=== PATIENT | female | born 1990 | race Caucasian/White ===

== ENCOUNTER 2022-06-11 20:04 | Emergency (ER) | payer MEDICAID, SELFPAY ==
[2022-06-11] VITALS (7 sets, daily range): BP systolic 118–147; BP diastolic 67–95; PULSE 72–86; RESP 12–25; TEMP 36.4; O2SAT 97–99; BMI 51.5
--- NOTE | 2022-06-11 20:08 | ECG_ITS ---
[facility] Test Date: 2022-06-11 Pat Name: Afshan Ratliff Department: Room: Gender: Female Aerial Installer: : 1990 Requested By: Alexandrea Moreno Order Number: [id number] Chavo MD: Yanira Patel M.D. Measurements Intervals [place] Rate: 84 P: 47 VA: 197 QRS: 22 QRSD: 114 T: 24 QT: 367 QTc: 434 Interpretive Statements SINUS RHYTHM WITH SINUS ARRHYTHMIA INCOMPLETE RIGHT BUNDLE BRANCH BLOCK [90+ ms QRS DURATION, TERMINAL R IN V1/V2, 40+ ms S IN I/aVL/V4/V5/V6] NONSPECIFIC ST ELEVATION [0.05+ mV ST ELEVATION] No previous ECG available for comparison Electronically Signed On 06-12-2022 19:03:43 DIDACTIC PROGRAM IN DIETETICS DIRECTOR by Yanira Patel M.D. [id number]
[2022-06-11 21:03] LABS: Basophils # 0.1 10^3/uL (0.0-0.1); Basophils % 0.5 %; Eosinophils # 0.2 10^3/uL (0.0-0.8); Hematocrit 32.9 % (37.0-47.0); Hemoglobin 10.4 g/dL (11.5-15.3); Lymphocytes # 2.8 10^3/uL (0.8-4.8); Lymphocytes % 25.6 %; Mean Corpuscular HGB Conc 31.6 g/dL (30.0-36.0); Mean Corpuscular Hemoglobin 25.1 pg (28.0-34.0); Mean Corpuscular Volume 79.5 fl (81-99); Mean Platelet Volume 9.5 fL (7.4-10.4); Monocytes # 0.6 10^3/uL (0.2-0.9); Neutrophils # 7.31 10^3/uL (1.8-7.7); Neutrophils % 66.5 %; Nucleated Red Blood Cells % 0 %; Platelet Count 341 10^3/cmm (130-400); Red Blood Count 4.14 10^6/uL (4.1-5.3); Red Cell Distribution Width 15.3 % (12.1-15.1)
[2022-06-11 21:16] LABS: HCG, Serum Qual Negative (Negative)
--- NOTE | 2022-06-11 21:48 | W.ED.SYNCOPE ---
HPI - Syncope General: Chief Complaint: Syncope Stated Complaint: DIZZY Time Seen by Provider: 06/11/22 21:42 Source: patient Mode of arrival: ambulatory Limitations: no limitations History of Present Illness: 31-year-old female who states she had went to the bathroom states started feeling lightheaded dizzy and nauseous states that she got on her knees and vomited and then had a syncopal event. States that since then she is just felt generally weak she denies any chest pain denies any headache denies any shortness of breath denies any worsening proving factors. Associated symptoms: Deny fever(s) or headache(s) Review of Systems Const: Denies: fever(s), chills, body aches or change in appetite Eyes: Denies: blurry vision or eye discomfort ENMT: Denies: throat pain or dental pain Card: Reports: syncope Resp: Denies: dyspnea GI: Reports: vomiting : Denies: dysuria Musc: Denies: neck pain or back pain Skin/Breast: Denies: rash Neuro: Denies: headache(s) Psych: Denies: depression Theo/Lymph: Denies: easy bruising All/Imm: Denies: urticaria PFSH ED PFSH: Medical History (Updated 06/11/22 @ 22:37 by Alexandrea Moreno MD) Psychiatric care Social History Smoking and tobacco status: never smoked Second hand smoke exposure: No Smoking risk assessment/counseling performed?: No Alcohol intake: current Alcohol intake frequency: holidays/special occasions only Alcohol type: beer, wine and hard liquor Desire information about alcohol rehabilitation?: No Counseling given: Yes (Alcohol & meds don't mix.) Desire information about substance/drug rehabilitation?: No Counseling given: No Female Reproductive History: Date of last menstrual period: 06/04/22 Physical Exam Const: COMMON NORMALS: no acute distress, patient oriented x3 and healthy appearing HENMT: COMMON NORMALS: normocephalic and atraumatic HEAD & SCALP: normocephalic and atraumatic Eye: COMMON NORMALS: Equal, round and reactive pupils present and EOMs intact bilaterally PUPIL: Yes Equal, round and reactive pupils present Neck/C-Spine: COMMON NORMALS: full ROM and supple Chest: COMMONS NORMALS: normal inspection of the chest and normal palpation of entire chest wall Resp: COMMON NORMALS: normal respiratory effort, No retractions, No use of accessory muscles and clear to auscultation bilaterally AUSCULTATION: clear to auscultation bilaterally Cardio: COMMON NORMALS: regular rate, regular rhythm and No murmurs present (Cardio) RATE: regular rate RHYTHM: regular rhythm GI: COMMON NORMALS: Normal to inspection, nondistended, normoactive bowel sounds present, Soft to palpation, non-tender and no masses PALPATION: Yes Soft to palpation Extremity: COMMON NORMALS: normal to inspection and full ROM Neuro: COMMON NORMALS: patient oriented x3, moves all extremities and no focal motor deficits Psych: COMMON NORMALS: mental status grossly normal, Normal thought process present and cooperative THOUGHT PROCESS: Normal thought process present Skin: COMMON NORMALS: no rashes or lesions noted and no wounds GENERAL SKIN EXAM: no rashes or lesions noted Course Vital Signs: Vital signs: Vital Signs Temperature 97.6 F 06/11/22 20:33 Pulse Rate 84 06/11/22 21:46 Respiratory Rate 25 H 06/11/22 21:46 Blood Pressure 125/79 06/11/22 21:46 Pulse Oximetry 98 06/11/22 21:46 Oxygen Delivery Me thod 06/11/22 21:46 MDM - Syncope Medical Decision Making Patient presents here with syncopal event is likely a vagal event. Patient is stable for discharge blood work here is negative her vitals here been normal she is stable and return if worsening. Lab Data 06/11/22 20:58 Laboratory Results WBC 11.0 10^3/uL (4.0-10.0) H 06/11/22 20:58 RBC 4.14 10^6/uL (4.1-5.3) 06/11/22 20:58 Hgb 10.4 g/dL (11.5-15.3) L 06/11/22 20:58 Hct 32.9 % (37.0-47.0) L 06/11/22 20:58 MCV 79.5 fl (81-99) L 06/11/22 20:58 MCH 25.1 pg (28.0-34.0) L 06/11/22 20:58 MCHC 31.6 g/dL (30.0-36.0) 06/11/22 20:58 RDW 15.3 % (12.1-15.1) H 06/11/22 20:58 Plt Count 341 10^3/cmm (130-400) 06/11/22 20:58 MPV 9.5 fL (7.4-10.4) 06/11/22 20:58 Neut % (Auto) 66.5 % 06/11/22 20:58 Lymph % (Auto) 25.6 % 06/11/22 20:58 [place] % (Auto) 5.0 % 06/11/22 20:58 Eos % (Auto) 2.0 % 06/11/22 20:58 Baso % (Auto) 0.5 % 06/11/22 20:58 Neut # (Auto) 7.31 10^3/uL (1.8-7.7) 06/11/22 20:58 Lymph # (Auto) 2.8 10^3/uL (0.8-4.8) 06/11/22 20:58 [place] # (Auto) 0.6 10^3/uL (0.2-0.9) 06/11/22 20:58 Eos # (Auto) 0.2 10^3/uL (0.0-0.8) 06/11/22 20:58 Baso # (Auto) 0.1 10^3/uL (0.0-0.1) 06/11/22 20:58 Nucleated RBC % (auto) 0 % 06/11/22 20:58 Nucleated RBCs # 0.0 /100WBC 06/11/22 20:58 Sodium 139 mmol/L (136-145) 06/11/22 20:58 Potassium 3.7 mmol/L (3.5-5.1) 06/11/22 20:58 Chloride 102 mmol/L (98-107) 06/11/22 20:58 Carbon Dioxide 26 mmol/L (22-29) 06/11/22 20:58 Anion Gap 14.7 (5-19) 06/11/22 20:58 BUN 15 mg/dL (6-20) 06/11/22 20:58 Creatinine 0.8 mg/dL (0.5-0.9) 06/11/22 20:58 GFR Calculation 83.1 mL/min (90-130) L 06/11/22 20:58 Glucose 112 mg/dL (65-115) 06/11/22 20:58 Calculated Osmolality 290 mOsm/kg (285-295) 06/11/22 20:58 Calcium 9.3 mg/dL (8.5-10.5) 06/11/22 20:58 HCG, Qual Negative (Negative) 06/11/22 20:58 Discharge Plan Discharge Patient Disposition: Home Clinical Impression: Syncope Condition: Stable Prescriptions: No Action fluticasone propionate [Flonase Allergy Relief] 50 mcg/actuation spray,suspension 1 spray intranasal DAILY Rx Instructions: administer into each nostril trazodone 50 mg tablet 100 mg PO .HS PRN (Reason: insomnia) Qty: 60 2RF fluoxetine [Prozac] 20 mg capsule 20 mg PO DAILY Qty: 30 2RF Discharge Orders: Discharge ED (Routine); Ordered 06/11/22 Ordered By: Alexandrea Moreno Referrals: Binu Villeda MD [Primary Care Provider] - 1-3 days Discharge Diet: Advance as tolerated Discharge Activity: Resume usual activity Patient Instructions: Syncope (ED) Coding Level of Care Code ED Poolroom Table Attendant for Chg Fwd Exam Comprehensive
[2022-06-11] MEDS: ondansetron 2 mg/ML SDV 2 mL 4 MG IVP (22:14)
[2022-06-11] MEDS: sodium chloride 0.9% 1,000 ML 999 ML IV (22:14)
[2022-06-11 22:35] LABS: Anion Gap 14.7 (5-19); Blood Urea Nitrogen 15 mg/dL (6-20); Calcium 9.3 mg/dL (8.5-10.5); Carbon Dioxide 26 mmol/L (22-29); Chloride 102 mmol/L (98-107); Creatinine Clr Calc Pharmacy 139.0566; Glomerular Filtration Rate 83.1 mL/min (90-130); Glucose 112 mg/dL (65-115); Osmolality Calculated 290 mOsm/kg (285-295); Potassium 3.7 mmol/L (3.5-5.1); Sodium 139 mmol/L (136-145)
== END 2022-06-11 23:30 | disposition home or self-care (01) ==
PROVIDERS: Emergency Provider Emergency Medicine; PCP Family Medicine
DX: R55 Syncope and collapse (principal)
CPT/HCPCS: 36415; 80048; 84703; 85025; 93005; 96361; 96374; 99284; J2405; J7030

== ENCOUNTER 2022-07-06 17:48 | Emergency (ER) | payer MEDICAID, SELFPAY ==
[2022-07-06 18:00] VITALS: BP 128/84; PULSE 80; RESP 14; TEMP 36.6; O2SAT 98
[2022-07-06] MEDS: amoxicillin-clav 875-125 mg Tablet 1 TAB PO (20:44)
[2022-07-06] MEDS: predniSONE 20 mg Tablet 60 MG PO (20:45)
[2022-07-06] MEDS: albuterol 2.5 mg/3 mL Neb INHALATION (20:54)
[2022-07-06 20:55] VITALS: PULSE 56; RESP 18; O2SAT 99
[2022-07-06 21:01] VITALS: PULSE 58; RESP 18; O2SAT 99
[2022-07-06] MEDS: ketorolac 30 mg/mL INJ IM (21:33)
--- NOTE | 2022-07-06 21:43 | ED_ITS ---
HPI - URI/Sore Throat General: Chief Complaint: Upper Respiratory Infection Stated Complaint: FLU LIKE SYMPTOMS Time Seen by Provider: 07/06/22 20:11 Source: patient Mode of arrival: wheelchair Limitations: no limitations History of Present Illness: Patient presents to emergency department today accompanied by her younger son for evaluation treatment of various upper respiratory symptoms now for approximately 1 week. Patient states she is having cough and rhinorrhea for 1 week but seem to be worse today. She reports an intense fatigue and bilateral ear pressure with right ear pain. Patient states she feels tight in her lower chest when she coughs and feels like she may be wheezing. Patient reports of posttussive emesis episode today. She denies any history of asthma. No recorded fevers. Associated symptoms: Reports ear or mastoid pain and nasal congestion Review of Systems General: Reports: 10 or more systems reviewed and unremarkable except in HPI and below ENMT: Reports: throat pain, ear or mastoid pain, change in hearing ( echo ) and nasal congestion; Denies: ear discharge Resp: Reports: non-productive cough, wheezing and pain on inspiration PFSH ED PFSH: Medical History Psychiatric care Social History Smoking and tobacco status: never smoked Second hand smoke exposure: No Smoking risk assessment/counseling performed?: No Alcohol intake: current Alcohol intake frequency: holidays/special occasions only Alcohol type: beer, wine and hard liquor Desire information about alcohol rehabilitation?: No Counseling given: Yes (Alcohol & meds don't mix.) Desire information about substance/drug rehabilitation?: No Counseling given: No Female Reproductive History: Date of last menstrual period: 06/04/22 Physical Exam Const: COMMON NORMALS: patient oriented x3 and alert; apparent distress (Anxious) HENMT: OTHER: Patient has erythema to the right TM with purulent accumulation approximately half the eardrum. EACs clear. Left TM is erythematous and bulging with fluid but no signs of purulent accumulation. Pharynx is nonerythematous. Nasal passages are erythematous and boggy without significant accumulation present. Eye: COMMON NORMALS: Equal, round and reactive pupils present, EOMs intact bilaterally and conjunctivae normal CONJUNCTIVA: Yes conjunctivae normal PUPIL: Yes Equal, round and reactive pupils present Neck/C-Spine: COMMON NORMALS: no JVD Lymph: LYMPHATIC: no lymphadenopathy noted Resp: COMMON NORMALS: normal respiratory effort, No retractions and No use of accessory muscles; negative for clear to auscultation bilaterally (Generally coarse lung sounds, diminished at bilateral bases) AUSCULTATION: not clear to auscultation bilaterally (Generally coarse lung sounds, diminished at bilateral bases) Cardio: COMMON NORMALS: no JVD and regular rate RATE: regular rate : COMMON NORMALS: Yes no CVA tenderness BLADDER/KIDNEY EXAM: Yes no CVA tenderness Back/Pelvis: COMMON NORMALS: no CVA tenderness, thoracic and lumbar spine normal to inspection and thoraco-lumbar ROM normal Extremity: COMMON NORMALS: normal to inspection, full ROM and no pedal edema Neuro: COMMON NORMALS: patient oriented x3 SENSORIUM/ORIENTATION: Yes alert Psych: MOOD & AFFECT: Yes anxious Skin: COMMON NORMALS: no rashes or lesions noted and turgor normal GENERAL SKIN EXAM: no rashes or lesions noted and turgor normal Course Vital Signs: Vital signs: Vital Signs Temperature 97.9 F 07/06/22 18:00 Pulse Rate 58 L 07/06/22 21:01 Respiratory Rate 18 07/06/22 21:01 Blood Pressure 128/84 07/06/22 18:00 Pulse Oximetry 99 07/06/22 21:01 Oxygen Delivery Me thod 07/06/22 21:01 MDM - URI/Sore Throat Medical Decision Making Patient presents to the ER today for various upper respiratory symptoms for approximately 1 week. Patient vitals are stable on arrival however, patient is extremely anxious regarding her symptoms. Patient feels like she lost 4 hours during the day but does not indicate any type of syncopal episode. Patient has some generalized congestion and lung noise bilaterally with some diminished lung sounds at the bases and received a breathing treatment here. She did get jittery but, did open up her airways for better auscultation. Patient has some generalized coarse lung noises throughout still but no signs of consolidation. Patient has findings of a right-sided ear infection. Patient asked if we are going to have to keep her and I explained her that vital signs are stable and she does not appear toxic and shows no signs of respiratory distress. She will be treated here in the ER and sent home for further treatment. Patient states she is concerned that she will not have all of her issues addressed and treated today. Went over treatment for her cough and congestion as well as her ear infection. Patient was given first set of treatment here in the ER given the time of night and the holiday. However, the rest were sent to the pharmacy on her behalf except she did request an albuterol inhaler be sent with her as well. Also at discharge, patient then began complaining of pain wanting something for her ear pain. Toradol provided. Patient was instructed to continue [id number] treatments and can follow-up with her primary care at the end of the week. Differential Diagnosis Likely upper respiratory infection, otitis media, sinusitis, viral infection, bronchitis and influenza Discharge Plan Discharge Patient Disposition: Home Clinical Impression: Acute right otitis media, Acute lower respiratory infection Condition: Stable Prescriptions: New amoxicillin-pot clavulanate 875-125 mg tablet 1 tab PO BID Qty: 20 0RF prednisone 20 mg tablet 20 mg PO BID 5 Days Qty: 10 0RF albuterol sulfate 90 mcg/actuation HFA aerosol inhaler 2 inh inhalation Q4H PRN (Reason: shortness of breath or wheezing) Qty: 8.5 0RF benzonatate 100 mg capsule 100 mg PO TID Qty: 30 0RF No Action fluticasone propionate [Flonase Allergy Relief] 50 mcg/actuation spray,suspension 1 spray intranasal DAILY Rx Instructions: administer into each nostril trazodone 50 mg tablet 100 mg PO .HS PRN (Reason: insomnia) Qty: 60 2RF fluoxetine [Prozac] 20 mg capsule 20 mg PO DAILY Qty: 30 2RF Discharge Orders: Discharge ED (Routine); Ordered 07/06/22 Ordered By: Clementina Bowen Referrals: Binu Villeda MD [Primary Care Provider] - Discharge Diet: Usual diet Discharge Activity: Increase activity as tolerated Patient Instructions: Ear Infection (ED), Acute Cough (ED) Activity Restrictions/Additional Instructions: Based on your examination, symptoms, and length of time you have been having them, we will treat for lower respiratory infection as well as the finding of the right ear infection. The antibiotic provided to you will give us coverage for both. Be sure you are eating a meal or a snack while taking this medicine as it can cause upset stomach. We will treat your cough and airway tightness with a couple different medications. For acute coughing and airway tightness we have given you a rescue inhaler. In an effort to prevent airway tightness we are treating you with prednisone. To treat your cough in general we are providing you with Tessalon Perles. You can still use [id number] medications as needed. I recommend a follow-up appointment if possible for recheck of any symptoms in 1 week. Please be aware that upper respiratory illnesses can often be accompanied by cough lasting a couple of weeks. Thank you! Coding Level of Care Code ED Supervisor Filling And Packing for Amy Mitchell
== END 2022-07-06 22:21 | disposition home or self-care (01) ==
PROVIDERS: Emergency Provider Physician Assistant; PCP Family Medicine
DX: H66.91 Otitis media, unspecified, right ear (principal); J22 Unspecified acute lower respiratory infection
CPT/HCPCS: 94640; 96372; 99284; J1885; J3535; J7512; J7613

== ENCOUNTER → 2023-03-17 14:06 | Outpatient (BNVA) | payer OTHER, SELFPAY | PROVIDERS: PCP Family Medicine; Visit Provider Dermatology | DX: F43.12 Post-traumatic stress disorder, chronic (principal) | CPT/HCPCS: 80061; 83036 ==

== ENCOUNTER 2023-04-24 09:01 | Emergency (ER) | payer OTHER, MEDICAID, SELFPAY ==
[2023-03-26 11:39] VITALS: BP 145/98; BMI 52.1
[2023-04-24] VITALS (9 sets, daily range): BP systolic 125–178; BP diastolic 74–113; PULSE 62–90; RESP 16–18; TEMP 36.8; O2SAT 99–100
--- NOTE | 2023-04-24 09:18 | CT_ITS ---
WS: [id number] CT HEAD NONCONTRAST HISTORY: MIGRAINE /hx ICH TECHNIQUE: Contiguous axial imaging performed through the brain in 2.5 mm imaging. Bone and soft tiss ue windows. Sagittal and coronal reformats reviewed. All CT scans at [facility] use at least one of these dose optimization techniques: automated exposure control; mA and/or kV adjustment per pa tient size (includes targeted exams where dose is matched to clinical indication); or iterative recon struction. DLP: 1035.68 mGy.cm COMPARISON: None available. No acute intracranial hemorrhage, midline shift or mass effect. No atrophy or prior infarcts or herniation. Ventricles: Normal size with no hydrocephalus. Paranasal sinuses: Mucoperiosteal thickening in the paranasal ethmoid air cells. No air-fluid levels within the visualized sinuses. No destruction. Mastoid air cells: Well pneumatized. Calvarium and scalp: Skull is intact with no soft tissue edema or swelling. IMPRESSION: 1. No acute intracranial hemorrhage or edema. 2. Normal ventricles. No prior infarct.
--- NOTE | 2023-04-24 09:18 | W.ED.HA ---
HPI - Headache General: Chief Complaint: Headache Stated Complaint: Headache Time Seen by Provider: 04/24/23 09:06 Source: patient Mode of arrival: ambulatory History of Present Illness: 32-year-old female presents emergency room complaint of headache that began at 530 this morning. Patient has a history of migraines history of intracranial hypertension. She is having difficulty with speech. No recent medication changes or deletions. Blood pressure is markedly elevated. MD elicited complaint: headache Onset (ago): hour(s) (4) Onset description: suddenly Location: frontal Severity: severe Quality & Timing: throbbing Exacerbating factors: none Relieving factors: nothing Associated symptoms: Deny chest pain, confusion, cough, diaphoresis, eye pain, eye redness, fever(s), lightheadedness, loss of vision, malaise, nausea, neck stiffness, numbness, paresthesias, photophobia, pre-syncope, rash, seizures, short of breath, sound sensitivity, syncope, vomiting or weakness Review of Systems Const: Denies: fever(s), malaise or diaphoresis Card: Denies: chest pain, lightheadedness, syncope or pre-syncope Resp: Denies: dyspnea GI: Denies: nausea or vomiting : Denies: dysuria, urinary frequency or urinary urgency Musc: Denies: neck pain or back pain Skin/Breast: Denies: rash Neuro: Denies: confusion PFSH ED PFSH: Medical History (Updated 04/24/23 @ 13:36 by Hernesto Jackson DO) Psychiatric care Family History (Updated 03/17/23 @ 10:22 by Joie Olvera RN) Other Cancer Hypertension Psychiatric illness Social History (Updated 03/18/23 @ 09:26 by Joie Olvera RN) Smoking and tobacco/nicotine status: never used tobacco/nicotine Second hand smoke exposure: Yes Alcohol intake: current Alcohol intake frequency: holidays/special occasions only Alcohol type: beer, wine and hard liquor Substance/Drug Use: current Substance/Drug use frequency: Special occassions/opportunity only Adopted: No Caregiver/support person: No Lives independently: Yes Household members: children Housing: Apartment Marital status: Single Number of children: 1 Highest education level completed: High School Graduate service: No Current occupational status: disabled Pets and animals: Yes Pets & animals: cat(s) and dog(s) Leisure activites: art, music, games and reading Do you think of yourself as: Straight/Heterosexual Current gender identity: Female La/Buddhism: Buddhist Special la needs: No Agree to transfusion: Yes Financial difficulty paying for basics: Somewhat Hard Female Reproductive History: Para: 1 Spontaneous abortions: Yes (X2) Physical Exam Const: GENERAL APPEARANCE: cooperative and comfortable ORIENTATION/CONSCIOUSNESS: Yes awake, Yes oriented to person, Yes oriented to place and Yes oriented to time HENMT: COMMON NORMALS: normocephalic, atraumatic and hearing grossly normal bilaterally HEAD & SCALP: normocephalic and atraumatic Eye: DIRECT OPHTHALMOSCOPY: No photophobia Resp: COMMON NORMALS: normal respiratory effort, No retractions, No use of accessory muscles and clear to auscultation bilaterally AUSCULTATION: clear to auscultation bilaterally Cardio: COMMON NORMALS: regular rate, regular rhythm and No murmurs present (Cardio) RATE: regular rate RHYTHM: regular rhythm GI: COMMON NORMALS: Soft to palpation and No hepatosplenomegaly present AUSCULTATION: Yes normoactive bowel sounds PALPATION: Yes Soft to palpation, No Tenderness to palpation present (GI), No Guarding due to palpation present (GI) and Yes No hepatosplenomegaly present Extremity: COMMON NORMALS: normal to inspection, capillary refill normal, no clubbing, cyanosis or edema, no calf tenderness and no pedal edema Neuro: SENSORIUM/ORIENTATION: Yes oriented to person, Yes oriented to place and Yes oriented to time COORDINATION/BALANCE: [id number]-dh-[id number] test normal and crrx-eo-zuoa test normal MOTOR EXAM: 5/5 motor strength present throughout COORDINATION: yublwx-ne-ujul test normal and ahnu-wn-esdu test normal Skin: COMMON NORMALS: no rashes or lesions noted GENERAL SKIN EXAM: no rashes or lesions noted Course Vital Signs: Vital signs: Vital Signs Temperature 98.3 F 04/24/23 09:03 Pulse Rate 81 04/24/23 14:45 Respiratory Rate 16 04/24/23 14:45 Blood Pressure 127/74 04/24/23 14:45 Pulse Oximetry 100 04/24/23 14:45 Oxygen Delivery Me thod Room Air 04/24/23 09:03 MDM - Headache Medical Decision Making Symptoms resolved after treatment with Depakote. Headache resolved. Initially had improved some now completely resolved. Patient's work issues have also revolved resolved. Suspect this is a migraine equivalent. Discharge patient home and to discussed Dr. Florez she recommends scheduling for outpatient MRI with and without and will have follow-up with her next week. Return if has further problems. Medical Records I reviewed the patient's medical records. Lab Data I reviewed the patient's lab results. All radiology interpretation(s) finalized by discharge Discharge Plan Discharge Patient Disposition: Home Clinical Impression: Migraine equivalent syndrome Condition: Stable Prescriptions: No Action fluticasone propionate [Flonase Allergy Relief] 50 mcg/actuation spray,suspension 1 spray intranasal QAM Rx Instructions: administer into each nostril trazodone 50 mg tablet 100 mg PO .HS PRN (Reason: insomnia) Qty: 60 2RF albuterol sulfate 90 mcg/actuation HFA aerosol inhaler 2 inh inhalation Q4H PRN (Reason: shortness of breath or wheezing) Qty: 8.5 0RF Vitamin 27 mg iron- 800 mcg Tablet 1 tab PO QAM fluoxetine 40 mg capsule 40 mg PO QAM Discharge Orders: Discharge ED (Routine); Ordered 04/24/23 Ordered By: Hernesto Jackson Referrals: Binu Villeda MD [Primary Care Provider] - Discharge Diet: Usual diet Discharge Activity: Increase activity as tolerated Patient Instructions: Opioid Safety, Pain Management Activity Restrictions/Additional Instructions: Case management will make arrangements for you to have an MRI of the head and follow-up with neurology in. Coding Level of Care Code ED Needle Board Repairer for Amy Mitchell NIH stroke score NIHSS Level Of Consciousness - 1a: 0 Level Of Consciousness Questions - 1b: Both Correct Level Of Consciousness Commands - 1c: Both Correct Best Gaze - 2: Normal Visual Sullivan - 3: No Visual Loss Facial Palsy - 4: Normal Motor Arm Right - 5: No Drift Motor Arm Left - 5: No Drift Motor Leg Right - 6: No Drift Motor Leg Left - 6: No Drift Limb Ataxia - 7: Absent Sensory - 8: Normal Best Language - 9: Mild/Moderate Aphasia Dysarthia - 10: Mild/Moderate Dysarthia Extinction And Inattention - 11: 0 Score Total Score: 2
[2023-04-24] MEDS: sodium chloride 0.9% 1,000 ML 999 ML IV (09:38)
[2023-04-24] MEDS: ketorolac 30 mg/mL INJ IVP (09:38)
[2023-04-24] MEDS: promethazine 25 mg/mL SDV 1 mL IM (09:38)
[2023-04-24] MEDS: amlodipine 10 mg Tablet PO (09:38)
[2023-04-24] MEDS: labetalol 5 mg/mL SDV 20mL 10 MG IVP (09:38)
--- NOTE | 2023-04-24 10:07 | PC.PHAR ---
PT STATES USES RECREATIONAL CANNABIS, LAST USED 2 DAYS AGO. 04/24/23
[2023-04-24] MEDS: valproic acid inj 500 MG in sodium chloride 0.9% 50 ML 55 MG IV ×2 (10:32→13:21)
--- NOTE | 2023-04-27 11:47 | PC.SOCIAL ---
Neurology Referral Referral to clinic at this time. Clinic to contact patient with appt date/time.
--- NOTE | 2023-04-28 08:15 | DCPLANNER ---
Sent Message and task, faxed and scanned, [id number]
== END 2023-04-24 14:46 | disposition home or self-care (01) ==
PROVIDERS: Emergency Provider Family Medicine; PCP Family Medicine
DX: G43.809 Other migraine, not intractable, without status migrainosus (principal)
CPT/HCPCS: 70450; 96365; 96366; 96372; 96375; 99285; J1885; J2550; J3490; J7030

== ENCOUNTER 2023-04-27 07:13 | Outpatient (CLI) | payer MEDICAID, SELFPAY ==
[2023-03-26 11:39] VITALS: BP 145/98; BMI 52.1
--- NOTE | 2023-04-27 07:21 | MR_ITS ---
WS: [id number] MRI BRAIN WITH AND WITHOUT CONTRAST HISTORY: MIGRAINE WITH AURA COMPARISON: CT head 04/24/2023 TECHNIQUE: Multiplanar imaging performed through the brain with MultiHance 20 ml's IV. No acute infarcts are seen. Schilling-white matter differentiation is well preserved. Normal hippocampal f ormations. No atrophy. No susceptibility artifacts or prior lacunar infarcts. Ventricles and extra-axial spaces are normal. Clivus and pituitary gland are normal. Visualized posterior fossa and brainstem are also normal. Postcontrast images are negative for masses or vascular malformations. Dural venous sinuses are normal. Paranasal sinuses: Well aerated with no significant disease. Mastoid air cells: Normal. Calvarium and scalp: Normal. IMPRESSION: 1. Normal MRI brain with contrast. 2. No prior infarcts or atrophy. Normal hippocampal formations.
[2023-04-27] MEDS: gadobenate dimeglumine 20 mL vial IV (08:02)
== END 2023-04-27 07:14 | disposition home or self-care (01) ==
PROVIDERS: PCP Family Medicine; Visit Provider Family Medicine
DX: G43.109 Migraine with aura, not intractable, without status migrainosus (principal)
CPT/HCPCS: 70553; A9577

== ENCOUNTER 2023-09-04 19:32 | Emergency (ER) | payer MEDICAID, SELFPAY ==
[2023-03-26 11:39] VITALS: BP 145/98; BMI 52.1
[2023-09-04 19:53] VITALS: BP 154/92; PULSE 69; RESP 18; TEMP 36.8; O2SAT 96
[2023-09-04 20:20] LABS: Basophils # 0.1 10^3/uL (0.0-0.1); Basophils % 0.6 %; Eosinophils # 0.2 10^3/uL (0.0-0.8); Eosinophils % 2.9 %; Hematocrit 36.5 % (36-47); Lymphocytes # 2.1 10^3/uL (0.8-4.8); Lymphocytes % 27.4 %; Mean Corpuscular HGB Conc 33.7 g/dL (30-55); Mean Corpuscular Hemoglobin 28.7 pg (27-33); Mean Corpuscular Volume 85.3 fl (85-98); Mean Platelet Volume 9.5 fL (7.4-10.4); Monocytes # 0.3 10^3/uL (0.2-0.9); Monocytes % 3.2 %; Neutrophils # 5.06 10^3/uL (1.8-7.7); Neutrophils % 65.6 %; Nucleated Red Blood Cells % 0 %; Platelet Count 284 10^3/cmm (157-399); Red Blood Count 4.28 10^6/uL (3.85-5.65); Red Cell Distribution Width 14.4 % (12.1-15.1); White Blood Count 7.71 10^3/uL (3.29-11.43)
[2023-09-04 20:53] LABS: Alanine Aminotransferase 14 U/L (0-33); Albumin Level 3.9 g/dL (3.5-5.2); Alkaline Phosphatase 55 U/L (35-105); Anion Gap 11.4 (5-19); Aspartate Amino Transferase 13 U/L (0-32); Blood Urea Nitrogen 13 mg/dL (6-20); Calcium 8.9 mg/dL (8.5-10.5); Carbon Dioxide 26 mmol/L (22-29); Chloride 105 mmol/L (98-107); Globulin 3.5 g/dL (1.3-4.6); Glomerular Filtration Rate 96.4 mL/min (90-130); Glucose 106 mg/dL (65-115); Osmolality Calculated 287 mOsm/kg (285-295); Potassium 4.4 mmol/L (3.5-5.1); Sodium 138 mmol/L (136-145); Total Bilirubin 0.3 mg/dL (0.15-1.2); Total Protein 7.4 g/dL (6.6-8.7)
[2023-09-04 21:39] VITALS: BP 161/111; PULSE 79; RESP 18; O2SAT 98
--- NOTE | 2023-09-04 22:01 | ED_ITS ---
Documented by User: ADAMARIS Montiel 09/05/23 01:25 HPI - General Adult 2 General: Chief complaint: Vaginal Bleeding Stated complaint: 6 Wks Preg\Vaginal Bleeding Time Seen by Provider: 09/04/23 21:29 History of Present Illness: Patient is a 32-year-old approximately 6-week female who presents to the emergency department for evaluation of vaginal bleeding. Patient states that she noticed vaginal bleeding this morning and is concerned that she might be having a miscarriage. Patient states that she was sexually active last night and is unsure if this is related to her symptoms or not. Patient reports that she has had 2 prior spontaneous abortions. Admits to mild suprapubic cramping. Patient otherwise denies fever, chills, nausea, vomiting, lightheadedness, dizziness, chest pain, shortness of breath, palpitations, dysuria, hematuria, constipation, diarrhea, or any other associated symptoms. No other complaints at this time. Associated symptoms: Deny chest pain, dyspnea, headache(s), nausea, rash, palpitations or vomiting Review of Systems 2 General: Reports: 10 or more systems reviewed and unremarkable except in HPI and below Const: Denies: fever(s) or chills Eyes: Denies: change in vision, blurry vision, eye discharge or eye redness Card: Denies: chest pain or palpitations Resp: Denies: dyspnea, productive cough, non-productive cough, wheezing, stridor or pain on inspiration GI: Reports: abdominal pain; Denies: nausea, vomiting, diarrhea or constipation : Reports: vaginal bleeding; Denies: flank pain, difficulty voiding, dysuria or urinary frequency Musc: Denies: neck pain, back pain or extremity pain Skin/Breast: Denies: rash Neuro: Denies: headache(s) PFSH ED 2 PFSH: Medical History Psychiatric care Family History Other Cancer Hypertension Psychiatric illness Social History Smoking and tobacco/nicotine status: never used tobacco/nicotine Second hand smoke exposure: Yes Alcohol intake: current Alcohol intake frequency: holidays/special occasions only Alcohol type: beer, wine and hard liquor Substance/Drug Use: current Substance/Drug use frequency: Special occassions/opportunity only Adopted: No Caregiver/support person: No Lives independently: Yes Household members: children Housing: Apartment Marital status: Single Number of children: 1 Highest education level completed: High School Graduate service: No Current occupational status: disabled Pets and animals: Yes Pets & animals: cat(s) and dog(s) Leisure activites: art, music, games and reading Do you think of yourself as: Straight/Heterosexual Current gender identity: Female La/Jainism: Gnosticist Special la needs: No Agree to transfusion: Yes Female Reproductive History: Date of last menstrual period: 07/25/23 Para: 1 Spontaneous abortions: Yes (X2) Physical Exam 2 Const: COMMON NORMALS: no acute distress, patient oriented x3 and healthy appearing HENMT: COMMON NORMALS: normocephalic, atraumatic, moist oral mucous membranes and oropharynx normal HEAD & SCALP: normocephalic and atraumatic Eye: COMMON NORMALS: Equal, round and reactive pupils present, EOMs intact bilaterally, conjunctivae normal and no scleral icterus CONJUNCTIVA: Yes conjunctivae normal PUPIL: Yes Equal, round and reactive pupils present Neck/C-Spine: COMMON NORMALS: full ROM, no lymphadenopathy, supple and no JVD Resp: COMMON NORMALS: normal respiratory effort, No retractions, No use of accessory muscles and clear to auscultation bilaterally AUSCULTATION: clear to auscultation bilaterally Cardio: COMMON NORMALS: no JVD, regular rate, regular rhythm, S1 normal heart sound present, S2 normal heart sound present, No gallops present (Cardio), No clicks present (Cardio), No murmurs present (Cardio), No rub (Cardio) and Peripheral pulses 2+ throughout RATE: regular rate RHYTHM: regular rhythm HEART SOUNDS: S1 normal heart sound present and S2 normal heart sound present PERIPHERAL PULSES: Peripheral pulses 2+ throughout GI: COMMON NORMALS: Normal to inspection, nondistended, normoactive bowel sounds present, Soft to palpation and non-tender PALPATION: Yes Soft to palpation OTHER: No tenderness appreciated anywhere to the abdomen. : COMMON NORMALS: Yes no CVA tenderness BLADDER/KIDNEY EXAM: Yes no CVA tenderness Back/Pelvis: COMMON NORMALS: no CVA tenderness Extremity: NARRATIVE EXTREMITY EXAM: Moving bilateral upper and lower extremities without weakness or deficit. Neuro: COMMON NORMALS: patient oriented x3, CN's II-XII intact bilaterally, moves all extremities, no focal motor deficits and no sensory deficits noted Skin: COMMON NORMALS: no rashes or lesions noted GENERAL SKIN EXAM: no rashes or lesions noted Course 2 Vital Signs: Vital signs: Vital Signs Temperature 98.2 F 09/04/23 19:53 Pulse Rate 79 09/04/23 21:39 Respiratory Rate 18 09/04/23 21:39 Blood Pressure 161/111 09/04/23 21:39 Pulse Oximetry 98 09/04/23 21:39 Oxygen Delivery Me thod Room Air 09/04/23 21:39 MDM - General Adult Medical Decision Making Patient is a 32-year-old approximately 6-week female who presents to the emergency department for evaluation of vaginal bleeding. On physical examination patient is nontoxic and in no acute distress. Vital signs remained stable throughout ED course. Patient is afebrile. Patient is neurovascular intact. CBC and CMP unremarkable. Urinalysis showed 2+ leukocyte esterase, 80- 100 red blood cells, 0-4 white blood cells, 0-4 squamous cells, and trace bacteria. Urine culture currently pending. patient is Rh+. No need for RhoGAM at this time. Quantitative hCG is 214. Ultrasound was ordered to evaluate for possible ectopic . Ultrasound currently pending. At this point in time plan of care was passed over to my colleague Dr. Friedman in the emergency department. Differential diagnosis includes but is not limited to urinary tract infection, ectopic , ovarian torsion, spontaneous Lab Data 09/04/23 20:09 09/04/23 20:09 Laboratory Results WBC 7.71 10^3/uL (3.29-11.43) 09/04/23 20:09 RBC 4.28 10^6/uL (3.85-5.65) 09/04/23 20:09 Hgb 12.30 g/dL (11.27-16.99) 09/04/23 20:09 Hct 36.5 % (36-47) 09/04/23 20:09 MCV 85.3 fl (85-98) 09/04/23 20:09 MCH 28.7 pg (27-33) 09/04/23 20:09 MCHC 33.7 g/dL (30-55) 09/04/23 20:09 RDW 14.4 % (12.1-15.1) 09/04/23 20:09 Plt Count 284 10^3/cmm (157-399) 09/04/23 20:09 MPV 9.5 fL (7.4-10.4) 09/04/23 20:09 Neut % (Auto) 65.6 % 09/04/23 20:09 Lymph % (Auto) 27.4 % 09/04/23 20:09 [place] % (Auto) 3.2 % 09/04/23 20:09 Eos % (Auto) 2.9 % 09/04/23 20:09 Baso % (Auto) 0.6 % 09/04/23 20:09 Neut # (Auto) 5.06 10^3/uL (1.8-7.7) 09/04/23 20:09 Lymph # (Auto) 2.1 10^3/uL (0.8-4.8) 09/04/23 20:09 [place] # (Auto) 0.3 10^3/uL (0.2-0.9) 09/04/23 20:09 Eos # (Auto) 0.2 10^3/uL (0.0-0.8) 09/04/23 20:09 Baso # (Auto) 0.1 10^3/uL (0.0-0.1) 09/04/23 20:09 Nucleated RBC % (auto) 0 % 09/04/23 20:09 Nucleated RBCs # 0.0 /100WBC 09/04/23 20:09 Sodium 138 mmol/L (136-145) 09/04/23 20:09 Potassium 4.4 mmol/L (3.5-5.1) 09/04/23 20:09 Chloride 105 mmol/L (98-107) 09/04/23 20:09 Carbon Dioxide 26 mmol/L (22-29) 09/04/23 20:09 Anion Gap 11.4 (5-19) 09/04/23 20:09 BUN 13 mg/dL (6-20) 09/04/23 20:09 Creatinine 0.7 mg/dL (0.5-0.9) 09/04/23 20:09 GFR Calculation 96.4 mL/min (90-130) 09/04/23 20:09 Glucose 106 mg/dL (65-115) 09/04/23 20:09 Calculated Osmolality 287 mOsm/kg (285-295) 09/04/23 20:09 Calcium 8.9 mg/dL (8.5-10.5) 09/04/23 20:09 Total Bilirubin 0.3 mg/dL (0.15-1.2) 09/04/23 20:09 AST 13 U/L (0-32) 09/04/23 20:09 ALT 14 U/L (0-33) 09/04/23 20:09 Alkaline Phosphatase 55 U/L (35-105) 09/04/23 20:09 Total Protein 7.4 g/dL (6.6-8.7) 09/04/23 20:09 Albumin 3.9 g/dL (3.5-5.2) 09/04/23 20:09 Globulin 3.5 g/dL (1.3-4.6) 09/04/23 20:09 Ser , Semi-Qnt 214.90 mIU/mL 09/04/23 20:09 Urine Color Red (Yellow) A 09/04/23 21:55 Urine Appearance Bloody (CLEAR) A 09/04/23 21:55 Urine pH 5 (5-7) 09/04/23 21:55 Ur Specific [place] 1.020 (1.005-1.030) 09/04/23 21:55 Urine Protein 2+ (Negative) H 09/04/23 21:55 Urine Glucose (UA) Norm (Normal) 09/04/23 21:55 Urine Ketones 1+ (Negative) H 09/04/23 21:55 Urine Blood 3+ (Negative) H 09/04/23 21:55 Urine Nitrate Negative (Negative) 09/04/23 21:55 Urine Bilirubin Neg (Negative) 09/04/23 21:55 Urine Urobilinogen 1 mg/dL (Negative) H 09/04/23 21:55 Ur Leukocyte Esterase 2+ (Negative) H 09/04/23 21:55 Urine RBC 80-100 /hpf (0-2) H 09/04/23 21:55 Urine WBC 0-4 /hpf (0-5) H 09/04/23 21:55 Ur Squamous Epith Cells 0-4 /hpf (0-5) H 09/04/23 21:55 Amorphous Sediment Not Reportable 09/04/23 21:55 Urine Bacteria Trace /hpf (NONE) 09/04/23 21:55 Blood Type O Positive 09/04/23 20:09 Rho(D) Type Rh positive 09/04/23 20:09 Antibody Screen Negative 09/04/23 20:09 All radiology interpretation(s) finalized by discharge Discharge Plan Discharge Patient Disposition: Home Clinical Impression: , spontaneous threatened, UTI (urinary tract infection) Condition: Stable Prescriptions: New cephalexin 500 mg capsule 500 mg PO BID 7 Days Qty: 14 0RF No Action fluticasone propionate [Flonase Allergy Relief] 50 mcg/actuation spray,suspension 1 spray intranasal QAM Rx Instructions: administer into each nostril topiramate [Topamax] 100 mg tablet 100 mg PO DAILY Qty: 30 3RF Emgality Pen 120 mg/mL pen injector 240 mg SUBCUT ONCE Qty: 2 0RF Rx Instructions: loading dose Emgality Pen 120 mg/mL pen injector 120 mg SUBCUT .monthly Qty: 1 3RF Rx Instructions: start one month after loading dose bupropion HCl [Wellbutrin XL] 150 mg tablet extended release 24 hr 150 mg PO QAM Qty: 30 1RF fluoxetine 40 mg capsule 40 mg PO QAM Qty: 30 2RF albuterol sulfate 90 mcg/actuation HFA aerosol inhaler 2 inh inhalation Q4H PRN (Reason: shortness of breath or wheezing) Qty: 8.5 0RF Vitamin 27 mg iron- 800 mcg Tablet 1 tab PO QAM Discharge Orders: Discharge ED (Routine); Ordered 09/05/23 Ordered By: Wilfrido Friedman Referrals: Binu Villeda MD [Primary Care Provider] - Discharge Diet: Usual diet Patient Instructions: Opioid Safety, Pain Management Activity Restrictions/Additional Instructions: Activity Restrictions/Additional Instructions: Thank you for choosing [facility] for your healthcare needs today. Please realize that you were seen in the Emergency Department and that we are providing you with an emergency medical screening exam and this may not be a complete and all inclusive of all the testing and or medical work-up that you may need to determine your ailment or severity of your illness. No sexual activity is important to provide pelvic rest which includes no strenuous activity rest until you can contact your REHAB LIAISON on the next business day to make your immediate follow-up appointment. It is very important that you follow-up as instructed with your Primary care provider or Specialist for additional evaluation and to discuss your medical treatment plan. You may return to the Emergency Department should you have concerns or if your condition changes or worsens in any way. 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 [employer] Documented by User: Wilfrido Friedman MD 09/05/23 01:59 HPI - General Adult 2 General: Chief complaint: Vaginal Bleeding Stated complaint: 6 Wks Preg\Vaginal Bleeding Time Seen by Provider: 09/04/23 21:29 PFSH ED 2 PFSH: Medical History Psychiatric care Family History Other Cancer Hypertension Psychiatric illness Social History Smoking and tobacco/nicotine status: never used tobacco/nicotine Second hand smoke exposure: Yes Alcohol intake: current Alcohol intake frequency: holidays/special occasions only Alcohol type: beer, wine and hard liquor Substance/Drug Use: current Substance/Drug use frequency: Special occassions/opportunity only Adopted: No Caregiver/support person: No Lives independently: Yes Household members: children Housing: Apartment Marital status: Single Number of children: 1 Highest education level completed: High School Graduate service: No Current occupational status: disabled Pets and animals: Yes Pets & animals: cat(s) and dog(s) Leisure activites: art, music, games and reading Do you think of yourself as: Straight/Heterosexual Current gender identity: Female La/Jainism: Gnosticist Special la needs: No Agree to transfusion: Yes Course 2 Vital Signs: Vital signs: Vital Signs Temperature 98.2 F 09/04/23 19:53 Pulse Rate 79 09/04/23 21:39 Respiratory Rate 18 09/04/23 21:39 Blood Pressure 161/111 09/04/23 21:39 Pulse Oximetry 98 09/04/23 21:39 Oxygen Delivery Me thod Room Air 09/04/23 21:39 MDM - General Adult Medical Decision Making Patient is a 32-year-old approximately 6-week female who presents to the emergency department for evaluation of vaginal bleeding. On physical examination patient is nontoxic and in no acute distress. Vital signs remained stable throughout ED course. Patient is afebrile. Patient is neurovascular intact. CBC and CMP unremarkable. Urinalysis showed 2+ leukocyte esterase, 80- 100 red blood cells, 0-4 white blood cells, 0-4 squamous cells, and trace bacteria. Urine culture currently pending. patient is Rh+. No need for RhoGAM at this time. Quantitative hCG is 214. Ultrasound was ordered to evaluate for possible ectopic . Ultrasound currently pending. At this point in time plan of care was passed over to my colleague Dr. Friedman in the emergency department. Differential diagnosis includes but is not limited to urinary tract infection, ectopic , ovarian torsion, spontaneous I discussed the patient's history of present illness, physical exam findings, pertinent labs, pertinent radiographic exams and plan of care with the midlevel provider. I did personally have a [id number] evaluation and discussion with the patient regarding the plan of care. Differential Diagnosis UTI, ectopic , ovarian torsion, spontaneous , Medical Records I reviewed the patient's medical records. Lab Data I reviewed the patient's lab results. 09/04/23 20:09 09/04/23 20:09 Laboratory Results WBC 7.71 10^3/uL (3.29-11.43) 09/04/23 20:09 RBC 4.28 10^6/uL (3.85-5.65) 09/04/23 20:09 Hgb 12.30 g/dL (11.27-16.99) 09/04/23 20:09 Hct 36.5 % (36-47) 09/04/23 20:09 MCV 85.3 fl (85-98) 09/04/23 20:09 MCH 28.7 pg (27-33) 09/04/23 20:09 MCHC 33.7 g/dL (30-55) 09/04/23 20:09 RDW 14.4 % (12.1-15.1) 09/04/23 20:09 Plt Count 284 10^3/cmm (157-399) 09/04/23 20:09 MPV 9.5 fL (7.4-10.4) 09/04/23 20:09 Neut % (Auto) 65.6 % 09/04/23 20:09 Lymph % (Auto) 27.4 % 09/04/23 20:09 [place] % (Auto) 3.2 % 09/04/23 20:09 Eos % (Auto) 2.9 % 09/04/23 20:09 Baso % (Auto) 0.6 % 09/04/23 20:09 Neut # (Auto) 5.06 10^3/uL (1.8-7.7) 09/04/23 20:09 Lymph # (Auto) 2.1 10^3/uL (0.8-4.8) 09/04/23 20:09 [place] # (Auto) 0.3 10^3/uL (0.2-0.9) 09/04/23 20:09 Eos # (Auto) 0.2 10^3/uL (0.0-0.8) 09/04/23 20:09 Baso # (Auto) 0.1 10^3/uL (0.0-0.1) 09/04/23 20:09 Nucleated RBC % (auto) 0 % 09/04/23 20:09 Nucleated RBCs # 0.0 /100WBC 09/04/23 20:09 Sodium 138 mmol/L (136-145) 09/04/23 20:09 Potassium 4.4 mmol/L (3.5-5.1) 09/04/23 20:09 Chloride 105 mmol/L (98-107) 09/04/23 20:09 Carbon Dioxide 26 mmol/L (22-29) 09/04/23 20:09 Anion Gap 11.4 (5-19) 09/04/23 20:09 BUN 13 mg/dL (6-20) 09/04/23 20:09 Creatinine 0.7 mg/dL (0.5-0.9) 09/04/23 20:09 GFR Calculation 96.4 mL/min (90-130) 09/04/23 20:09 Glucose 106 mg/dL (65-115) 09/04/23 20:09 Calculated Osmolality 287 mOsm/kg (285-295) 09/04/23 20:09 Calcium 8.9 mg/dL (8.5-10.5) 09/04/23 20:09 Total Bilirubin 0.3 mg/dL (0.15-1.2) 09/04/23 20:09 AST 13 U/L (0-32) 09/04/23 20:09 ALT 14 U/L (0-33) 09/04/23 20:09 Alkaline Phosphatase 55 U/L (35-105) 09/04/23 20:09 Total Protein 7.4 g/dL (6.6-8.7) 09/04/23 20:09 Albumin 3.9 g/dL (3.5-5.2) 09/04/23 20:09 Globulin 3.5 g/dL (1.3-4.6) 09/04/23 20:09 Ser , Semi-Qnt 214.90 mIU/mL 09/04/23 20:09 Urine Color Red (Yellow) A 09/04/23 21:55 Urine Appearance Bloody (CLEAR) A 09/04/23 21:55 Urine pH 5 (5-7) 09/04/23 21:55 Ur Specific [place] 1.020 (1.005-1.030) 09/04/23 21:55 Urine Protein 2+ (Negative) H 09/04/23 21:55 Urine Glucose (UA) Norm (Normal) 09/04/23 21:55 Urine Ketones 1+ (Negative) H 09/04/23 21:55 Urine Blood 3+ (Negative) H 09/04/23 21:55 Urine Nitrate Negative (Negative) 09/04/23 21:55 Urine Bilirubin Neg (Negative) 09/04/23 21:55 Urine Urobilinogen 1 mg/dL (Negative) H 09/04/23 21:55 Ur Leukocyte Esterase 2+ (Negative) H 09/04/23 21:55 Urine RBC 80-100 /hpf (0-2) H 09/04/23 21:55 Urine WBC 0-4 /hpf (0-5) H 09/04/23 21:55 Ur Squamous Epith Cells 0-4 /hpf (0-5) H 09/04/23 21:55 Amorphous Sediment Not Reportable 09/04/23 21:55 Urine Bacteria Trace /hpf (NONE) 09/04/23 21:55 Blood Type O Positive 09/04/23 20:09 Rho(D) Type Rh positive 09/04/23 20:09 Antibody Screen Negative 09/04/23 20:09 Discharge Plan Discharge Patient Disposition: Home Clinical Impression: , spontaneous threatened, UTI (urinary tract infection) Condition: Stable Prescriptions: New cephalexin 500 mg capsule 500 mg PO BID 7 Days Qty: 14 0RF No Action fluticasone propionate [Flonase Allergy Relief] 50 mcg/actuation spray,suspension 1 spray intranasal QAM Rx Instructions: administer into each nostril topiramate [Topamax] 100 mg tablet 100 mg PO DAILY Qty: 30 3RF Emgality Pen 120 mg/mL pen injector 240 mg SUBCUT ONCE Qty: 2 0RF Rx Instructions: loading dose Emgality Pen 120 mg/mL pen injector 120 mg SUBCUT .monthly Qty: 1 3RF Rx Instructions: start one month after loading dose bupropion HCl [Wellbutrin XL] 150 mg tablet extended release 24 hr 150 mg PO QAM Qty: 30 1RF fluoxetine 40 mg capsule 40 mg PO QAM Qty: 30 2RF albuterol sulfate 90 mcg/actuation HFA aerosol inhaler 2 inh inhalation Q4H PRN (Reason: shortness of breath or wheezing) Qty: 8.5 0RF Vitamin 27 mg iron- 800 mcg Tablet 1 tab PO QAM Discharge Orders: Discharge ED (Routine); Ordered 09/05/23 Ordered By: Wilfrido Friedman Referrals: Binu Villeda MD [Primary Care Provider] - Discharge Diet: Usual diet Patient Instructions: Opioid Safety, Pain Management Activity Restrictions/Additional Instructions: Activity Restrictions/Additional Instructions: Thank you for choosing [facility] for your healthcare needs today. Please realize that you were seen in the Emergency Department and that we are providing you with an emergency medical screening exam and this may not be a complete and all inclusive of all the testing and or medical work-up that you may need to determine your ailment or severity of your illness. No sexual activity is important to provide pelvic rest which includes no strenuous activity rest until you can contact your REHAB LIAISON on the next business day to make your immediate follow-up appointment. It is very important that you follow-up as instructed with your Primary care provider or Specialist for additional evaluation and to discuss your medical treatment plan. You may return to the Emergency Department should you have concerns or if your condition changes or worsens in any way. 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 Amy Mitchell
[2023-09-04 22:22] LABS: Add Urine Microscopic? YES; Bilirubin Urine Neg (Negative); Blood Urine 3+ (Negative); Glucose Urine UA Norm (Normal); Ketones Urine 1+ (Negative); Leukocyte Esterase Urine 2+ (Negative); Nitrate Urine Negative (Negative); Protein Urine 2+ (Negative); Urine Appearance Bloody (CLEAR); Urine Color Red (Yellow); Urobilinogen Urine 1 mg/dL (Negative); pH Urine 5 (5-7)
[2023-09-04 22:23] LABS: Add Urine Culture? Yes; Bacteria Urine TRACE /hpf; RBC Urine 80-100 /hpf (0-2); Squamous Epithelial Cell Urine 0-4 /hpf (0-5); WBC Urine 0-4 /hpf (0-5)
--- NOTE | 2023-09-05 | USR_ITS ---
PROCEDURE INFORMATION: Exam: US , Transvaginal and US Duplex Artery and Vein, Ovaries, Complete Exam date and time: 09/05/2023 12:51 AM Age: 32 years old Clinical indication: Lmp or gestational age (in weeks): 5w0d possible gs measurement; Right ovarian cyst. Antepartum complications; Bleeding; Additional info: Vaginal bleeding TECHNIQUE: Imaging protocol: Real-time transvaginal obstetrical ultrasound of the maternal pelvis and a first trimester with image documentation. Transvaginal imaging was used for better evaluation of the fetus, adnexa, and/or cervix. Real-time duplex ultrasound scan of the arterial and venous flow of the ovaries with B-mode, color Doppler flow and spectral waveform analysis, Complete Duplex. Duplex exam was performed to evaluate for torsion and other vascular conditions. COMPARISON: No relevant prior studies available. FINDINGS: There is a very small 4 x 2 x 3 mm fluid collection within the uterus that may represent a very early gestational sac. No definite yolk sac visible to confirm that this is a true gestational sac. Size would suggest gestational age of between four and five weeks. There are multiple apparent uterine fibroids. The largest measures about 44 x 28 x 36 mm. No significant free pelvic fluid. Small cyst in the right ovary, measuring 14 x 9 x 11 mm, possibly corpus luteum. Maternal ovaries/adnexa otherwise appear essentially unremarkable. The right ovary measures 29 x 19 x 21 mm, estimated volume 5.8 cc. The left ovary measures 26 x 17 x 23 mm, estimated volume 5.2 cc. Ovarian blood flow was evaluated with color and spectral Doppler imaging. Arterial and venous blood flow detected within each ovary. Resistance index in the right ovary is 0.46. Resistance index in the left ovary is 0.60. The sonographic appearance alone is nonspecific. This may represent an early viable intrauterine , less than five weeks gestation. If there is any further question of viability, follow up will be needed. An occult ectopic with a pseudo sac in the uterus is not yet completely excluded. Appropriate clinical follow up is needed. The urinary bladder was not completely evaluated/imaged at this time. US/US OB <=14 wk fetus w transvag IMPRESSION: 1. Possible very early gestational sac within the uterus. 2. See above discussion and recommendations. 3. Multiple uterine fibroids, details above. 4. Small cyst in the right ovary, measuring 14 x 9 x 11 mm, possibly corpus luteum. 5. Blood flow detected in each ovary. 6. Other details discussed above.
[2023-09-05 02:15] VITALS: BP 161/111; PULSE 79; RESP 18; TEMP 36.8; O2SAT 98
== END 2023-09-05 02:16 | disposition home or self-care (01) ==
PROVIDERS: Emergency Medicine; Emergency Provider Internal Medicine; PCP Family Medicine
DX: O20.0 Threatened abortion (principal); O23.41 Unspecified infection of urinary tract in pregnancy, first trimester; N39.0 Urinary tract infection, site not specified; Z3A.01 Less than 8 weeks gestation of pregnancy
CPT/HCPCS: 76801; 76817; 80053; 81001; 84702; 85025; 86850; 86900; 87086; 99284

== ENCOUNTER 2023-09-24 21:33 | Emergency (ER) | payer MEDICAID, SELFPAY ==
[2023-03-26 11:39] VITALS: BP 145/98; BMI 52.1
[2023-09-24 21:35] VITALS: BP 156/101; PULSE 100; RESP 20; TEMP 36.6; O2SAT 97; BMI 49.9
--- NOTE | 2023-09-24 21:45 | ED_ITS ---
HPI - Seizure 2 General: Chief Complaint: Seizure Stated Complaint: Seizure like activity Time Seen by Provider: 09/24/23 21:41 History of Present Illness: HPI Narrative: 32-year-old female presents emerged part with complaints of a cough. She states that she was coughing so much she felt like she was going to vomit. She states that her significant other felt like her legs were shaking so much that she was having a seizure. Patient has no history of seizures she was able to talk through her entire coughing episode there is no postictal period. She does endorse recent sick contacts and increased urinary frequency. She denies fevers chills or night sweats. Review of Systems 2 General: Reports: 10 or more systems reviewed and unremarkable except in HPI and below Resp: Reports: non-productive cough : Reports: urinary frequency PFSH ED 2 PFSH: Medical History Psychiatric care Family History Other Cancer Hypertension Psychiatric illness Social History Smoking and tobacco/nicotine status: never used tobacco/nicotine Second hand smoke exposure: Yes Alcohol intake: current Alcohol intake frequency: holidays/special occasions only Alcohol type: beer, wine and hard liquor Substance/Drug Use: current Substance/Drug use frequency: Special occassions/opportunity only Adopted: No Caregiver/support person: No Lives independently: Yes Household members: children Housing: Apartment Marital status: Single Number of children: 1 Highest education level completed: High School Graduate service: No Current occupational status: disabled Pets and animals: Yes Pets & animals: cat(s) and dog(s) Leisure activites: art, music, games and reading Do you think of yourself as: Straight/Heterosexual Current gender identity: Female La/Mandaen: Buddhism Special la needs: No Agree to transfusion: Yes Female Reproductive History: Para: 1 Spontaneous abortions: Yes (X2) Physical Exam 2 Narrative: EXAM NARRATIVE: Constitutional: the patient appears well nourished and with normal development. Vital signs reviewed as documented. HENMT: Normocephalic, atraumatic. External ears normal appearance without drainage. Nose without drainage, normal appearance. Mucus membranes moist. Neck is supple, No jugular venous distension, trachea is midline, no appreciable carotid bruits. No lymphadenopathy. No meningeal signs. Flexion, extension and lateral rotation is without pain. Eyes: Pupils are equal, round, reactive to light and accommodation. No scleral icterus. Extra-ocular movement are intact. Thorax is symmetrical and with equal rise and fall with respirations. Resp: Lungs are clear to auscultation. No wheezes, rales, crackles or ronchi at present. Cardio: Regular rate and rhythm. Positive S1, S2. No appreciable murmurs, rubs or gallops. GI: Abdominal exam reveals normal bowel sounds to all quadrants. No organomegaly. No obvious palpable masses noted. No hepatomegally appreciated. Soft, non-tender to palpation. Extremity: Extremities are non-edematous and both femoral and pedal pulses are 2+ and equal bilaterally. Moves all extremities well, sensation in all extremities. Neuro: Alert and oriented x4, person, place, time and situation. Cranial nerves II through XII are grossly intact, there is no focal neurological deficits that I can appreciate at present. Sensation intact to all extremities. 2-point discrimination intact. Light touch intact to all extremities. Motor strength in the upper and lower extremities are equal and bilateral 5/5. Psych: Cooperative, calm, normal thought process, appropriate judgment. Skin: No lesions, rashes. No gross abnormalities noted. Back: Symmetrical, no obvious deformity, No CVA tenderness Course 2 Vital Signs: Vital signs: Vital Signs Temperature 98 F 09/24/23 21:35 Pulse Rate 99 09/25/23 01:09 Respiratory Rate 22 H 09/25/23 01:09 Blood Pressure 122/96 09/25/23 01:09 Pulse Oximetry 96 09/25/23 01:09 MDM - Seizure MDM Narrative Medical decision making narrative: CBC and CMP are essentially unremarkable urinalysis is positive for hematuria and leukocyte esterase consistent with urinary tract infection I will provide the patient IV antibiotics and a written prescription for antibiotics and recommend that she follow-up with her primary care provider. I will provide her written prescription for Tessalon Perles for her cough. Medical Records Attestation: I reviewed the patient's medical records. Lab Data 09/24/23 22:10 09/24/23 22:10 Labs: Laboratory Results WBC 11.25 10^3/uL (3.29-11.43) 09/24/23 22:10 RBC 4.02 10^6/uL (3.85-5.65) 09/24/23 22:10 Hgb 11.60 g/dL (11.27-16.99) 09/24/23 22:10 Hct 35.0 % (36-47) L 09/24/23 22:10 MCV 87.1 fl (85-98) 09/24/23 22:10 MCH 28.9 pg (27-33) 09/24/23 22:10 MCHC 33.1 g/dL (30-55) 09/24/23 22:10 RDW 14.3 % (12.1-15.1) 09/24/23 22:10 Plt Count 323 10^3/cmm (157-399) 09/24/23 22:10 MPV 9.7 fL (7.4-10.4) 09/24/23 22:10 Neut % (Auto) 66.9 % 09/24/23 22:10 Lymph % (Auto) 20.4 % 09/24/23 22:10 [place] % (Auto) 3.3 % 09/24/23 22:10 Eos % (Auto) 8.6 % 09/24/23 22:10 Baso % (Auto) 0.4 % 09/24/23 22:10 Neut # (Auto) 7.53 10^3/uL (1.8-7.7) 09/24/23 22:10 Lymph # (Auto) 2.3 10^3/uL (0.8-4.8) 09/24/23 22:10 [place] # (Auto) 0.4 10^3/uL (0.2-0.9) 09/24/23 22:10 Eos # (Auto) 1.0 10^3/uL (0.0-0.8) H 09/24/23 22:10 Baso # (Auto) 0.1 10^3/uL (0.0-0.1) 09/24/23 22:10 Nucleated RBC % (auto) 0 % 09/24/23 22:10 Nucleated RBCs # 0.0 /100WBC 09/24/23 22:10 Sodium 139 mmol/L (136-145) 09/24/23 22:10 Potassium 3.9 mmol/L (3.5-5.1) 09/24/23 22:10 Chloride 104 mmol/L (98-107) 09/24/23 22:10 Carbon Dioxide 22 mmol/L (22-29) 09/24/23 22:10 Anion Gap 16.9 (5-19) 09/24/23 22:10 BUN 11 mg/dL (6-20) 09/24/23 22:10 Creatinine 0.8 mg/dL (0.5-0.9) 09/24/23 22:10 GFR Calculation 82.6 mL/min (90-130) L 09/24/23 22:10 Glucose 116 mg/dL (65-115) H 09/24/23 22:10 Calculated Osmolality 288 mOsm/kg (285-295) 09/24/23 22:10 Lactic Acid 1.6 mmol/L (0.5-2.2) 09/24/23 22:10 Calcium 8.9 mg/dL (8.5-10.5) 09/24/23 22:10 Magnesium 1.9 mg/dL (1.7-2.3) 09/24/23 22:10 Total Bilirubin 0.4 mg/dL (0.15-1.2) 09/24/23 22:10 AST 11 U/L (0-32) 09/24/23 22:10 ALT 11 U/L (0-33) 09/24/23 22:10 Alkaline Phosphatase 65 U/L (35-105) 09/24/23 22:10 Total Protein 7.5 g/dL (6.6-8.7) 09/24/23 22:10 Albumin 3.8 g/dL (3.5-5.2) 09/24/23 22:10 Globulin 3.7 g/dL (1.3-4.6) 09/24/23 22:10 Prolactin 21.75 ng/mL (4.8-23.3) 09/24/23 22:10 HCG, Qual Negative (Negative) 09/24/23 23:21 Urine Color Yellow (Yellow) 09/24/23 23:21 Urine Appearance Hazy (CLEAR) A 09/24/23 23:21 Urine pH 6 (5-7) 09/24/23 23:21 Ur Specific Price 1.020 (1.005-1.030) 09/24/23 23:21 Urine Protein Neg (Negative) 09/24/23 23:21 Urine Glucose (UA) Norm (Normal) 09/24/23 23:21 Urine Ketones Negative (Negative) 09/24/23 23:21 Urine Blood 2+ (Negative) H 09/24/23 23:21 Urine Nitrate Negative (Negative) 09/24/23 23:21 Urine Bilirubin Neg (Negative) 09/24/23 23:21 Urine Urobilinogen Neg mg/dL (Negative) 09/24/23 23:21 Ur Leukocyte Esterase 2+ (Negative) H 09/24/23 23:21 Urine RBC 5-10 /hpf (0-2) H 09/24/23 23:21 Urine WBC 15-25 /hpf (0-5) H 09/24/23 23:21 Ur Squamous Epith Cells 15-25 /hpf (0-5) H 09/24/23 23:21 Amorphous Sediment Not Reportable 09/24/23 23:21 Urine Bacteria 1+ /hpf (NONE) H 09/24/23 23:21 Urine Mucus 2+ /hpf 09/24/23 23:21 Urine Trichomonas Trace /hpf H 09/24/23 23:21 Urine Opiates Screen Negative ng/mL (Negative) 09/24/23 23:21 Ur Barbiturates Screen Negative ng/mL (Negative) 09/24/23 23:21 Ur Phencyclidine Scrn Negative ng/mL (Negative) 09/24/23 23:21 Ur Amphetamines Screen Negative ng/mL (Negative) 09/24/23 23:21 U Benzodiazepines Scrn Negative ng/mL (Negative) 09/24/23 23:21 Urine Cocaine Screen Negative ng/mL (Negative) 09/24/23 23:21 U Marijuana (THC) Screen Negative ng/mL (Negative) 09/24/23 23:21 Ethyl Alcohol < 10 mg/dL (0-10) 09/24/23 22:10 No radiology studies performed this visit Discharge Plan Discharge Patient Disposition: Home Clinical Impression: Viral upper respiratory illness, Cough, UTI (urinary tract infection) Condition: Stable Prescriptions: New benzonatate 200 mg capsule 200 mg PO TID Qty: 30 0RF Macrobid 100 mg capsule 100 mg PO Q12H 7 Days Qty: 14 0RF Rx Instructions: must administer with a meal/food No Action fluticasone propionate [Flonase Allergy Relief] 50 mcg/actuation spray,suspension 1 spray intranasal QAM Rx Instructions: administer into each nostril topiramate [Topamax] 100 mg tablet 100 mg PO DAILY Qty: 30 3RF Emgality Pen 120 mg/mL pen injector 240 mg SUBCUT ONCE Qty: 2 0RF Rx Instructions: loading dose Emgality Pen 120 mg/mL pen injector 120 mg SUBCUT .monthly Qty: 1 3RF Rx Instructions: start one month after loading dose bupropion HCl [Wellbutrin XL] 150 mg tablet extended release 24 hr 150 mg PO QAM Qty: 30 2RF fluoxetine 40 mg capsule 40 mg PO QAM Qty: 30 2RF trazodone 50 mg tablet 100 mg PO .HS PRN (Reason: insomnia) Qty: 60 2RF albuterol sulfate 90 mcg/actuation HFA aerosol inhaler 2 inh inhalation Q4H PRN (Reason: shortness of breath or wheezing) Qty: 8.5 0RF Vitamin 27 mg iron- 800 mcg Tablet 1 tab PO QAM Discharge Orders: Discharge ED (Routine); Ordered 09/25/23 Ordered By: Wilfrido Friedman Referrals: Binu Villeda MD [Primary Care Provider] - Discharge Diet: Usual diet Discharge Activity: Resume usual activity Patient Instructions: Opioid Safety, Pain Management Activity Restrictions/Additional Instructions: Activity Restrictions/Additional Instructions: Thank you for choosing [facility] for your healthcare needs today. Please realize that you were seen in the Emergency Department and that we are providing you with an emergency medical screening exam and this may not be a complete and all inclusive of all the testing and or medical work-up that you may need to determine your ailment or severity of your illness. It is very important that you follow-up as instructed with your Primary care provider or Specialist for additional evaluation and to discuss your medical treatment plan. You may return to the Emergency Department should you have concerns or if your condition changes or worsens in any way. Coding Level of Care Code ED Stained Glass Glazier Helper for Amy Mitchell
[2023-09-24 22:21] LABS: Basophils # 0.1 10^3/uL (0.0-0.1); Basophils % 0.4 %; Eosinophils % 8.6 %; Lymphocytes # 2.3 10^3/uL (0.8-4.8); Lymphocytes % 20.4 %; Mean Corpuscular HGB Conc 33.1 g/dL (30-55); Mean Corpuscular Hemoglobin 28.9 pg (27-33); Mean Corpuscular Volume 87.1 fl (85-98); Mean Platelet Volume 9.7 fL (7.4-10.4); Monocytes # 0.4 10^3/uL (0.2-0.9); Monocytes % 3.3 %; Neutrophils # 7.53 10^3/uL (1.8-7.7); Neutrophils % 66.9 %; Nucleated Red Blood Cells % 0 %; Platelet Count 323 10^3/cmm (157-399); Red Blood Count 4.02 10^6/uL (3.85-5.65); Red Cell Distribution Width 14.3 % (12.1-15.1); White Blood Count 11.25 10^3/uL (3.29-11.43)
[2023-09-24 22:32] LABS: Lactic Sepsis W/Reflex 1.6 mmol/L (0.5-2.2)
[2023-09-24 22:44] LABS: Alanine Aminotransferase 11 U/L (0-33); Albumin Level 3.8 g/dL (3.5-5.2); Alkaline Phosphatase 65 U/L (35-105); Anion Gap 16.9 (5-19); Aspartate Amino Transferase 11 U/L (0-32); Blood Urea Nitrogen 11 mg/dL (6-20); Calcium 8.9 mg/dL (8.5-10.5); Carbon Dioxide 22 mmol/L (22-29); Chloride 104 mmol/L (98-107); Globulin 3.7 g/dL (1.3-4.6); Glomerular Filtration Rate 82.6 mL/min (90-130); Glucose 116 mg/dL (65-115); Magnesium 1.9 mg/dL (1.7-2.3); Osmolality Calculated 288 mOsm/kg (285-295); Potassium 3.9 mmol/L (3.5-5.1); Sodium 139 mmol/L (136-145); Total Bilirubin 0.4 mg/dL (0.15-1.2); Total Protein 7.5 g/dL (6.6-8.7)
[2023-09-24 22:47] LABS: Alcohol Level < 10 mg/dL (0-10)
[2023-09-24 22:55] VITALS: BP 124/82; PULSE 93; RESP 20; O2SAT 96
[2023-09-24 23:31] LABS: HCG Qualitative Urine. Negative (Negative)
[2023-09-24 23:37] LABS: Amphetamines Screen Urine Negative (Negative); Barbiturates Screen Urine Negative (Negative); Benzodiazepines Screen Urine Negative (Negative); Cocaine Screen Urine Negative (Negative); Opiate Screen Urine Negative (Negative); PCP Screen Urine Negative (Negative); THC Screen Urine Negative (Negative)
[2023-09-25 00:05] LABS: Add Urine Microscopic? YES; Bilirubin Urine Neg (Negative); Blood Urine 2+ (Negative); Glucose Urine UA Norm (Normal); Ketones Urine Negative (Negative); Leukocyte Esterase Urine 2+ (Negative); Nitrate Urine Negative (Negative); Protein Urine Neg (Negative); Urine Appearance Hazy (CLEAR); Urine Color Yellow (Yellow); Urobilinogen Urine Neg (Negative); pH Urine 6 (5-7)
[2023-09-25 00:07] LABS: Bacteria Urine 1+ /hpf; Mucus Urine 2+ /hpf; Squamous Epithelial Cell Urine 15-25 /hpf (0-5); Trichomonas Urine TRACE /hpf; WBC Urine 15-25 /hpf (0-5)
[2023-09-25 00:08] LABS: Add Urine Culture? No
[2023-09-25 00:13] VITALS: BP 129/79; PULSE 98; RESP 20; O2SAT 95
[2023-09-25] MEDS: cefTRIAXone 1,000 MG in sodium chloride 0.9% (plus) 50 ML 100 MG IV (00:49)
[2023-09-25 01:09] VITALS: BP 122/96; PULSE 99; RESP 22; O2SAT 96
[2023-09-25 02:10] LABS: Prolactin 21.75 ng/mL (4.8-23.3)
== END 2023-09-25 01:10 | disposition home or self-care (01) ==
PROVIDERS: Emergency Provider Internal Medicine; PCP Family Medicine
DX: J06.9 Acute upper respiratory infection, unspecified (principal); R05.9 Cough, unspecified; N39.0 Urinary tract infection, site not specified; Z77.22 Contact with and (suspected) exposure to environmental tobacco smoke (acute) (chronic)
CPT/HCPCS: 36415; 80053; 80306; 80307; 81001; 81003; 81025; 83605; 83735; 84146; 85025; 96365; 99284; J0696

== ENCOUNTER 2024-03-27 07:29 | Emergency (ER) | payer MEDICAID, SELFPAY ==
[2024-03-18 13:01] VITALS: BP 145/98; BMI 52.1
[2024-03-27 07:33] VITALS: BP 141/90; PULSE 72; TEMP 37.4; O2SAT 100; BMI 51.1
--- NOTE | 2024-03-27 07:56 | W.ED.HA ---
HPI - Headache General: Chief Complaint: Headache Stated Complaint: migraine Time Seen by Provider: 03/27/24 07:37 History of Present Illness: This patient is a 33 year old presenting with migraine. She has a history of chronic migraine and is followed by Dr. Florez -and is on Emgality monthly. Her last dose was 01 March. She says the Emgality helps for about the first half of the month but then as she gets closer to needing another dose the headaches come back. She does not take anything as an abortive medicine for migraine. She does not take any [id number] medicines. She is on other medications for anxiety, depression, asthma. No recent medication changes. She denies any other illness or vomiting. No chest pain or shortness of breath. No vision changes. She said her speech is slow but that is typical of when she has a migraine. There are no new symptoms compared to her other prior migraines. Related Data Home Medications Medication Instructions Recorded Confirmed fluticasone propionate 50 1 spray intranasal QAM 06/09/22 03/11/24 mcg/actuation nasal spray,suspension (Flonase Allergy Relief) vits no.124-ferrous fum 1 tab PO QAM 04/24/23 03/11/24 27 mg iron-folic acid 800 mcg tablet ( Vitamin) Previous Rx's Medication Instructions Recorded albuterol sulfate 90 mcg/actuation 2 inh inhalation Q4H PRN shortness 07/06/22 aerosol inhaler of breath or wheezing #8.5 grams galcanezumab-gnlm 120 mg/mL 120 mg SUBCUT .monthly #1 mL 01/08/24 subcutaneous pen injector (Emgality Pen) galcanezumab-gnlm 120 mg/mL 120 mg SUBCUT .monthly #1 mL 01/08/24 subcutaneous pen injector (Emgality Pen) bupropion HCl 150 mg 24 hr tablet, 150 mg PO QAM #30 tabs 03/11/24 extended release (Wellbutrin XL) fluoxetine 40 mg capsule 40 mg PO QAM #30 caps 03/11/24 trazodone 50 mg tablet 100 mg (2 x 50 mg) PO .HS PRN 03/11/24 insomnia #60 tabs Allergies Allergy/AdvReac Type Severity Reaction Status Date / Time Latex, Natural Rubber Allergy Intermediate Burn & Verified 03/27/24 07:40 itching. Denisa dishwashing liquid AdvReac Intermediate Redness & Uncoded 03/27/24 07:40 itching [facility] ED PFSH: Medical History Psychiatric care Family History Other Cancer Hypertension Psychiatric illness Social History Smoking and tobacco/nicotine status: never used tobacco/nicotine Second hand smoke exposure: Yes Alcohol intake: current Alcohol intake frequency: holidays/special occasions only Alcohol type: beer, wine and hard liquor Substance/Drug Use: current Substance/Drug use frequency: Special occassions/opportunity only Adopted: No Caregiver/support person: No Lives independently: Yes Household members: children Housing: Apartment Marital status: Single Number of children: 1 Highest education level completed: High School Graduate service: No Current occupational status: disabled Pets and animals: Yes Pets & animals: cat(s) and dog(s) Leisure activites: art, music, games and reading Do you think of yourself as: Straight/Heterosexual Current gender identity: Female La/Methodist: Mandaen Special la needs: No Agree to transfusion: Yes Female Reproductive History: Para: 1 Spontaneous abortions: Yes (X2) Physical Exam Const: COMMON NORMALS: no acute distress and no limitations GENERAL APPEARANCE: cooperative and comfortable HENMT: HEAD & SCALP: normal to inspection FACE & SINUS: normal facial exam Eye: GENERAL EYE: appearance normal, both eyes and all related structures VISUAL RAO: No peripheral vision loss EOM: No EOM abnormal Neck/C-Spine: COMMON NORMALS: supple, no meningeal signs and no JVD Chest: COMMONS NORMALS: normal inspection of the chest Resp: COMMON NORMALS: normal respiratory effort, No use of accessory muscles and clear to auscultation bilaterally AUSCULTATION: clear to auscultation bilaterally Cardio: COMMON NORMALS: no JVD, regular rate, regular rhythm and No murmurs present (Cardio) RATE: regular rate RHYTHM: regular rhythm GI: COMMON NORMALS: Normal to inspection, nondistended, normoactive bowel sounds present, Soft to palpation and non-tender INSPECTION: Yes normal to inspection AUSCULTATION: Yes normoactive bowel sounds PALPATION: Yes Soft to palpation Back/Pelvis: COMMON NORMALS: thoracic and lumbar spine normal to inspection Extremity: COMMON NORMALS: normal to inspection Neuro: MENINGEAL SIGNS: Yes no meningeal signs CRANIAL NERVES: Yes CN normal except as noted SENSORY EXAM: Yes extremities (Sensation is intact although patient notes she feels numb everywhere.) Psych: COMMON NORMALS: mental status grossly normal, cooperative and normal affect Skin: COMMON NORMALS: no rashes or lesions noted and turgor normal GENERAL SKIN EXAM: no rashes or lesions noted and turgor normal Course Vital Signs: Vital signs: Vital Signs Temperature 99.3 F 03/27/24 07:33 Pulse Rate 70 03/27/24 09:00 Blood Pressure 136/80 03/27/24 09:00 Pulse Oximetry 98 03/27/24 09:00 Oxygen Delivery Me thod Room Air 03/27/24 09:00 MDM - Headache Medical Decision Making Patient with a normal neuroexam. Presenting with typical chronic migraine. I reviewed her notes from prior ER visits as well as from Dr. Florez's notes. I gave the patient a migraine cocktail . She was given 50 mg of Benadryl and 5 mg of Compazine. She had relief of the headache at least partially with this treatment. She felt like she was ready to go home and try to sleep off the headache. She will follow-up with Dr. Florez to discuss any necessary medication changes. No radiology studies performed this visit Discharge Plan Discharge Patient Disposition: Home Clinical Impression: Chronic migraine without aura, intractable, with status migrainosus Condition: Stable Prescriptions: No Action fluticasone propionate [Flonase Allergy Relief] 50 mcg/actuation spray,suspension 1 spray intranasal QAM Rx Instructions: administer into each nostril bupropion HCl [Wellbutrin XL] 150 mg tablet extended release 24 hr 150 mg PO QAM Qty: 30 2RF fluoxetine 40 mg capsule 40 mg PO QAM Qty: 30 2RF trazodone 50 mg tablet 100 mg PO .HS PRN (Reason: insomnia) Qty: 60 2RF Emgality Pen 120 mg/mL pen injector 120 mg SUBCUT .monthly Qty: 1 11RF Rx Instructions: start one month after loading dose Emgality Pen 120 mg/mL pen injector 120 mg SUBCUT .monthly Qty: 1 6RF Rx Instructions: start one month after loading dose albuterol sulfate 90 mcg/actuation HFA aerosol inhaler 2 inh inhalation Q4H PRN (Reason: shortness of breath or wheezing) Qty: 8.5 0RF Vitamin 27 mg iron- 800 mcg Tablet 1 tab PO QAM Discharge Orders: Discharge ED (Routine); Ordered 03/27/24 Ordered By: Lali Still Referrals: Binu Villeda MD [Primary Care Provider] - Patient Instructions: Opioid Safety, Pain Management Coding Level of Care Code ED Historic Sites Registrar for Amy Mitchell
[2024-03-27] MEDS: prochlorperazine 10 mg/2 mL Inj 5 MG IVP (08:30)
[2024-03-27] MEDS: diphenhydrAMINE 50 mg/mL SDV 1mL IVP (08:30)
[2024-03-27 09:00] VITALS: BP 136/80; PULSE 70; O2SAT 98
[2024-03-27 09:53] VITALS: BP 142/93; PULSE 67; O2SAT 98
== END 2024-03-27 09:47 | disposition home or self-care (01) ==
PROVIDERS: Emergency Provider Emergency Medicine; PCP Family Medicine
DX: G43.711 Chronic migraine without aura, intractable, with status migrainosus (principal); Z77.22 Contact with and (suspected) exposure to environmental tobacco smoke (acute) (chronic)
CPT/HCPCS: 96374; 96375; 99284; J0780; J1200

== ENCOUNTER → 2024-04-25 09:46 | Outpatient (BNVA) | payer MEDICAID, SELFPAY ==
[2024-03-18 13:01] VITALS: BP 145/98; BMI 52.1
== END ==
PROVIDERS: PCP Family Medicine; Visit Provider Psychiatry & Neurology Psychiatry
DX: Z01.89 Encounter for other specified special examinations (principal)
CPT/HCPCS: 80061; 83036

== ENCOUNTER 2024-06-14 17:51 | Emergency (ER) | payer MEDICAID, SELFPAY ==
[2024-04-28 15:47] VITALS: BP 174/92; BMI 51.6
[2024-06-14 18:28] VITALS: BP 112/76; PULSE 97; RESP 18; TEMP 36.8; O2SAT 97
[2024-06-14 19:34] LABS: Covid PCR NEGATIVE (Negative); Influenza A NEGATIVE (Negative); Influenza B NEGATIVE (Negative); Respiratory Syncytial Virus Ce NEGATIVE (Negative)
[2024-06-14] MEDS: lidocaine 2% viscous 15 ML, aluminum-mag hydrox-simethicon 30 ML, sucralfate oral liq 1 GM PO (19:39)
[2024-06-14 19:43] LABS: Bilirubin Urine Negative (Negative); Blood Urine 1+ (Negative); Glucose Urine UA Negative (Normal); Ketones Urine Negative (Negative); Leukocyte Esterase Urine Negative (Negative); Nitrate Urine Negative (Negative); Protein Urine 1+ (Negative); Urine Appearance Cloudy (CLEAR); Urine Color Yellow (Yellow)
[2024-06-14] MEDS: ondansetron 2 mg/ML SDV 2 mL 4 MG IVP (19:45)
[2024-06-14 19:48] LABS: Add Urine Microscopic? YES; Bacteria Urine 1+ /hpf; Hyaline Casts Urine 38.88 /lpf; RBC Urine 0-2 /hpf (0-2)
--- NOTE | 2024-06-14 19:58 | ED_ITS ---
Documented by User: Hernesto Jackson DO 06/16/24 05:49 HPI - Nausea/Vomiting/Diarrhea 2 General: Chief complaint: Nausea/Vomiting/Diarrhea Stated complaint: chills n/v/d extreamly hot when moving Time Seen by Provider: 06/14/24 18:48 History of Present Illness: 53-year-old female presents emergency ro om complaining of nausea vomiting diarrhea began this morning. She has been feeling a little lightheaded had a lot of bilious vomiting. She did not not had any fever sweats or chills. She has had typical bowel movements today. She denies any hematochezia melena hematemesis or coffee-ground emesis. No dysuria urgency or frequency Associated nausea: Yes Associated symtoms: Reports nausea; Denies chest pain or dysuria Related Data Home Medications Medication Instructions Recorded Confirmed fluticasone propionate 50 1 spray intranasal QAM 06/09/22 06/03/24 mcg/actuation nasal spray,suspension (Flonase Allergy Relief) vits no.124-ferrous fum 1 tab PO QAM 04/24/23 04/15/24 27 mg iron-folic acid 800 mcg tablet ( Vitamin) ferrous sulfate 325 mg (65 mg 325 mg PO DAILY 06/03/24 06/03/24 iron) tablet (Feosol) Previous Rx's Medication Instructions Recorded albuterol sulfate 90 mcg/actuation 2 inh inhalation Q4H PRN shortness 07/06/22 aerosol inhaler of breath or wheezing #8.5 grams galcanezumab-gnlm 120 mg/mL 120 mg SUBCUT .monthly #1 mL 01/08/24 subcutaneous pen injector (Emgality Pen) galcanezumab-gnlm 120 mg/mL 120 mg SUBCUT .monthly #1 mL 01/08/24 subcutaneous pen injector (Emgality Pen) bupropion HCl 150 mg 24 hr tablet, 150 mg PO QAM #30 tabs 03/11/24 extended release (Wellbutrin XL) fluoxetine 40 mg capsule 40 mg PO QAM #30 caps 03/11/24 trazodone 50 mg tablet 100 mg (2 x 50 mg) PO .HS PRN 03/11/24 insomnia #60 tabs ondansetron 8 mg disintegrating 8 mg PO Q6H #14 tabs 06/14/24 tablet Allergies Allergy/AdvReac Type Severity Reaction Status Date / Time Latex, Natural Rubber Allergy Intermediate Burn & Verified 06/03/24 10:37 itching. Denisa dishwashing liquid AdvReac Intermediate Redness & Uncoded 06/03/24 10:37 itching Review of Systems 2 Const: Denies: fever(s) or chills Card: Denies: chest pain Resp: Denies: dyspnea GI: Reports: abdominal pain, nausea and vomiting : Denies: dysuria, urinary frequency or urinary urgency Musc: Denies: neck pain or back pain Skin/Breast: Denies: rash PFSH ED 2 PFSH: Medical History Psychiatric care Family History Other Cancer Hypertension Psychiatric illness Social History Smoking and tobacco/nicotine status: never used tobacco/nicotine Second hand smoke exposure: Yes Alcohol intake: current Alcohol intake frequency: holidays/special occasions only Alcohol type: beer, wine and hard liquor Substance/Drug Use: current Substance/Drug use frequency: Special occassions/opportunity only Adopted: No Caregiver/support person: No Lives independently: Yes Household members: children Housing: Apartment Marital status: Single Number of children: 1 Highest education level completed: High School Graduate service: No Current occupational status: disabled Pets and animals: Yes Pets & animals: dog(s) Leisure activites: clubs, art, music, games and reading Sexually active: Yes Do you think of yourself as: Straight/Heterosexual Current gender identity: Female La/Orthodox: Oriental Orthodox Special la needs: No Agree to transfusion: Yes Female Reproductive History: Date of last menstrual period: 05/31/24 Para: 1 Spontaneous abortions: Yes (X2) Physical Exam 2 Const: GENERAL APPEARANCE: cooperative ORIENTATION/CONSCIOUSNESS: Yes awake, Yes oriented to person, Yes oriented to place and Yes oriented to time HENMT: COMMON NORMALS: normocephalic, atraumatic and hearing grossly normal bilaterally HEAD & SCALP: normocephalic and atraumatic Resp: COMMON NORMALS: normal respiratory effort, No retractions, No use of accessory muscles and clear to auscultation bilaterally AUSCULTATION: clear to auscultation bilaterally Cardio: COMMON NORMALS: regular rate, regular rhythm and No murmurs present (Cardio) RATE: regular rate RHYTHM: regular rhythm GI: COMMON NORMALS: Soft to palpation and No hepatosplenomegaly present A USCULTATION: Yes normoactive bowel sounds PALPATION: Yes Soft to palpation, No Tenderness to palpation present (GI), No Guarding due to palpation present (GI) and Yes No hepatosplenomegaly present Extremity: COMMON NORMALS: normal to inspection, capillary refill normal, no clubbing, cyanosis or edema, no calf tenderness and no pedal edema Neuro: SENSORIUM/ORIENTATION: Yes oriented to person, Yes oriented to place and Yes oriented to time Skin: COMMON NORMALS: no rashes or lesions noted GENERAL SKIN EXAM: no rashes or lesions noted Course 2 Vital Signs: Vital signs: Vital Signs Temperature 98.2 F 06/14/24 18:28 Pulse Rate 104 H 06/14/24 22:05 Respiratory Rate 17 06/14/24 20:02 Blood Pressure 123/64 06/14/24 22:05 Pulse Oximetry 97 06/14/24 22:05 Oxygen Delivery Me thod Room Air 06/14/24 21:30 MDM - Nausea/Vomiting/Diarrhea Medical Decision Making Care signed out to Dr. Monsalve at change of shift. See final notes for diagnosis and disposition. Patient care transitioned me at shift change awaiting final lab work. Patient has mild leukocytosis. No anemia. No renal failure. No urinary tract infection. Flu COVID and RSV are negative Assessment and plan: Gastroenteritis - Discharged home - Discussed plan with patient. Answered any questions. - Evaluation and treatment of this problem were appropriate in the emergency setting. Medical Records I reviewed the patient's medical records. Lab Data I reviewed the patient's lab results. 06/14/24 21:05 06/14/24 20:02 Laboratory Results WBC 14.73 10^3/uL (3.29-11.43) H 06/14/24 21:05 Corrected WBC Cancelled 06/14/24 20:02 RBC 4.33 10^6/uL (3.85-5.65) 06/14/24 21:05 Hgb 12.60 g/dL (11.27-16.99) 06/14/24 21:05 Hct 37.7 % (36-47) 06/14/24 21:05 MCV 87.1 fl (85-98) 06/14/24 21:05 MCH 29.1 pg (27-33) 06/14/24 21:05 MCHC 33.4 g/dL (30-55) 06/14/24 21:05 RDW 13.7 % (12.1-15.1) 06/14/24 21:05 Plt Count 306 10^3/cmm (157-399) 06/14/24 21:05 MPV 9.9 fL (7.4-10.4) 06/14/24 21:05 Gran % Cancelled 06/14/24 20:02 Neut % (Auto) 89.7 % 06/14/24 21:05 Lymph % (Auto) 6.2 % 06/14/24 21:05 [place] % (Auto) 2.7 % 06/14/24 21:05 Eos % (Auto) 0.7 % 06/14/24 21:05 Baso % (Auto) 0.3 % 06/14/24 21:05 Neut # (Auto) 13.20 10^3/uL (1.8-7.7) H 06/14/24 21:05 Lymph # (Auto) 0.9 10^3/uL (0.8-4.8) 06/14/24 21:05 [place] # (Auto) 0.4 10^3/uL (0.2-0.9) 06/14/24 21:05 Eos # (Auto) 0.1 10^3/uL (0.0-0.8) 06/14/24 21:05 Baso # (Auto) 0.1 10^3/uL (0.0-0.1) 06/14/24 21:05 Absolute Gran (auto) Cancelled 06/14/24 20:02 Nucleated RBC % (auto) 0 % 06/14/24 21:05 Nucleated RBCs # 0.0 /100WBC 06/14/24 21:05 Sodium 133 mmol/L (136-145) L 06/14/24 20:02 Potassium 4.3 mmol/L (3.5-5.1) 06/14/24 20:02 Chloride 100 mmol/L (98-107) 06/14/24 20:02 Carbon Dioxide 18 mmol/L (22-29) L 06/14/24 20:02 Anion Gap 19.3 (5-19) H 06/14/24 20:02 BUN 19 mg/dL (6-20) 06/14/24 20:02 Creatinine 0.7 mg/dL (0.5-0.9) 06/14/24 20:02 GFR Calculation 95.8 mL/min (90-130) 06/14/24 20:02 Glucose 105 mg/dL (65-115) 06/14/24 20:02 Calculated Osmolality 279 mOsm/kg (285-295) L 06/14/24 20:02 Calcium 9.4 mg/dL (8.5-10.5) 06/14/24 20:02 Total Bilirubin 0.6 mg/dL (0.15-1.2) 06/14/24 20:02 AST 15 U/L (0-32) 06/14/24 20:02 ALT 9 U/L (0-33) 06/14/24 20:02 Alkaline Phosphatase 59 U/L (35-105) 06/14/24 20:02 Total Protein 8.0 g/dL (6.6-8.7) 06/14/24 20:02 Albumin 4.5 g/dL (3.5-5.2) 06/14/24 20:02 Globulin 3.5 g/dL (1.3-4.6) 06/14/24 20:02 Lipase 16 U/L (13-60) 06/14/24 20:02 HCG, Qual Negative (Negative) 06/14/24 21:05 Urine Color Yellow (Yellow) 06/14/24 19:20 Urine Appearance Cloudy (CLEAR) A 06/14/24 19:20 Urine pH 5.0 (5-7) 06/14/24 19:20 Ur Specific [place] 1.030 (1.005-1.030) 06/14/24 19:20 Urine Protein 1+ (Negative) A 06/14/24 19:20 Urine Glucose (UA) Negative (Normal) 06/14/24 19:20 Urine Ketones Negative (Negative) 06/14/24 19:20 Urine Blood 1+ (Negative) A 06/14/24 19:20 Urine Nitrate Negative (Negative) 06/14/24 19:20 Urine Bilirubin Negative (Negative) 06/14/24 19:20 Urine Urobilinogen 1.0 mg/dL (Negative) 06/14/24 19:20 Ur Leukocyte Esterase Negative (Negative) 06/14/24 19:20 Urine RBC 0-2 /hpf (0-2) 06/14/24 19:20 Urine WBC 6-10 /hpf (0-5) 06/14/24 19:20 Ur Squamous Epith Cells 11-20 /hpf (0-5) 06/14/24 19:20 Amorphous Sediment Not Reportable 06/14/24 19:20 Urine Bacteria 1+ /hpf (NONE) H 06/14/24 19:20 Hyaline Casts 38.88 /lpf 06/14/24 19:20 Coronavirus (PCR) Negative (Negative) 06/14/24 18:36 Influenza A (PCR) Negative (Negative) 06/14/24 18:36 Influenza Type B (PCR) Negative (Negative) 06/14/24 18:36 RSV (PCR) Negative (Negative) 06/14/24 18:36 Discharge Plan Discharge Patient Disposition: Home Clinical Impression: Gastroenteritis Condition: Stable Prescriptions: New ondansetron 8 mg tablet,disintegrating 8 mg PO Q6H Qty: 14 0RF Rx Instructions: Take 1/2-1 tab every 6 hours as needed for nausea and vomiting No Action fluticasone propionate [Flonase Allergy Relief] 50 mcg/actuation spray,suspension 1 spray intranasal QAM Rx Instructions: administer into each nostril bupropion HCl [Wellbutrin XL] 150 mg tablet extended release 24 hr 150 mg PO QAM Qty: 30 2RF fluoxetine 40 mg capsule 40 mg PO QAM Qty: 30 2RF trazodone 50 mg tablet 100 mg PO .HS PRN (Reason: insomnia) Qty: 60 2RF Emgality Pen 120 mg/mL pen injector 120 mg SUBCUT .monthly Qty: 1 11RF Rx Instructions: start one month after loading dose Emgality Pen 120 mg/mL pen injector 120 mg SUBCUT .monthly Qty: 1 6RF Rx Instructions: start one month after loading dose ferrous sulfate [Feosol] 325 mg (65 mg iron) tablet 325 mg PO DAILY albuterol sulfate 90 mcg/actuation HFA aerosol inhaler 2 inh inhalation Q4H PRN (Reason: shortness of breath or wheezing) Qty: 8.5 0RF Vitamin 27 mg iron- 800 mcg Tablet 1 tab PO QAM Discharge Orders: Discharge ED (Routine); Ordered 06/14/24 Ordered By: Lizeth Monsalve Referrals: Binu Villeda MD [Primary Care Provider] - Discharge Diet: Advance as tolerated Discharge Activity: Increase activity as tolerated Patient Instructions: Gastroenteritis (ED), Opioid Safety, Pain Management Activity Restrictions/Additional Instructions: Thank you for choosing [facility] for your healthcare needs today. Please realize this is an emergency room and that we are providing you with a medical screening exam and this may not be complete and all inclusive of all the testing and or work up that you may need to determine your ailment or severity of your illness. You have been screened and evaluated and felt safe for discharge. Health conditions do change or evolve sometimes and as such it is important that you follow up with your Primary Doctor to be re checked, 3-5 days is a general good time frame for follow up. You are always welcome to return to the ED for re assessment if your symptoms are worsening or you have new concerns Coding Level of Care Code ED Hog Operator for Chg Fwd Documented by User: Lizeth Monsalve MD 06/14/24 21:57 HPI - Nausea/Vomiting/Diarrhea 2 General: Chief complaint: Nausea/Vomiting/Diarrhea Stated complaint: chills n/v/d extreamly hot when moving Time Seen by Provider: 06/14/24 18:48 Related Data Home Medications Medication Instructions Recorded Confirmed fluticasone propionate 50 1 spray intranasal QAM 06/09/22 06/03/24 mcg/actuation nasal spray,suspension (Flonase Allergy Relief) vits no.124-ferrous fum 1 tab PO QAM 04/24/23 04/15/24 27 mg iron-folic acid 800 mcg tablet ( Vitamin) ferrous sulfate 325 mg (65 mg 325 mg PO DAILY 06/03/24 06/03/24 iron) tablet (Feosol) Previous Rx's Medication Instructions Recorded albuterol sulfate 90 mcg/actuation 2 inh inhalation Q4H PRN shortness 07/06/22 aerosol inhaler of breath or wheezing #8.5 grams galcanezumab-gnlm 120 mg/mL 120 mg SUBCUT .monthly #1 mL 01/08/24 subcutaneous pen injector (Emgality Pen) galcanezumab-gnlm 120 mg/mL 120 mg SUBCUT .monthly #1 mL 01/08/24 subcutaneous pen injector (Emgality Pen) bupropion HCl 150 mg 24 hr tablet, 150 mg PO QAM #30 tabs 03/11/24 extended release (Wellbutrin XL) fluoxetine 40 mg capsule 40 mg PO QAM #30 caps 03/11/24 trazodone 50 mg tablet 100 mg (2 x 50 mg) PO .HS PRN 03/11/24 insomnia #60 tabs ondansetron 8 mg disintegrating 8 mg PO Q6H #14 tabs 06/14/24 tablet Allergies Allergy/AdvReac Type Severity Reaction Status Date / Time Latex, Natural Rubber Allergy Intermediate Burn & Verified 06/03/24 10:37 itching. Denisa dishwashing liquid AdvReac Intermediate Redness & Uncoded 06/03/24 10:37 itching PFSH ED 2 PFSH: Medical History Psychiatric care Family History Other Cancer Hypertension Psychiatric illness Social History Smoking and tobacco/nicotine status: never used tobacco/nicotine Second hand smoke exposure: Yes Alcohol intake: current Alcohol intake frequency: holidays/special occasions only Alcohol type: beer, wine and hard liquor Substance/Drug Use: current Substance/Drug use frequency: Special occassions/opportunity only Adopted: No Caregiver/support person: No Lives independently: Yes Household members: children Housing: Apartment Marital status: Single Number of children: 1 Highest education level completed: High School Graduate service: No Current occupational status: disabled Pets and animals: Yes Pets & animals: dog(s) Leisure activites: clubs, art, music, games and reading Sexually active: Yes Do you think of yourself as: Straight/Heterosexual Current gender identity: Female La/Orthodox: Oriental Orthodox Special la needs: No Agree to transfusion: Yes Course 2 Vital Signs: Vital signs: Vital Signs Temperature 98.2 F 06/14/24 18:28 Pulse Rate 104 H 06/14/24 22:05 Respiratory Rate 17 06/14/24 20:02 Blood Pressure 123/64 06/14/24 22:05 Pulse Oximetry 97 06/14/24 22:05 Oxygen Delivery Me thod Room Air 06/14/24 21:30 MDM - Nausea/Vomiting/Diarrhea Medical Decision Making Patient care transitioned me at shift change awaiting final lab work. Patient has mild leukocytosis. No anemia. No renal failure. No urinary tract infection. Flu COVID and RSV are negative Assessment and plan: Gastroenteritis - Discharged home - Discussed plan with patient. Answered any questions. - Evaluation and treatment of this problem were appropriate in the emergency setting. Lab Data 06/14/24 21:05 06/14/24 20:02 Laboratory Results WBC 14.73 10^3/uL (3.29-11.43) H 06/14/24 21:05 Corrected WBC Cancelled 06/14/24 20:02 RBC 4.33 10^6/uL (3.85-5.65) 06/14/24 21:05 Hgb 12.60 g/dL (11.27-16.99) 06/14/24 21:05 Hct 37.7 % (36-47) 06/14/24 21:05 MCV 87.1 fl (85-98) 06/14/24 21:05 MCH 29.1 pg (27-33) 06/14/24 21:05 MCHC 33.4 g/dL (30-55) 06/14/24 21:05 RDW 13.7 % (12.1-15.1) 06/14/24 21:05 Plt Count 306 10^3/cmm (157-399) 06/14/24 21:05 MPV 9.9 fL (7.4-10.4) 06/14/24 21:05 Gran % Cancelled 06/14/24 20:02 Neut % (Auto) 89.7 % 06/14/24 21:05 Lymph % (Auto) 6.2 % 06/14/24 21:05 [place] % (Auto) 2.7 % 06/14/24 21:05 Eos % (Auto) 0.7 % 06/14/24 21:05 Baso % (Auto) 0.3 % 06/14/24 21:05 Neut # (Auto) 13.20 10^3/uL (1.8-7.7) H 06/14/24 21:05 Lymph # (Auto) 0.9 10^3/uL (0.8-4.8) 06/14/24 21:05 [place] # (Auto) 0.4 10^3/uL (0.2-0.9) 06/14/24 21:05 Eos # (Auto) 0.1 10^3/uL (0.0-0.8) 06/14/24 21:05 Baso # (Auto) 0.1 10^3/uL (0.0-0.1) 06/14/24 21:05 Absolute Gran (auto) Cancelled 06/14/24 20:02 Nucleated RBC % (auto) 0 % 06/14/24 21:05 Nucleated RBCs # 0.0 /100WBC 06/14/24 21:05 Sodium 133 mmol/L (136-145) L 06/14/24 20:02 Potassium 4.3 mmol/L (3.5-5.1) 06/14/24 20:02 Chloride 100 mmol/L (98-107) 06/14/24 20:02 Carbon Dioxide 18 mmol/L (22-29) L 06/14/24 20:02 Anion Gap 19.3 (5-19) H 06/14/24 20:02 BUN 19 mg/dL (6-20) 06/14/24 20:02 Creatinine 0.7 mg/dL (0.5-0.9) 06/14/24 20:02 GFR Calculation 95.8 mL/min (90-130) 06/14/24 20:02 Glucose 105 mg/dL (65-115) 06/14/24 20:02 Calculated Osmolality 279 mOsm/kg (285-295) L 06/14/24 20:02 Calcium 9.4 mg/dL (8.5-10.5) 06/14/24 20:02 Total Bilirubin 0.6 mg/dL (0.15-1.2) 06/14/24 20:02 AST 15 U/L (0-32) 06/14/24 20:02 ALT 9 U/L (0-33) 06/14/24 20:02 Alkaline Phosphatase 59 U/L (35-105) 06/14/24 20:02 Total Protein 8.0 g/dL (6.6-8.7) 06/14/24 20:02 Albumin 4.5 g/dL (3.5-5.2) 06/14/24 20:02 Globulin 3.5 g/dL (1.3-4.6) 06/14/24 20:02 Lipase 16 U/L (13-60) 06/14/24 20:02 HCG, Qual Negative (Negative) 06/14/24 21:05 Urine Color Yellow (Yellow) 06/14/24 19:20 Urine Appearance Cloudy (CLEAR) A 06/14/24 19:20 Urine pH 5.0 (5-7) 06/14/24 19:20 Ur Specific [place] 1.030 (1.005-1.030) 06/14/24 19:20 Urine Protein 1+ (Negative) A 06/14/24 19:20 Urine Glucose (UA) Negative (Normal) 06/14/24 19:20 Urine Ketones Negative (Negative) 06/14/24 19:20 Urine Blood 1+ (Negative) A 06/14/24 19:20 Urine Nitrate Negative (Negative) 06/14/24 19:20 Urine Bilirubin Negative (Negative) 06/14/24 19:20 Urine Urobilinogen 1.0 mg/dL (Negative) 06/14/24 19:20 Ur Leukocyte Esterase Negative (Negative) 06/14/24 19:20 Urine RBC 0-2 /hpf (0-2) 06/14/24 19:20 Urine WBC 6-10 /hpf (0-5) 06/14/24 19:20 Ur Squamous Epith Cells 11-20 /hpf (0-5) 06/14/24 19:20 Amorphous Sediment Not Reportable 06/14/24 19:20 Urine Bacteria 1+ /hpf (NONE) H 06/14/24 19:20 Hyaline Casts 38.88 /lpf 06/14/24 19:20 Coronavirus (PCR) Negative (Negative) 06/14/24 18:36 Influenza A (PCR) Negative (Negative) 06/14/24 18:36 Influenza Type B (PCR) Negative (Negative) 06/14/24 18:36 RSV (PCR) Negative (Negative) 06/14/24 18:36 No radiology studies performed this visit Discharge Plan Discharge Patient Disposition: Home Clinical Impression: Gastroenteritis Condition: Stable Prescriptions: New ondansetron 8 mg tablet,disintegrating 8 mg PO Q6H Qty: 14 0RF Rx Instructions: Take 1/2-1 tab every 6 hours as needed for nausea and vomiting No Action fluticasone propionate [Flonase Allergy Relief] 50 mcg/actuation spray,suspension 1 spray intranasal QAM Rx Instructions: administer into each nostril bupropion HCl [Wellbutrin XL] 150 mg tablet extended release 24 hr 150 mg PO QAM Qty: 30 2RF fluoxetine 40 mg capsule 40 mg PO QAM Qty: 30 2RF trazodone 50 mg tablet 100 mg PO .HS PRN (Reason: insomnia) Qty: 60 2RF Emgality Pen 120 mg/mL pen injector 120 mg SUBCUT .monthly Qty: 1 11RF Rx Instructions: start one month after loading dose Emgality Pen 120 mg/mL pen injector 120 mg SUBCUT .monthly Qty: 1 6RF Rx Instructions: start one month after loading dose ferrous sulfate [Feosol] 325 mg (65 mg iron) tablet 325 mg PO DAILY albuterol sulfate 90 mcg/actuation HFA aerosol inhaler 2 inh inhalation Q4H PRN (Reason: shortness of breath or wheezing) Qty: 8.5 0RF Vitamin 27 mg iron- 800 mcg Tablet 1 tab PO QAM Discharge Orders: Discharge ED (Routine); Ordered 06/14/24 Ordered By: Lizeth Monsalve Referrals: Binu Villeda MD [Primary Care Provider] - Discharge Diet: Advance as tolerated Discharge Activity: Increase activity as tolerated Patient Instructions: Gastroenteritis (ED), Opioid Safety, Pain Management Activity Restrictions/Additional Instructions: Thank you for choosing [facility] for your healthcare needs today. Please realize this is an emergency room and that we are providing you with a medical screening exam and this may not be complete and all inclusive of all the testing and or work up that you may need to determine your ailment or severity of your illness. You have been screened and evaluated and felt safe for discharge. Health conditions do change or evolve sometimes and as such it is important that you follow up with your Primary Doctor to be re checked, 3-5 days is a general good time frame for follow up. You are always welcome to return to the ED for re assessment if your symptoms are worsening or you have new concerns Coding Level of Care Code ED Hog Operator for Amy Mitchell
[2024-06-14 20:02] VITALS: BP 114/73; PULSE 90; RESP 17; O2SAT 99
[2024-06-14 20:30] VITALS: BP 147/68; PULSE 87; O2SAT 97
[2024-06-14 20:33] LABS: Alanine Aminotransferase 9 U/L (0-33); Albumin Level 4.5 g/dL (3.5-5.2); Alkaline Phosphatase 59 U/L (35-105); Blood Urea Nitrogen 19 mg/dL (6-20); Calcium 9.4 mg/dL (8.5-10.5); Carbon Dioxide 18 mmol/L (22-29); Chloride 100 mmol/L (98-107); Creatinine Clr Calc Pharmacy 155.9788; Globulin 3.5 g/dL (1.3-4.6); Glomerular Filtration Rate 95.8 mL/min (90-130); Glucose 105 mg/dL (65-115); Lipase 16 U/L (13-60); Osmolality Calculated 279 mOsm/kg (285-295); Sodium 133 mmol/L (136-145); Total Bilirubin 0.6 mg/dL (0.15-1.2)
[2024-06-14 20:44] LABS: Anion Gap 19.3 (5-19); Potassium 4.3 mmol/L (3.5-5.1)
[2024-06-14 20:45] LABS: Aspartate Amino Transferase 15 U/L (0-32)
[2024-06-14 21:30] VITALS: BP 134/108; PULSE 93; O2SAT 98
[2024-06-14 21:33] LABS: Basophils # 0.1 10^3/uL (0.0-0.1); Basophils % 0.3 %; Eosinophils # 0.1 10^3/uL (0.0-0.8); Eosinophils % 0.7 %; Hematocrit 37.7 % (36-47); Lymphocytes # 0.9 10^3/uL (0.8-4.8); Lymphocytes % 6.2 %; Mean Corpuscular HGB Conc 33.4 g/dL (30-55); Mean Corpuscular Hemoglobin 29.1 pg (27-33); Mean Corpuscular Volume 87.1 fl (85-98); Mean Platelet Volume 9.9 fL (7.4-10.4); Monocytes # 0.4 10^3/uL (0.2-0.9); Monocytes % 2.7 %; Neutrophils % 89.7 %; Nucleated Red Blood Cells % 0 %; Platelet Count 306 10^3/cmm (157-399); Red Blood Count 4.33 10^6/uL (3.85-5.65); Red Cell Distribution Width 13.7 % (12.1-15.1); White Blood Count 14.73 10^3/uL (3.29-11.43)
[2024-06-14 21:50] LABS: HCG, Serum Qual Negative (Negative)
[2024-06-14] MEDS: ondansetron 4 MG Tablet 8 MG PO (22:03)
[2024-06-14 22:05] VITALS: BP 123/64; PULSE 104; O2SAT 97
== END 2024-06-14 22:06 | disposition home or self-care (01) ==
PROVIDERS: Emergency Medicine; Family Medicine; Emergency Provider Emergency Medicine; PCP Family Medicine
DX: K52.9 Noninfective gastroenteritis and colitis, unspecified (principal); Z11.52 Encounter for screening for COVID-19
CPT/HCPCS: 0241U; 36415; 80053; 81001; 83690; 84703; 85025; 96374; 99284; J2405; Q0162

== ENCOUNTER 2024-07-26 14:11 | Outpatient (CLI) | payer MEDICAID, SELFPAY ==
[2024-04-28 15:47] VITALS: BP 174/92; BMI 51.6
== END 2024-07-26 14:12 | disposition home or self-care (01) ==
LOC: SLEEP 14:12
PROVIDERS: PCP Family Medicine; Visit Provider Family Medicine
DX: G47.33 Obstructive sleep apnea (adult) (pediatric) (principal); G47.36 Sleep related hypoventilation in conditions classified elsewhere
CPT/HCPCS: G0399

== ENCOUNTER 2024-10-11 09:45 | Outpatient (CLI) | payer MEDICAID, SELFPAY ==
[2024-04-28 15:47] VITALS: BP 174/92; BMI 51.6
[2024-10-11 12:34] LABS: ABG PCO2 38.1 mmHg (35-45); ABG PH Result 7.43 (7.35-7.45); Arterial Blood Gas Hematocrit 33.9 % (37-47); Base Excess ABG 0.6 mmol/L (-2.0-2.0); Blood Gas Allen Test Pos; Blood Gas Operator Identificat MONRO; Blood Gas Sample Site Radial, left; Blood Gas Sample Type Arterial; HCO3 ABG 24.9 mmol/L (22-26); HGB O2 Sat 98.1 % (95-100); Ionized Calcium Level - ABG 1.2 mmol/L (1.1-1.4); Methemoglobin 0.2 % (0.4-1.5); Oxygen Device ROOM AIR; Oxygen Saturation ABG > 99.1; PO2 FiO2 Ratio Arterial Blood 523; Potassium Level - ABG 3.7 mmol/L (3.5-5.0); Total Hemoglobin 11.1 g/dL (12-16)
== END 2024-10-11 09:46 | disposition home or self-care (01) ==
PROVIDERS: PCP Family Medicine; Visit Provider Family Medicine
DX: E66.01 Morbid (severe) obesity due to excess calories (principal)
CPT/HCPCS: 36600; 80051; 82330; 82805

== ENCOUNTER 2025-02-24 15:24 | Emergency (ER) | payer MEDICAID, SELFPAY ==
[2024-04-28 15:47] VITALS: BP 174/92; BMI 51.6
--- OUTSIDE RECORDS SUMMARY | 2025-01-31 23:59 | XMS_ITS | Continuity of Care Document ---
Author Name [facility] Address [address] [place] [address] Organization [facility] Care Team Providers Care Field Ring Assembler Name Role Phone [facility] Unavailable Unavailable Problems Problem Status Onset Date Problem Type Date of Resolution Comments Source Morbid obesity (disorder) 01/26/2025 Diagnosis Abnormal ECG (finding) 10/11/2024 Diagnosis Preprocedural examination done 10/06/2024 Diagnosis Gastroesophageal reflux disease (disorder) Active Condition Severe obesity (disorder) Active Condition Added by Discern Rule PROB_ADD_BMI Gastroesophageal reflux disease without esophagitis (disorder) Diagnosis Obese class III Diagnosis Iron deficiency anemia (disorder) Diagnosis Gastroduodenal disorder (disorder) Diagnosis Body mass index 40+ - severely obese (finding) Diagnosis Obstructive sleep apnea syndrome (disorder) Diagnosis Exercise-induced asthma (disorder) Diagnosis Steatosis of liver (disorder) Diagnosis Backache (finding) Diagnosis Benign intracranial hypertension (disorder) Diagnosis Posttraumatic stress disorder (disorder) Diagnosis History of - psychiatric disorder (context-dependent category) Diagnosis Osteoarthritis (disorder) Diagnosis Acquired absence of organ Diagnosis Obesity, class 3 Active Diagnosis Encounter for other preprocedural examination Active Diagnosis Allergies, Adverse Reactions, Alerts Substance Category Reaction Severity Reaction type Status Date Reported Comments Source Latex Assertion Allergy to substance Active [facility] Unlisted Substance - See Comment<sup >1</sup> Assertion Allergy to substance Active [facility] Soap [facility] Results Order Name Results Value Reference Range Date Interpretation Comments Source GENERAL CHEMISTRY Creatinine, standardized 0.7 mg/dL 0.5 - 1.0 01/27 10:11 :00 Interpretive Data: Xihybp-us-guj e transgender patients on testosterone therapy should have results assessed using the male reference range. Iddo-ni-ltogp e transgender patients on hormone-modul ating therapy clinical judgment is advisedfor assessment. [facility] GENERAL CHEMISTRY BUN 9 mg/dL 6 - 20 01/27 10:11 :00 [facility] GENERAL CHEMISTRY Calcium 8.9 mg/dL 8.3 - 10.6 01/27 10:11 :00 [facility] GENERAL CHEMISTRY Estimated GFR for Adults 116 mL/min/1.7 3m 01/27 10:11 :00 Interpretive Data: Changed to CKD-EPI 2020 on 2020. [facility] GENERAL CHEMISTRY Glucose Lvl 141 mg/dL 70 - 139 01/27 10:11 :00 [facility] GENERAL CHEMISTRY Estimated GFR for peds Not Calculated mL/min/1.7 3m 01/27 10:11 :00 Interpretive Data: The estimated GFR was calculated using the B tru Burns equation (2009) . Reference: Pediatric GFR calculator at [employer] Website. [facility] GENERAL CHEMISTRY Chloride 105 mmol/L 98 - 107 01/27 10:11 :00 [facility] GENERAL CHEMISTRY Sodium 138 mmol/L 136 - 145 01/27 10:11 :00 [facility] GENERAL CHEMISTRY Potassium 3.8 mmol/L 3.5 - 5.1 01/27 10:11 :00 [facility] GENERAL CHEMISTRY CO2 26 mmol/L 20 - 31 01/27 10:11 :00 [facility] GENERAL CHEMISTRY Anion gap 11 mmol/L 0 - 20 01/27 10:11 :00 [facility] HEMATOLOGY PROFILES % Basophils 0.1 % 01/27 10:11 :00 [facility] HEMATOLOGY PROFILES % Eosinophils 0.0 % 01/27 10:11 :00 [facility] HEMATOLOGY PROFILES % Monocytes 6.4 % 01/27 10:11 :00 [facility] HEMATOLOGY PROFILES Absolute Neutrophils 5.99 x10(9)/L 1.70 - 7.00 01/27 10:11 :00 [facility] HEMATOLOGY PROFILES % Immature Granulocytes 0.40 % 0.02 - 0.42 01/27 10:11 :00 [facility] HEMATOLOGY PROFILES Absolute Nucleated RBCs 0.0 x10(9)/L 0.0 - 0.0 01/27 10:11 :00 Interpretive Data: Normal values not established in patients less than 18 years old. [facility] HEMATOLOGY PROFILES % Nucleated RBCs 0.0 % 01/27 10:11 :00 [facility] HEMATOLOGY PROFILES Abs Eosinophils 0.00 x10(9)/L 0.05 - 0.50 07/18 /2025 10:11 :00 [facility] HEMATOLOGY PROFILES Abs Monocytes 0.53 x10(9)/L 0.30 - 0.90 01/27 10:11 :00 [facility] HEMATOLOGY PROFILES Abs Lymphocytes 1.70 x10(9)/L 0.90 - 2.90 01/27 10:11 :00 [facility] HEMATOLOGY PROFILES % Lymphocytes 20.6 % 01/27 10:11 :00 [facility] HEMATOLOGY PROFILES % Neutrophils 72.5 % 01/27 10:11 :00 [facility] HEMATOLOGY PROFILES Abs Immature Granulocytes 0.03 x10(9)/L 0.00 - 0.03 01/27 10:11 :00 [facility] HEMATOLOGY PROFILES Abs Basophils 0.01 x10(9)/L 0.00 - 0.30 01/27 10:11 :00 [facility] HEMATOLOGY PROFILES RDW SD 48.4 fL 36.4 - 46.3 01/27 10:11 :00 [facility] HEMATOLOGY PROFILES RDW CV 15.3 % 11.9 - 15.5 01/27 10:11 :00 [facility] HEMATOLOGY PROFILES MCHC 32.8 g/dL 32.0 - 36.0 01/27 10:11 :00 [facility] HEMATOLOGY PROFILES MCH 28.4 pg 26.0 - 33.0 01/27 10:11 :00 [facility] HEMATOLOGY PROFILES PLT 294 x10(9)/L 150 - 450 01/27 10:11 :00 [facility] HEMATOLOGY PROFILES HGB 11.2 g/dL 12.0 - 15.5 01/27 10:11 :00 Interpretive Data: Fjrjvl-by-frq e transgender patients on testosterone therapy should have results assessed using the male reference range. Kkpg-li-wkfok e transgender patients on hormone-modul ating therapy clinical judgment is advisedfor assessment. [facility] HEMATOLOGY PROFILES RBC 3.94 x10(12)/L 3.90 - 5.03 01/27 10:11 :00 [facility] HEMATOLOGY PROFILES WBC 8.26 x10(9)/L 3.50 - 10.50 01/27 10:11 :00 [facility] HEMATOLOGY PROFILES MPV 10.9 8.0 - 12.0 01/27 10:11 :00 [facility] HEMATOLOGY PROFILES HCT 34.1 % 34.9 - 44.5 01/27 10:11 :00 Interpretive Data: Wahpgf-ni-htk e transgender patients on testosterone therapy should have results assessed using the male reference range. Scfc-tq-ruwvu e transgender patients on hormone-modul ating therapy clinical judgment is advisedfor assessment. [facility] HEMATOLOGY PROFILES MCV 86.5 fL 81.6 - 98.3 01/27 10:11 :00 [facility] SITE LAB RESULTS POC U hCG (Rals) Negative *NA* (01/26/25 5:04 AM) 01/26 10:04 :00 [facility] SITE LAB RESULTS POC U hCG (Rals) Negative *NA* (09/09/24 9:51 AM) 09/09 15:51 :00 [facility] Surgical Report Surgical Report SURGICAL PATHOLOGY REPORT Patient Name: AFUA RATLIFF Specimen Number: [id number] Patient Collection Date: 09/09/2024 Submitting Physician: Ananth Robertson M.D. Signout Date: 09/12/2024 Specimen(s ) Received GASTRIC ANTRUM ======== FINAL DIAGNOSIS: GASTRIC ANTRUM, BIOPSY: REACTIVE GASTROPATH Y HELICOBACT ER ORGANISMS ARE NOT IDENTIFIED ON H&E STAINING By this signature, I attest that the above diagnosis is based upon my personal examinatio n of the tissue and slides (and/or other material indicated in the diagnosis) , per policy. Candelaria Caldear M.D. Electronic ally Signed Out ======== History GERD Gross Descriptio n In formalin labeled 'gastric antrum' are two, 3 x 2 x 2 mm and 4 x 1 x 1 mm pieces of patel-pink mucosa. Submitted entirely in 1A. (ADAMARIS Pang ([facility])) TSL The performanc e characteri stics of the immunohist ochemical stains cited in this report (if any) were determined by the [facility] Department of Pathology. They have not been cleared or approved by the U.S. Food and Drug Administra tion. The FDA has determined that such clearance or approval is not necessary. This test is for clinical purposes. It should not be regarded as investigat ional or for research. This laboratory is certified under the Clinical Laboratory Improvemen t Amendments of 1988 (CLIA) as qualified to perform high complexity clinical laboratory testing. Unless gross-only is specified in the diagnosis, the final diagnosis for each specimen is based on a microscopi c examinatio n of histologic sections of the tissue from each specimen. 09/09 10:55 :00 Missing Attachment [id number] can be viewed in source system [facility] Consultation Notes Results Value Date Source General Surgery Clinic Note Chief Complaint pop History of Present Illness Procedure: Robotic assisted laparoscopic Bejnamin-en-Y gastric bypass Date of Procedure: 01/26/25 Highest weight with MO Bariatric: 147kg_ _ Immediate Preop wt: 143 kg _ Current wt:140 kg _ Patient is a 34-year-old female with a past medical history significant for morbid obesity status post Benjamin-en-Y bypass on 01/26/2025. She is here today for a postoperative follow-up. Patient reports pain swallowing, feeling like it is getting stuck. She hasn't had a bowel movement since surgery. Patient reports ongoing nausea at baseline that worsens with food consumption. Patient unable to take Zofran as she has experienced significant nausea with this medication in the past. She is able to consume warm milk and broth which tend to make the nausea better however cold drinks tend to worsen nausea. Symptoms: -Bowel movements: None since surgery -energy:Improving -issues with incisions: No Taking vitamins: Yes Taking PPI: Yes Adequate fluid: Yes Adequate protein: Yes Exercise: Yes Medication changes from before operation:None Review of Systems Negative unless otherwise noted in the HPI. Physical Exam Vitals and Measurements HR: 70 RR: 18 BP: 133/82 SpO2: 98% HT: 164 cm WT: 140.5 kg BMI: 52.2 General: Awake, Alert, No acute distress HENT: Normocephalic, Atraumatic Eyes: Normal sclera, EOMI Respiratory: Non labored, symmetrical chest expansion. Cardiovascular: Normal peripheral perfusion Gastrointestinal: Soft, Nontender, Nondistended Skin: Well perfused, incisions clean/dry/intact Musculoskeletal: Normal ROM Neurological: Awake, alert, no focal deficits. Clinic Procedure None Assessment/Plan The patient is a 34 year old female with history of class III obesity (BMI 55.4) s/p robotic benjamin-en-Y gastric bypass, YO, OA of major joints, GERD who presents for routine clinic follow up. 1. s/p robotic assisted laparoscopic Benjamin-en-Y gastric bypass to treat preoperative obesity/morbid obesity and associated comorbidities. 2. Routine post op protocol Yes with discussion with paint department supervisor today Yes 3. Modifications to standard protocol: Discontinue Zofran, Start Reglan 5 mg oral PRN for nausea, Start Miralax BID for constipation 4. Cont PPI until 3 months post op -attended postoperative class or had discussion with paint department supervisor today to discuss dietary advancement, use of postoperative vitamins, appropriate behaviors for alf success The visit required complex medical management through an ongoing care relationship with the patient. Attestation by Ki Ordoñez MD on January 31, 2025 11:16 I personally saw and evaluated the patient on the result date found in the header of this document. I independently performed the critical/vizcaino portions of the Evaluation and Management service and discussed the management with the author responsible for the document above. Modifications have been made to note. Total Time Spent: 30 minutes. Problem List/Past Medical History Ongoing BMI 50.0-59.9, adult Chronic GERD Severe obesity Procedure/Surgical History EGD Service Date: 09/09/2024 Cholecystectomy Cyst removal L Knee Scope - ACL Repair, Meniscus Repair Medications albuterol(Ventolin HFA 90 mcg/inh inhalation aerosol), 2 Inhalation, Inhalation, q6h, PRN buPROPion(buPROPion 150 mg/24 hours (XL) oral tablet, extended release), 150 mg= 1 Tablet(s), Oral, qAM calcium-vitamin D(calcium (as carbonate)-vitamin D 600 mg-20 mcg (800 intl units) oral tablet), 1 Tablet(s), Oral, bid celecoxib(CeleBREX 200 mg oral capsule), 200 mg= 1 capsule(s), Oral, bid, PRN cetirizine(All Day Allergy (Cetirizine) 10 mg oral tablet), 10 mg= 1 Tablet(s), Oral, Daily cyanocobalamin(cyanocobalamin 5000 mcg oral tablet, extended release), 5000 mcg= 1 Tablet(s), Oral, Daily diclofenac topical(diclofenac 1% topical gel), 1 Application, Topical, qid, PRN ferrous sulfate(ferrous sulfate 324 mg (65 mg elemental iron) oral delayed release tablet), 324 mg= 1 Tablet(s), Oral, Daily FLUoxetine(FLUoxetine 40 mg oral capsule), 80 mg= 2 capsule(s), Oral, qAM fluticasone nasal(fluticasone nasal 50 mcg/inh spray), 50 mcg= 1 [place], Each Nostril, Daily galcanezumab(Emgality Prefilled Pen 120 mg/mL subcutaneous solution), 120 mg, Subcutaneous, i1kgqfc montelukast(montelukast 10 mg oral tablet), 10 mg= 1 Tablet(s), Oral, Daily multivitamin with minerals(Bariatric Fusion Multivitamin Mixed Styles Complete), 1 Tablet(s), Oral, Daily omeprazole(omeprazole 20 mg oral delayed release capsule), 20 mg= 1 capsule(s), Oral, Daily ondansetron(ondansetron 4 mg oral tablet), 4 mg= 1 Tablet(s), Oral, q8h, PRN pantoprazole(Protonix 40 mg oral delayed release tablet), 40 mg= 1 Tablet(s), Oral, Daily polyethylene glycol 3350(MiraLax oral powder for reconstitution), 17 g, Oral, Daily traZODone(traZODone 50 mg oral tablet), 100 mg= 2 Tablet(s), Oral, At Bedtime, PRN Allergies Latex No Known Medication Allergies Unlisted Substance - See Comment Social History Smoking Status Never smoker Alcohol - Denies Alcohol Use Substance Abuse - Denies Substance Abuse Family History Immunizations Health Maintenance Lab Results Diagnostic Results Visit Information Attending Physician: Ki Ordoñez MD Referring Physician: Ki Ordoñez MD Original Referring Provider: Ki Ordoñez MD Primary Care Physician: Binu Villeda MD Visit Date: 01/31/2025 01/31/2025 Op/Procedure Note DATE OF SERVICE: PREOPERATIVE DIAGNOSIS: 1.) Class III obesity with a BMI of 55.4 kg/m2 2.) Obstructive sleep apnea 3.) Osteoarthritis of major joints 4.) Gastroesophageal reflux disease POSTOPERATIVE DIAGNOSIS: 1.) Class III obesity with a BMI of 55.4 kg/m2 2.) Obstructive sleep apnea 3.) Osteoarthritis of major joints 4.) Gastroesophageal reflux disease PROCEDURES PERFORMED: 1.) Robotic Benjamin-en-Y gastric bypass 2.) Esophagogastrojejunoscopy ATTENDING SURGEON: Ki Ordoñez MD EXCAVATING CONTRACTOR: 1.) Nolan Campo MD (fellow) 2.) Bettina Hanson DO, PGY-1 (not a qualified resident) ANESTHESIA: General EBL: 10 mL COMPLICATIONS: None FINDINGS: Routine benjamin-en-Y gastric bypass. Benjamin limb 120 cm, biliopancreatic limb 75 cm. No hiatal hernia identified. Intraoperative leak test was negative. INDICATIONS: This patient is a 34 Years year-old female with a long history of class III obesity with a body mass index of 55.4 kg/m2 and comorbid medical conditions related to obesity including obstructive sleep apnea, osteoarthritis of major joints and gastroesophageal reflux disease. The patient has tried and failed nonsurgical attempts at weight loss. The patient meets NIH criteria for bariatric surgery. After an informed discussion of the risks, options and alternatives, the patient presents to us for the above-described procedure. DESCRIPTION OF PROCEDURE: The patient was taken to the operating room and placed on the operating room table in a supine position. After general anesthesia was induced, the abdomen was prepped and draped in the usual sterile fashion. A time out was performed confirming administration of pre-operative antibiotics and DVT prophylaxis. A left upper quadrant stab incision was made and a Veress needle was inserted to the abdomen. A saline drop test was performed which was negative. The abdomen was insufflated to 15 mmHg. Next, A left periumbilical 8 mm incision was made and a 5 mm optical trocar was used to enter the abdomen. The area immediately inferior to the abdominal entry site was inspected with confirmation of no visceral injury. We then turned our attention to the left upper quadrant and inspected the area immediately inferior to the abdominal entry site of the Veress needle with confirmation of no visceral injury. The Veress needle was removed from the abdomen. Three additional robotic trocars were placed under direct visualization: a 12 mm right lateral robotic trocar, a 12 mm left lateral robotic trocar and a 8 mm left far lateral robotic trocar. The 5 mm left periumbilical trocar was exchanged for a robotic 8 mm trocar, where the camera would eventually be placed. A 5 mm subxiphoid incision was made and a An liver retractor was inserted to retract the left lobe of the liver toward the anterior abdominal wall. The patient was placed in steep reverse trendelenburg, the robot was docked and the instruments were inserted. The omentum overlying the transverse colon was then divided up to the greater curvature of the stomach. The angle of His was mobilized from the left harish. The gastric pouch was created by utilizing a perigastric dissection to enter the lesser sac using the vessel sealer. Just distal to the gastric pedicle, the stomach was then divided across, medial to lateral with the blue load 60 mm linear cutting stapler. The pouch was then continued superiorly until completely divided using a series of white load 60 mm endoscopic linear cutting staplers. The posterior aspect of the pouch was freely mobile. A 36 [place] VISIGI bougie was inserted into the gastric pouch. The ligament of treitz was identified at the base of the transverse mesocolon and was measured for 75 cm. This was brought up to the gastric pouch as a loop, ensuring the biliopancreatic limb remained lateral. Attention was then turned toward creation of the gastrojejunostomy. A gastrotomy was made with monopolar scissors on the lateral 1/3 of the gastric pouch staple line. An enterotomy was made on the Benjamin limb with monopolar scissors. A white load 60mm endoscopic linear cutting stapler was then used to create the posterior aspect of the gastrojejunostomy, with one end placed in the Benjamin limb and the other in the gastrotomy. This was brought up in an omega loop fashion, ensuring the biliopancreatic limb remained lateral. The tissue was advanced within the lumen of each to 30mm on the stapler prior to firing. The 36 [place] VISIGI bougie was then passed across the gastrojejunostomy. The common enterotomy was closed with a running 3-0 Stratafix PDS spiral suture. Another running 3-0 Stratafix PDS spiral suture was used to create a second anterior row. A window in the mesentery of the loop of jejunum just lateral to the gastrojejunal anastomosis was created with the needle parts driver. The jejunum was then transected with a white load stapler, the biliopancreatic limb from the Benjamin limb. The bowel distal to the division and the gastrojejunal anastomosis was run for 120 cm, creating the Benjamin-limb. This was sutured to the bilio-pancreatic limb with a 3-0 Vicryl suture. An enterotomy was made in each loop of bowel with the monopolar scissors. The jejunojejunostomy was then created between the biliopancreatic limb and benjamin limb using a white load 60mm endoscopic linear cutting stapler. The common enterotomy was closed with a 3-0 Stratafix PDS spiral suture. Attention was then turned to closing the mesenteric spaces. The Benjamin limb was reflected laterally. A 2-0 V Loc nonabsorbable barbed suture was used to close Chavira's space, starting at the base of the mesentery and running it up close the space between the transverse colon and the proximal Benjamin limb mesentery. We then lifted the jejunojejunostomy to expose the mesenteric space below the jejunojejunostomy. A 2-0 V Loc nonabsorbable barbed suture was used to close this space in a running fashion, starting at the base of the mesentery and running up to the base of the jejunojejunostomy. The bougie was then removed and an esophagogastrojejunoscopy was performed. The proximal benjamin limb was occluded. The anastomosis was visualized, and was hemostatic and patent, allowing for passage into the benjamin limb. The anastomosis was submerged under saline in the abdomen, and using endoscopic insufflation, a negative leak test was performed. The endoscope was removed. The robotic instruments were then removed and the robot was undocked. The left periumbilical 8 mm incision was closed with an 0 Vicryl suture using a suture passer. 0.25% marcaine was infiltrated in the subcutaneous space near the incisions. All ports were removed as was the An liver retractor, with evidence of hemostasis. The skin incisions were closed with subcuticular 4-0 Monocryl sutures and sterile Dermabond was applied. The patient tolerated the procedure well. All needle, sponge, and instrument counts were correct at the end of the case. There were no complications. I was present and scrubbed for the entirety of this procedure and immediately available through the perioperative period. Due to a lack of qualified resident assistants, two attendings, Dr. Ki Ordoñez and Dr. Nolan Campo, were present and scrubbed throughout the procedure. The fellow assisted during the procedure. Fellow's assistance was necessary as a second surgeon secondary to the complicated nature of this robotic Benjamin-en-Y gastric bypass and patient class II obesity. The fellow assisted in trocar placement as well as intraoperative esophagogastroduodenoscopy. Ki Ordoñez MD 01/26/2025 Op/Procedure Note [id number] Patie nt Out-Room Date/Time: 26-JAN-2025 10:29 Primary Procedure: LAPAROSCOPIC GASTRIC BYPASS BENJAMIN-EN-Y WITH ROBOT ASSISTANCT Primary Surgeon: Ki Ordoñez MD Fellow(s): Nolan Campo MD Resident(s): Bettina Hanson DO Total estimated blood loss: 10 mL Pre Operative Diagnosis: MORBID OBESITY Post Operative Diagnosis: MORBID OBESITY Type of anesthesia: General Complications: SEE SURGEONS NOTE Specimen: N/A Implants: N/A Attestation by Ki Ordoñez MD on January 26, 2025 15:21 I agree with the above note. 01/26/2025 General Surgery Clinic Note Chief Complaint HYACINTH History of Present Illness Patient has completed preop requirements and presents today to discuss scheduling weight loss surgery. Patient has now reached a BMI of 55.4. Associated comorbidities include: YO, OA; GERD No family h/o DVT/PE No personal history of DVT/PE Dysphagia: no Reflux: yes, significant on daily PPI Tums as needed Smoking history: no NSAID use: yes, PRN Surgical history: laparoscopic cholecystectomy (2017) Preop Endoscopy: yes, 09/09/24, normal Preop EKG: yes, 10/06/24, BORDERLINE INTRAVENTRICULAR CONDUCTION DELAY Preop Labs: yes, 11/09/24 Preop studies: yes, pulm and cardiac clearance obtained. Review of Systems Review of systems performed. Pertinent positives noted in HPI. Physical Exam Vitals and Measurements HR: 99 RR: 20 BP: 133/88 SpO2: 97% HT: 164 cm WT: 149 kg BMI: 55.4 Constitutional: Well nourished, NAD HENT: Head normocephalic, atraumatic, no evidence of abnormalities. No gross nasal drainage. Mouth: oral mucosa pink and moist Neck: Soft supple without masses. Trachea midline. No thyromegaly Eyes: PEERL, EOM-intact, sclera clear. Conjunctivae wnl. No lid abrasions/lacerations Respiratory: No use of accessory muscles. Good respiratory effort Cardiovascular: Normal peripheral perfusion. No significant lower extremity edema. Abdomen: Soft without distention, masses, organomegaly, tenderness, rebound, guarding, rigidity. No anterior abdominal wall hernias present Skin: warm and dry. No obvious exposed lesions. Skin turgor wnl Psychiatric: Mood and affect WNL. Judgement and insight intact Clinic Procedure Assessment/Plan Morbid obesity Patient's BMI is now 55.4, severe. Patient is interested in laparoscopic gastric bypass due to comorbidities listed in the HPI above. After my review of patient's records and discussion with the patient I feel that patient is a good candidate for the procedure. I reviewed the following images/documents: 1.) EGD -no hiatal hernia The risks of laparoscopic Benjamin-en-Y divided gastric bypass were discussed at length with the patient. These include but are not limited to the risk of bleeding, infection, injury to adjacent organs, staple line leak, excessive or inadequate weight loss, late weight regain, dysphagia, dumping syndrome, chronic hypoglycemia, internal hernia, intussusception, small bowel obstruction, development of gallstones and nutritional deficiencies. Alternative therapies to laparoscopic Benjamin-en-Y divided gastric bypass were also discussed and include medically supervised weight loss, laparoscopic vertical sleeve gastrectomy, laparoscopic duodenal switch and laparoscopic ANTONIA-S. The benefits of laparoscopic Benjamin-en-Y divided gastric bypass include potential significant improvement in morbid obesity with improvements or resolution of comorbid conditions. Two week preoperative liquid diet Stop the following medications at the following times: none Preop studies reviewed and listed above. The visit required complex medical management through an ongoing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 meal to ensure the correct amount. j. Set a timer for 20 minutes after you have finished your first portion to allow yourself time to 'feel full' before you get additional food. k. If you find that it is difficult to control how much you are eating due to accessibility, try preparing only the correct amount for your needed caloric intake. This will make it more inconvenient to overeat due to eating quickly. 5. Mindfulness has been shown to be an effective tool in addressing grazing, overeating, and eating too fast. Some strategies for becoming more mindful of eating behaviors include: l. Chewing slowly and counting the number of times she chews before swallowing (recommendation for optimal digestion is 30 times before swallowing). Chewing slowly is important because saliva starts the process of digestion and the breaking down of food. This can decrease overeating because it allows for more time for the brain to recognize that you have eaten. m. Eating food without distractions (e.g. TV, reading, talking with someone). By shifting awareness entirely to food, she can focus on how the food impacts her emotions and body. Eating without distractions decreases the likelihood of overeating behaviors and grazing throughout the day. Thank you for this referral and please do not hesitate to contact me if I can be of further assistance. Afua Thayer, Ph.D. Associate Clinical Professor Director of Behavioral Health at [facility] [place] Department of Health Psychology Professional Services Time Documentation: Dr. Thayer spent 40 minutes interviewing and 30 minutes completing the report. 10/06/2024 General Surgery Clinic Note Chief Complaint SOV 2/3 History of Present Illness Visit type: Medically supervised weight loss visit Surgeon: Tiago -patient is interested in RYGB Patient denies any relevant or significant changes to their health history since last visit including new diagnoses, hospitalizations, ER visits. EGD completed. Patient denies smoking or vaping (with or without nicotine), tobacco. 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 Review of Systems Physical Exam Vitals and Measurements HR: 77 RR: 16 BP: 134/84 SpO2: 98% HT: 164 cm WT: 147 kg BMI: 54.7 Clinic Procedure Assessment/Plan Morbid obesity Preop testing 1. Class 3 severe obesity, BMI: 54.7 2. YO --compliant with CPAP use 3. Asthma --exercise induced --continue albuterol, montelukast --PFT/ABG to be completed with PCP 4. GERD --Significant controlled with medications --continue omeprazole 20mg daily --EGD completed 5. Cannabis Use -Instructed patient to discontinue use of cannabis products 5 days prior to procedure to eliminate risk for interactions with anesthesia at the time of surgery. -Discussed utilizing edible forms of cannabis rather than smoking postoperatively. Also discussed risks associated with utilizing cannabis following WLS including possibility of low weight loss, and weight regain following surgery if they should choose to continue. Discussed possible risk of marginal ulceration if smoking cannabis following gastric bypass. 6. Preop testing --completed EKG today in clinic--will send outside referral to cardiology d/t moderate intraventricular conduction delay PMH: OA, psudotumor cerebri IMAGING STUDIES/REVIEW OF OUTSIDE RECORDS: --EGD operative report personally interpreted as normal. Bariatric labs: (pt requests to get drawn at [facility] as she received medicaid ride) Ordered full bariatric lab panel including: CBC with Auto Differential Comprehensive Metabolic Panel Ferritin Level Folate Level Intact PTH Iron Level and TIBC Magnesium Level Phosphorus Level Copper, serum-[place] Vitamin B1 (Thiamin) Whole Blood-[place] Vitamin B12 Level Vitamin K1 level-[place] Vitamin A level-[place] Vitamin D Level Zinc Level-[place] TSH T4 A1c PENDING: PSYCH EVAL: in person with Dr. Thayer 10/06/24--completed today, note pending CARDIAC CLEARANCE with EKG: low risk, didn't completed with PCP. Completed EKG today in clinic, will send outside referral to cardiology PFT, ABG's: d/t asthma, YO --pt hadn't completed yet, she will complete locally with PCP as she lives [place] hours away FASTING lipid panel: to be completed locally as pt received ride here from medicaid COMPLETED: SURG CONSULT: 08/09/24 Dr. Ordoñez EGD: completed 09/09/24 Dietary counseling and surveillance -Food journalling: Encouraged patient to track and monitor nutritional intake -encouraged measurement of portion sizes, focusing on protein intake Exercise counseling -encouraged activity most days of the week, focusing on ability of what patient is capable of performing, working to increase, as able. -encouraged strength training activities to build and maintain lean body mass, as able -Weight management through education and weight checks at each visit. Encouraged patient to weigh at home once weekly and keep a journal to stay on track. Patient attended class or met individually with the dietitian where the following items were reviewed: food diaries, exercise logs and behavior modules were collected from month one. The dietitian worked on taking control of eating. Healthy habits are reviewed; mindless eating and portion control was discussed. The hunger scale was reviewed. This month's behavioral module is on self-esteem. Self-esteem was defined and methods to improve were discussed. New food diaries, exercise logs and learning modules were distributed. The patient will be encouraged to be evaluated by physical therapy to develop an exercise program. Follow-up: Patient will be seen next month to reassess and complete the MSWL requirements The visit required complex medical management through an ongoing care relationship with the patient. Problem List/Past Medical History Ongoing Chronic GERD Procedure/Surgical History Cholecystectomy Cyst removal L Knee Scope - ACL Repair, Meniscus Repair Medications albuterol(Ventolin HFA 90 mcg/inh inhalation aerosol) buPROPion(buPROPion 150 mg/24 hours (XL) oral tablet, extended release) cetirizine(All Day Allergy (Cetirizine) 10 mg oral tablet) diclofenac topical(diclofenac 1% topical gel) FLUoxetine(FLUoxetine 40 mg oral capsule) fluticasone nasal(fluticasone nasal 50 mcg/inh spray) galcanezumab(Emgality Prefilled Pen 120 mg/mL subcutaneous solution) Misc. Medication, 65 mg, Daily montelukast(montelukast 10 mg oral tablet) omeprazole(omeprazole 20 mg oral delayed release capsule) traZODone(traZODone 50 mg oral tablet) Allergies Latex Unlisted Substance - See Comment Social History Smoking Status Never smoker Alcohol - Denies Alcohol Use Substance Abuse - Denies Substance Abuse Family History Immunizations Health Maintenance Lab Results Diagnostic Results Visit Information Attending Physician: Mecca Yu [facility] Primary Care Physician: Binu Villeda MD Visit Date: 10/06/2024 10/06/2024 Op/Procedure Note Indication for Surge ry 33 yo F with hx of obesity undergoing surgical eval for RYGB Operation Esophagogastroduodenoscopy with gastric biopsies (antrum) Surgeon(s) Ananth Robertson MD Pile Driving Technician Alex Cantu MD, PGY1 Anesthesia MAC Estimated Blood Loss Minimal Findings Esophagus: No esophagitis or stricture. No hiatal hernia appreciated. regular GE junction was noted at 38cms Stomach: Antral biopsy obtained for H. Pylori. Remainder of the gastric mucosa including retroflexion was normal. Duodenum: Normal exam of mucosa to the 2nd part. Specimen(s) Gastric Antrum x2 Complications None Technique Patient was brought to the endoscopy room, connected to monitors and vital signs were obtained. Continuous nasal oxygen was provided. Patient was positioned in left lateral decubitus position. A timeout was performed identifying the patient and procedure. MAC anesthesia was administered. After adequate sedation was obtained, gastroscope was introduced into the oropharynx and gradually advanced to 2nd part of duodenum under direct vision without difficulty. Cold forceps biopsies of gastric antrum obtained. Scope was slowly withdrawn, carefully examining all mucosal surfaces. Plan: Routine f/u I was present in the room for the entire procedure. 09/09/2024 General Surgery Clinic Note Chief Complaint SOV 1 is [place] state lines History of Present Illness Visit type: Telehealth Medically supervised weight loss visit Patient location: At home Provider location: At bariatric clinic Consent: verbal consent for this telehealth visit was obtained from patient or guardian prior to beginning this encounter. Risks (tech failure, privacy and security, incomplete examination) and benefits (reduced exposure to infectious disease, convenience) of using a virtual platform were reviewed and addressed prior to beginning this encounter. Surgeon: Tiago -patient is interested in RYGB Patient denies any relevant or significant changes to their health history since last visit including new diagnoses, hospitalizations, ER visits, medication changes or procedures performed. Patient denies smoking or vaping (with or without nicotine), tobacco. Occasional Cannibis pens Currently following a diet: smaller portions Exercise: trying to exercise more daily (walking around the block) Review of Systems Physical Exam Vitals and Measurements HT: 164 cm WT: 141.81 kg BMI: 52.7 Clinic Procedure Assessment/Plan 1. Class 3 severe obesity, BMI: 52.7 2. YO --compliant with CPAP use 3. Asthma --exercise induced --managed by PCP 4. GERD --Significant controlled with medications --continue omeprazole 20mg and tums prn --EGD scheduled 5. Cannabis Use -Instructed patient to discontinue use of cannabis products 5 days prior to procedure to eliminate risk for interactions with anesthesia at the time of surgery. -Discussed utilizing edible forms of cannabis rather than smoking postoperatively. Also discussed risks associated with utilizing cannabis following WLS including possibility of low weight loss, and weight regain following surgery if they should choose to continue. Discussed possible risk of marginal ulceration if smoking cannabis following gastric bypass. PMH: OA, psudotumor cerebri --discussed diet/exercise, planning bariatric surgery for further treatment of obesity Plan: PENDING: PSYCH EVAL: in person with Dr. Thayer 10/06/24 CARDIAC CLEARANCE with EKG: low risk, complete with PCP --will bring printed results to next visit with myself PFT, ABG's: d/t asthma, YO --will bring printed results to next visit with myself FASTING lipid panel: to be completed with PCP FULL [facility] (minus lipid panel), including including A1C, TSH, free thyroxine to be ordered at SOV 2 EGD: scheduled 09/09/24 COMPLETED: SURG CONSULT: 08/09/24 Dr. Ordoñez Dietary counseling and surveillance -Food journalling: Encouraged patient to track and monitor nutritional intake -encouraged measurement of portion sizes, focusing on protein intake Exercise counseling -encouraged activity most days of the week, focusing on ability of what patient is capable of performing, working to increase, as able. -encouraged strength training activities to build and maintain lean body mass, as able I discussed the importance compliance with pre-op and post-operative visits with pt today including timing of visits after surgery for long-term success -Weight management through education and weight checks at each visit. Encouraged patient to weigh at home once weekly and keep a journal to stay on track. Patient attended class or met individually with the dietitian where the following items were reviewed: month one of supervised medical weight loss includes information on exercise, basic dietary planning and behavioral modification. The exercise module includes the recommendations from the [place] [employer], benefits of exercise and goal setting when it comes to physical activity. A balanced program is presented to patients that includes flexibility, strengthening and aerobic conditioning. The patient is taught how to gauge exertion (both the talk test and how to determine heart rate.) Non exercise activity thermogenesis is covered as well. Handouts are provided on stretching, strength band use. In addition a water exercise sheet, the [place] Activity status index and exercise log is provided. The dietary portion of this session provides basic dietary guidelines. Discussion topics include protein, fat, carbohydrate, fiber, meal planning, snacking, low fat foods, caffeine, fluid intake, sugar substitutes, and food diaries. The focus of the behavior modification module this month is on personal accountability. This includes goal setting, tool development and how to set realistic expectations. Written assignments were given to the patient. Follow-up: Patient will be seen next month to reassess and complete the MSWL requirements The visit required complex medical management through an ongoing care relationship with the patient. Problem List/Past Medical History Procedure/Surgical History Medications albuterol(Ventolin HFA 90 mcg/inh inhalation aerosol) buPROPion(buPROPion 150 mg/24 hours (XL) oral tablet, extended release) cetirizine(All Day Allergy (Cetirizine) 10 mg oral tablet) diclofenac topical(diclofenac 1% topical gel) FLUoxetine(FLUoxetine 40 mg oral capsule) fluticasone nasal(fluticasone nasal 50 mcg/inh spray) galcanezumab(Emgality Prefilled Pen 120 mg/mL subcutaneous solution) Misc. 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 Patient has suffered from obesity for many years and has tried multiple diets without success. Because of lack of success with diet and exercise patient is now interested in discussing other options including weight loss surgery. Patient has developed the listed comorbidities related to obesity. Patient has now reached a BMI of 53.4. Because of the lack of success of diet and exercise over the years, patient has decided to be evaluated for weight loss surgery. Patient's obesity is moderate in severity. It is life limiting. Family h/o DVT/PE: No Personal history of DVT/PE: No Dysphagia: No GERD or reflux: Yes-Significant controlled with medications, on PPI qDaily and Tums PRN Preoperative endoscopy completed: No Smoking Hx: No NSAID use: Yes PRN raely Abdominal operations: laparoscopic cholecystectomy (2017) Associated comorbidities include: OA, YO Problems: asthma, pseudotumor cerebri Review of Systems Review of systems performed. Pertinent positives noted in HPI. Physical Exam Vitals and Measurements HR: 73 RR: 14 BP: 147/87 SpO2: 99% HT: 164 cm WT: 143.7 kg BMI: 53.4 Constitutional: Well nourished, NAD, obese HENT: Head normocephalic, atraumatic, no evidence of abnormalities. No gross nasal drainage. Mouth: oral mucosa pink and moist Neck: Soft supple without masses. Trachea midline. No thyromegaly Eyes: PEERL, EOM-intact, sclera clear. Conjunctivae wnl. No lid abrasions/lacerations Respiratory: No use of accessory muscles. Good respiratory effort Cardiovascular: Normal peripheral perfusion. no significant lower extremity edema. Abdomen: Soft without distention, masses, organomegaly, tenderness, rebound, guarding, rigidity. Skin: warm and dry. No obvious exposed lesions. Skin turgor wnl Psychiatric: Mood and affect WNL. Judgement and insight intact Clinic Procedure Assessment/Plan Patient presents today for evaluation for weight loss surgery. Patent has class IV obesity, severe, and patient's BMI is now 53.4. The patient has developed the above listed comorbidities associated with obesity. Patient is interested in pursuing weight loss surgery. Patient has had or will have discussions with our dietitian, a behavioral health specialist, and has completed or will complete the appropriate preoperative insurance mandated diet program. We have had the discussion with the patient through our office of the possible alternatives. Patient is interested in LRYGB. After my review of patient's records and discussion with the patient I feel that the patient is a potential candidate for the procedure based on the completion of the below plan. We will proceed with the described plan as well as the below mentioned additions to the plan then make final decision for surgery. Discussed with pt that she would not be able to use NSAIDs for the rest of her life if a bypass is pursued to the risk marginal ulcers at the anastomosis. Pt stated that she understood. The risks of laparoscopic Benjamin-en-Y divided gastric bypass were discussed at length with the patient. These include but are not limited to the risk of bleeding, infection, injury to adjacent organs, staple line leak, excessive or inadequate weight loss, late weight regain, dysphagia, dumping syndrome, chronic hypoglycemia, internal hernia, intussusception, small bowel obstruction, development of gallstones and nutritional deficiencies. Alternative therapies to laparoscopic Benjamin-en-Y divided gastric bypass were also discussed and include medically supervised weight loss, laparoscopic vertical sleeve gastrectomy, laparoscopic duodenal switch and laparoscopic ANTONIA-S. The benefits of laparoscopic Benjamin-en-Y divided gastric bypass include potential significant improvement in morbid obesity with improvements or resolution of comorbid conditions. Preoperative Endoscopy: Yes Cardiac clearance: Yes per insurance Pulmonary clearance: Yes for asthma Other clearances:No, request records from recent sleep study diagnosing her with obstructive sleep apnea preoperative dietary classes per insurance preoperative behavioral health evaluation Associated comorbidities affecting patient's management: OA, YO Problems: asthma, pseudotumor cerebri The visit required complex medical management through an ongoing care relationship with the patient. I, Pauly Shabazz, am working as a scribe for and in the presence of Dr. Ki Ordoñez at 08/09/24 12:04:02. Attestation by Ki Ordoñez MD on August 09, 2024 12:07 I have reviewed the scribe's note documented above. This was scribed in my presence. I have reviewed for accuracy and it reflects my service for the date of service. Problem List/Past Medical History Procedure/Surgical History Medications albuterol(Ventolin HFA 90 mcg/inh inhalation aerosol) buPROPion(buPROPion 150 mg/24 hours (XL) oral tablet, extended release) cetirizine(All Day Allergy (Cetirizine) 10 mg oral tablet) diclofenac topical(diclofenac 1% topical gel) FLUoxetine(FLUoxetine 40 mg oral capsule) fluticasone nasal(fluticasone nasal 50 mcg/inh spray) galcanezumab(Emgality Prefilled Pen 120 mg/mL subcutaneous solution) Misc. Medication, 65 mg, Daily montelukast(montelukast 10 mg oral tablet) omeprazole(omeprazole 20 mg oral delayed release capsule) traZODone(traZODone 50 mg oral tablet) Allergies Latex Unlisted Substance - See Comment Social History Smoking Status Never smoker Family History Immunizations Health Maintenance Lab Results Diagnostic Results Visit Information Attending Physician: Ki Ordoñez MD Visit Date: 08/09/2024 08/09/2024 Discharge Summaries Results Value Date Source Discharge Summary Date of Admission Date of Discharge 01/27/2025 Reason for Hospitalization morbid obesity Hospital Course The patient was admitted the day of surgery for robot-assisted benjamin-en-Y gastric bypass. The surgery proceeded well without any complications. Postoperatively the patient was admitted to the general floor. Pain and nausea were controlled with multimodal therapy. The following day, the patient was able to ambulate the hallway, drink 4-6 oz of fluid per hour, void spontaneously, and have adequately controlled pain and nausea with oral medications. They were weaned down to their baseline oxygen requirement of room air. They were deemed stable for discharge with 1 week follow up in clinic. They will continue on a Stage I bariatric diet. Prescriptions were given for:Zofran 4 mg PO #16 q4h PRN for nausea, Miralax 17g packets daily #2, Celebrex 200 mg PO BID #28, Pantoprazole 40 mg PO daily #90. The patient was also instructed on fiber supplement until return of bowel function and counseled on bariatric multivitamin use. Discharge Diagnoses Morbid obesity Orders: buPROPion(buPROPion 24 hour extended release), 150 mg= 1 Tablet(s), Oral, Daily traZODone, 50 mg= 1 Tablet(s), Oral, At Bedtime Other Diagnoses Ongoing BMI 50.0-59.9, adult Chronic GERD Severe obesity Operations and Procedures EGD (09/09/2024) 01/26: robotic RNYGB Consultants none Pending Labs none Discharge Disposition Home Medications New, Changed, or Refilled Medications celecoxib (CeleBREX 200 mg) 200 mg, 1 capsule(s), Oral, bid, PRN: as needed for pain, 28 capsule(s), 0 Refill(s) ondansetron (ondansetron 4 mg) 4 mg, 1 Tablet(s), Oral, q8h, PRN: Nausea, 16 Tablet(s), 0 Refill(s) pantoprazole (Protonix 40 mg oral delayed release tablet) 40 mg, 1 Tablet(s), Oral, Daily, 90 Tablet(s), 0 Refill(s) polyethylene glycol 3350 (MiraLax oral powder for reconsti 17 g, Oral, Daily, 14 Each, 0 Refill(s) Medications to be Continued FLUoxetine (FLUoxetine 40 mg) 80 mg, 2 capsule(s), Oral, qAM, 0 Refill(s) albuterol (Ventolin HFA 90 mcg/inh inhalation aerosol) 2 Inhalation, Inhalation, q6h, PRN: as needed for shortness of breath or wheezing, 0 Refill(s) buPROPion (buPROPion 150 mg/24 hours (XL) , extended relea 150 mg, 1 Tablet(s), Oral, qAM, 0 Refill(s) calcium-vitamin D (calcium (as carbonate)-vitamin D 600 mg 1 Tablet(s), Oral, bid cetirizine (All Day Allergy (Cetirizine) 10 mg) 10 mg, 1 Tablet(s), Oral, Daily, 0 Refill(s) cyanocobalamin (cyanocobalamin 5000 mcg , extended release 5,000 mcg, 1 Tablet(s), Oral, Daily diclofenac topical (diclofenac 1% topical gel) 1 Application, Topical, qid, PRN: as needed, 0 Refill(s) ergocalciferol (ergocalciferol 1.25 mg (50,000 intl units) 50,000 IntUnits, 1 capsule(s), Oral, qWed Sat, for 90 day(s), recheck vit D before refill, 24 capsule(s), 0 Refill(s) Instructions:recheck vit D before refill ferrous sulfate (ferrous sulfate 324 mg (65 mg elemental i 324 mg, 1 Tablet(s), Oral, Daily fluticasone nasal (fluticasone nasal 50 mcg/inh spray) 50 mcg, 1 [place], Each Nostril, Daily, 0 Refill(s) galcanezumab (Emgality Prefilled Pen 120 mg/mL subcutaneou 120 mg, Subcutaneous, [id number], 0 Refill(s) montelukast (montelukast 10 mg) 10 mg, 1 Tablet(s), Oral, Daily, 0 Refill(s) multivitamin with minerals (Bariatric Fusion Multivitamin 1 Tablet(s), Oral, Daily omeprazole (omeprazole 20 mg oral delayed release capsule) 20 mg, 1 capsule(s), Oral, Daily, 0 Refill(s) traZODone (traZODone 50 mg) 100 mg, 2 Tablet(s), Oral, At Bedtime, PRN: as needed, 0 Refill(s) Discontinued Medications None Physical Exam at Discharge Vitals and Measurements Constitutional: A&Ox3, Well nourished, NAD. HENT: Head normocephalic, atraumatic, no evidence of abnormalities. Mouth: oral mucosa pink and moist Neck: Soft supple without masses. Trachea midline. No thyromegaly Eyes: PEERL, EOM-intact, sclera clear. No lid abrasions/lacerations Respiratory: No use of accessory muscles. Good respiratory effort. No stridor or wheezing. Cardiovascular: RRR, extremities well perfused with no significant lower extremity edema. Abdomen: Soft without distention, masses, organomegaly. mild Tenderness present. incisions C/D/I. Skin: Warm and dry without obvious rashes. Psychiatric: Mood and affect WNL. Time Spent <30 min Follow Up Appointments Appointment Type When With Where Contact Information Status POP 01/31/2025 09:00 AM CDT Ki Ordoñez MD [facility] [address] [address] Confirmed PS2 01/31/2025 09:30 AM CDT Betty De Jesus RDN [facility] [address] [address] Confirmed Nursing/Other Orders Bariatric Diet Stage 1 PostOp Clear Liquids + Protein Beverage. 01/26/25 13:18:00 CDT Lunch 1115 to 1245 Dietary Daily, Instructions: Bariatric Diet Stage 1 PostOp Clear Liquid + Protein Beverage, Limit fluids to 4-6oz per hour, 01/26/25 13:18:00 CDT Intake and Output (I&O). 01/26/25 13:18:00 CDT, q8h Ambulate Patient. 01/26/25 13:18:00 CDT, As Indicated, PRN order?, Up ad kristina Leg Exercises with Vital Signs. 01/26/25 13:18:00 CDT, Continuous Order, Dorsiflexion and plantar flex both feet x 10 Attestation by Ki Ordoñez MD on January 27, 2025 14:48 I discussed the patient's care with the resident team. Appropriate modifications to note were made. I agree with note with the following additions/modifications: Patient underwent robotic Benjamin-en-Y gastric bypass for management of class III obesity on 01/26/2025. She is medically appropriate for discharge on 01/27/2025. 01/27/2025 History and Physicals Results Value Date Source History and Physical Patient seen and ex amined in the preoperative area. A full history and physical exam were performed and documented by Dr. Ordoñez on 12/03/24. Patient denies any changes in her medical history or clinical condition since that time. Plan to proceed with Laparoscopic Benjamin-en-Y gastric bypass, possible hiatal hernia repair, other indicated procedures. robot assisted as previously documented. Attestation by Ki Ordoñez MD on January 26, 2025 06:48 I personally saw and evaluated the patient on 01/26/2025. I independently performed the critical/vizcaino portions of the Evaluation and Management service and discussed the management with the resident team that is responsible for the document above. I agree with everything documented above with the following exceptions/additions: The following risks of Benjamin-en-Y gastric bypass were discussed with patient and patient's questions answered: , enteral leak, stricture or marginal ulcer, DVT/PE, hemorrhage, bowel obstructions, damage to organs, infection, malnutrition, vitamin deficiency necessitating life long use of vitamin supplementation, internal hernias, need for reoperation, requirement to be off NSAIDs for life, possibility for regaining weight or losing inadequate weight, etc. - To OR for robotic benjamin-en-Y gastric bypass. - Admit postoperatively. 01/26/2025 History and Physical HPI: Afua is a 33-year-old female who presents today for preoperative EGD for planned Benjamin-en-Y gastric bypass and for history GERD with persistent refulux requiring PPI. Patient has been n.p.o. since midnight. Patient denies any fevers or chills. ROS: 14 point ROS was conducted and was negative except for that mentioned in the HPI. PMH: reviewed PSH: reviewed FamHx: reviewed PE: Vitals reviewed General: Normal appearance, Normal voice and communication, Well developed/nourished. Head/Face: Normal appearance, Normal facial strength. Eyes: Normal ocular movement, Normal gaze. Nose: Normal external appearance. Oral: Normal lips. Neck: Normal appearance. Respiratory: Normal effort. Neuro/Psych: Oriented to person place and time, Normal mood and affect. A/P: 1. Preoperative EGD for planned Benjamin-en-Y gastric bypass 2. GERD Proceed to OR as planned for EGD. 09/09/2024 Vital Signs Vital Sign Value Date Comments Source JOYA Rao 2.42 10/06/2024 18:08:00 [facility] Height (cm) 164 cm 10/06/2024 18:08:00 [facility] BMI 54.7 kg/m2 10/06/2024 18:08:00 [facility] Respiratory Rate 16 breaths/min 10/06/2024 18:08:00 [facility] SBP NIBP 134 mm[Hg] 10/06/2024 18:08:00 [facility] DBP NIBP 84 mm[Hg] 10/06/2024 18:08:00 [facility] Weight (kg) 147 kg 10/06/2024 18:08:00 [facility] Heart Rate 77 bpm 10/06/2024 18:08:00 [facility] SpO2 98 % 10/06/2024 18:08:00 [facility] SpO2 97 % 09/09/2024 17:22:02 [facility] Heart Rate 69 bpm 09/09/2024 17:22:02 [facility] SBP NIBP 148 mm[Hg] 09/09/2024 17:20:00 [facility] DBP NIBP 99 mm[Hg] 09/09/2024 17:20:00 [facility] Mean NIBP 112 mm[Hg] 09/09/2024 17:20:00 [facility] Respiratory Rate 16 breaths/min 09/09/2024 17:20:00 [facility] SpO2 96 % 09/09/2024 17:19:39 [facility] Heart Rate 67 bpm 09/09/2024 17:19:39 [facility] Mean NIBP 98 mm[Hg] 09/09/2024 17:10:01 [facility] SBP NIBP 136 mm[Hg] 09/09/2024 17:10:01 [facility] DBP NIBP 83 mm[Hg] 09/09/2024 17:10:01 [facility] Respiratory Rate 16 breaths/min 09/09/2024 17:10:00 [facility] SpO2 99 % 09/09/2024 17:03:02 [facility] Heart Rate 93 bpm 09/09/2024 17:02:57 [facility] Temperature (Celsius) 36.2 Jeanette 09/09/2024 17:02:00 [facility] Respiratory Rate 16 breaths/min 09/09/2024 17:02:00 [facility] Respiratory Rate 18 breaths/min 09/09/2024 16:06:00 [facility] SBP NIBP 154 mm[Hg] 09/09/2024 16:06:00 [facility] DBP NIBP 70 mm[Hg] 09/09/2024 16:06:00 [facility] Temperature (Celsius) 36.1 Jeanette 09/09/2024 16:06:00 [facility] Heart Rate 91 bpm 09/09/2024 16:06:00 [facility] SpO2 99 % 09/09/2024 16:06:00 [facility] Weight (kg) 148.6 kg 09/09/2024 16:06:00 [facility] Encounters Location Location Details Encounter Type Encounter Number Reason For Visit Attending Provider ADM Date DC Date Status Source [facility] [id number] Ki Ordoñez 08/09 17:07 :43 08/10 05:59 :59 [facility] [id number] Mecca Yu 08/25 13:55 :22 08/26 05:59 :59 [facility] Virtual Care [id number] Ki Ordoñez 08/25 13:58 :26 08/26 05:59 :59 [facility] Nurse Phone Call Clinic [id number] Triston Bird 09/09 13:00 :53 09/10 05:59 :59 [facility] Outpatient Day Surgery [id number] Ananth Robertson 09/09 15:39 :11 09/10 05:59 :59 [facility] [id number] Afua Thayer 10/06 14:51 :05 10/07 04:59 :59 [facility] [id number] Ki Ordoñez 10/06 16:13 :31 10/07 04:59 :59 [facility] [id number] Mecca Yu 10/06 16:14 :01 10/07 04:59 :59 [facility] Non-Admit [id number] Mecca Yu 11/09 13:07 :56 11/10 04:59 :59 [facility] Non-Admit [id number] Ki Ordoñez 11/09 13:08 :51 11/10 04:59 :59 [facility] Virtual Care [id number] Ki Ordoñez 11/15 12:44 :26 11/16 04:59 :59 [facility] [id number] Mecca Yu 11/16 12:45 :05 11/17 04:59 :59 [facility] [id number] Mecca Yu 12/22 12:45 :56 12/23 04:59 :59 [facility] [id number] Ki Ordoñez 01/03 16:19 :15 01/04 04:59 :59 [facility] [id number] Ki Ordoñez 01/03 16:20 :29 01/04 04:59 :59 [facility] Inpatient [id number] Nolan Campo 01/26 09:45 :10 01/27 18:28 :00 [facility] Nurse Phone Call Clinic [id number] Triston Bird 01/26 14:15 :26 01/27 04:59 :59 [facility] [id number] Ik Ordoñez 01/31 13:53 :24 02/01 04:59 :59 [facility] [id number] Ki Tiago 01/31 13:55 :55 02/01 04:59 :59 [facility] Procedures Procedure Code Date Perfomer Comments Source EGD 09/09/2024 06:00:00 [facility] Cholecystectomy [facility] Cyst removal [facility] L Knee Scope - ACL Repair, Meniscus Repair [facility] Plan of Care Plan of Care Date Source No data available for this section 02/01/2025 [facility] Social History Social History Date Source No data available for this section 02/01/2025 [facility] No data available for this section 01/27/2025 [facility] No data available for this section 01/27/2025 [id number] No data available for this section 01/04/2025 [facility] No data available for this section 12/23/2024 [facility] No data available for this section 11/17/2024 [facility] No data available for this section 11/16/2024 [facility] No data available for this section 11/10/2024 [facility] No data available for this section 10/07/2024 [facility] No data available for this section 09/10/2024 [facility] No data available for this section 08/26/2024 [facility] No data available for this section 08/10/2024 [facility]
--- OUTSIDE RECORDS SUMMARY | 2025-02-24 15:30 | XMS_ITS | Patient Health Record ---
Author Organization [facility] Address [address] [place], [place] [id number] Care Team Providers Care Bar Steward Name Role Phone LORRAINE MCKEON Unavailable [phone] CALEB Cavazos Unavailable Unavailable Reason For Referral No Information Plan Of Treatment No Information Insurance Providers Payer Name Payer Address Payer Phone Subscriber Number Group Number Insured Name Patient Relationship to Insured Coverage Start Date Coverage End Date [facility] [address] [place] [phone] [id number] AFUA BRYANT Self - patient is the insured
--- OUTSIDE RECORDS SUMMARY | 2025-02-24 15:30 | XMS_ITS | Patient Health Record ---
Author Organization [facility] Address [address] [place] [address] Support Name Relationship Address Phone Afshan Ratliff Guarantor Unknown Reason For Referral No Information Medications Medication SIG (Take, Route, Frequency, Duration) Notes Start Date End Date Status Flonase Allergy Relief 50 MCG/ACT Nasal Active Tylenol oral *please review f or potential update for e-prescription and drug interaction check* Active Plan Of Treatment No Information Insurance Providers Payer Name Payer Address Payer Phone Subscriber Number Group Number Insured Name Patient Relationship to Insured Coverage Start Date Coverage End Date [facility] Community Plan [address] [address] [place] [phone] [id number] [facility] Afshan Ratliff Self - patient is the insured [employer] [place] [address] [place] [phone] [id number] Afshan Ratliff Self - patient is the insured 1 Medical (General) History Surgical History Surgery Date(Month/Year) Gallbladder Removal; 2019-01-04 Cyst Removal; 2019-01-04 Knee Sugery; 2019-01-04
--- OUTSIDE RECORDS SUMMARY | 2025-02-24 15:30 | XMS_ITS | Clinical Summary ---
Author Organization [facility] Address [address] [place] [address] Care Team Providers [facility] Supervisor Name Role Phone Unavailable Primary Care Provider Unavailabl e Social History Tobacco Use Types Packs/Day Years Used Date Smoking Tobacco: Never Assessed Comments Unknown Sex and Gender Information Value Date Recorded Sex Assigned at Not on file Legal Sex Female 12:12 PM [employer]IC THEORY TE[employer] Gender Identity Not on file Sexual Orientation Not on file Plan of Treatment Upcoming Encounters Date Type Department Care Team ([facility] Contact Info) Description 04/20/2025 10:30 AM CDT Office Visit [facility] [address] [address] Debbie Bravo MD [address] [facility] [address] [place] [address] Health Maintenance Due Date Last Done Comments HPV VACCINES (1 - 3-dose series) 2004 DTAP/TDAP/TD VACCINES (1 - Tdap) 2008 HEPATITIS B VACCINES (1 of 3 - 19+ 3-dose series) 09/11 HPV/Cotest (21-29) 2010 CERVICAL CANCER SCREENING 10/01/2019 HPV/Cotest (30-65) 10/01/2019 PAP SMEAR 10/01/2019 INFLUENZA VACCINE (#1) 2025 Insurance #[id number] [place] [address] [facility] MEDICAID
[2025-02-24 15:32] VITALS: BP 125/74; PULSE 75; RESP 16; TEMP 37.1; O2SAT 99
[2025-02-24 16:02] LABS: Hematocrit 37.6 % (36-47); Hemoglobin 12.50 g/dL (11.27-16.99); Mean Corpuscular HGB Conc 33.2 g/dL (30-55); Mean Corpuscular Hemoglobin 28.6 pg (27-33); Mean Corpuscular Volume 86.0 fl (85-98); Nucleated Red Blood Cells % 0 %; Platelet Count 251 10^3/cmm (157-399); Red Blood Count 4.37 10^6/uL (3.85-5.65); White Blood Count 6.25 10^3/uL (3.29-11.43)
[2025-02-24 16:19] LABS: Alanine Aminotransferase 12 U/L (0-33); Albumin Level 4.2 g/dL (3.5-5.2); Alkaline Phosphatase 66 U/L (35-105); Anion Gap 21.0 (5-19); Aspartate Amino Transferase 16 U/L (0-32); Blood Urea Nitrogen 14 mg/dL (6-20); Calcium 9.4 mg/dL (8.5-10.5); Carbon Dioxide 18 mmol/L (22-29); Chloride 103 mmol/L (98-107); Creatinine Clr Calc Pharmacy 172.7616; Globulin 3.7 g/dL (1.3-4.6); Glucose 86 mg/dL (65-115); Lipase 32 U/L (13-60); Osmolality Calculated 286 mOsm/kg (285-295); Potassium 4.0 mmol/L (3.5-5.1); Sodium 138 mmol/L (136-145); Total Protein 7.9 g/dL (6.6-8.7)
[2025-02-24 16:21] LABS: HCG, Serum Qual Negative (Negative)
--- NOTE | 2025-02-24 17:46 | W.ED.ABDPA2 ---
Documented by User: Hernesto Jackson DO 02/25/25 17:54 HPI - Abdominal Pain General: Chief Complaint: Abdominal Pain Stated Complaint: dizzy weak N/V Upper ABD pain Time Seen by Provider: 02/24/25 17:41 History of Present Illness: 34-year-old female presents emergency room complaining of epigastric discomfort and nausea. 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 She has had some loose stools with this. She denies any medic easier hematemesis or coffee-ground emesis has not actually been able to throw up but she feels like she does need to. She has several episodes of dry heaves. Associated Symptoms: Denies chills, dysuria and fever(s) Related Data Home Medications ?Medication ?Instructions ?Recorded ?Confirmed fluticasone propionate 50 1 spray intranasal QAM 06/09/22 02/09/25 mcg/actuation nasal spray,suspension (Flonase Allergy Relief) ferrous sulfate 325 mg (65 mg 325 mg PO DAILY 06/03/24 02/09/25 iron) tablet (Feosol) montelukast 10 mg tablet mg PO 08/11/24 02/09/25 cetirizine 10 mg tablet mg PO 11/16/24 02/09/25 cholecalciferol (vitamin D3) 125 125 mcg PO .Wed. & Sat. 02/09/25 02/09/25 mcg (5,000 unit) capsule sxudflfr-ytjxrous-ryjs 45 mg-folic cap PO DAILY 02/09/25 02/09/25 acid 800 mcg-vit K 120 mcg capsule (Bariatric Multivitamins) pantoprazole 40 mg tablet,delayed 40 mg PO QAM 02/09/25 02/09/25 release polyethylene glycol 3350 17 4 g PO BID PRN 02/09/25 02/09/25 gram/dose oral powder (Miralax) Previous Rx's ?Medication ?Instructions ?Recorded albuterol sulfate 90 mcg/actuation 2 inh inhalation Q4H PRN shortness 07/06/22 aerosol inhaler of breath or wheezing #8.5 grams bupropion HCl 150 mg 24 hr tablet, 150 mg PO QAM #30 tabs 02/09/25 extended release (Wellbutrin XL) fluoxetine 40 mg capsule 80 mg (2 x 40 mg) PO QAM #60 caps 02/09/25 trazodone 50 mg tablet 100 mg (2 x 50 mg) PO .HS PRN 02/09/25 insomnia #60 tabs galcanezumab-gnlm 120 mg/mL See Rx Instructions .Route 02/13/25 subcutaneous pen injector .COMPLEX #1 mL (Emgality Pen) Allergies Allergy/AdvReac Type Severity Reaction Status Date / Time Latex, Natural Rubber Allergy Intermediate Burn & Verified 02/09/25 10:24 itching. soap Allergy ALGY-Redness Verified 02/24/25 14:15 of Skin Review of Systems Const: Denies: fever(s) or chills Card: Denies: chest pain Resp: Denies: dyspnea GI: Denies: abdominal pain : Denies: dysuria, urinary frequency or urinary urgency Musc: Denies: neck pain or back pain Skin/Breast: Denies: rash PFSH ED PFSH: Medical History (Updated 02/24/25 @ 20:20 by Nitish Croft DO) Psychiatric care Family History Grandmother Hypertension High cholesterol Other Cancer Psychiatric illness Denies family history of Colon cancer Ovarian cancer Diabetes Heart disease Uterine cancer Thyroid disease Stroke Social History Smoking and tobacco/nicotine status: never used tobacco/nicotine Second hand smoke exposure: Yes Alcohol intake: current Alcohol intake frequency: holidays/special occasions only Alcohol type: beer, wine and hard liquor Substance/Drug Use: current Substance/Drug use frequency: Special occassions/opportunity only Adopted: No Caregiver/support person: No Lives independently: Yes Household members: children Housing: Apartment Marital status: Single Number of children: 1 Highest education level completed: High School Graduate service: No Current occupational status: disabled Pets and animals: Yes Pets & animals: dog(s) Leisure activites: clubs, art, music, games and reading Sexually active: Yes Do you think of yourself as: Straight/Heterosexual Current gender identity: Female La/Shinto: Orthodoxy Special la needs: No Agree to transfusion: Yes Female Reproductive History: Para: 1 Spontaneous abortions: Yes (X2) Physical Exam Const: COMMON NORMALS: no acute distress GENERAL APPEARANCE: cooperative and comfortable ORIENTATION/CONSCIOUSNESS: Yes awake, Yes oriented to person, Yes oriented to place and Yes oriented to time HENMT: COMMON NORMALS: normocephalic, atraumatic and hearing grossly normal bilaterally HEAD & SCALP: normocephalic and atraumatic Resp: COMMON NORMALS: normal respiratory effort, No retractions, No use of accessory muscles and clear to auscultation bilaterally AUSCULTATION: clear to auscultation bilaterally Cardio: COMMON NORMALS: regular rate, regular rhythm and No murmurs present (Cardio) RATE: regular rate RHYTHM: regular rhythm GI: COMMON NORMALS: Soft to palpation and No hepatosplenomegaly present AUSCULTATION: Yes normoactive bowel sounds PALPATION: Yes Soft to palpation, No Tenderness to palpation present (GI), No Guarding due to palpation present (GI) and Yes No hepatosplenomegaly present Extremity: COMMON NORMALS: normal to inspection, capillary refill normal, no clubbing, cyanosis or edema, no calf tenderness and no pedal edema Neuro: SENSORIUM/ORIENTATION: Yes oriented to person, Yes oriented to place and Yes oriented to time Skin: COMMON NORMALS: no rashes or lesions noted GENERAL SKIN EXAM: no rashes or lesions noted Course Vital Signs: Vital signs: Vital Signs Temperature 98.7 F 02/24/25 15:32 Pulse Rate 59 L 02/24/25 20:39 Respiratory Rate 16 02/24/25 15:32 Blood Pressure 121/74 02/24/25 20:39 Pulse Oximetry 100 02/24/25 20:39 Oxygen Delivery Me thod Room Air 02/24/25 15:32 MDM - Abdominal Pain Medical Decision Making Care signed out to Dr. Croft at change of shift. See final notes for diagnosis and disposition. 34-year-old female checked out to me at shift change by the previous physician. She had been experiencing pain and nausea, especially after eating after Roverto-en-Y gastric bypass. She states that it seems to be worse after trying to take pantoprazole in the morning. Her CBC is normal. Her BMP shows bicarb level of 18 otherwise normal. She has 2+ ketones in her urine, she received some fluids for this. Her urinalysis reveals 1+ leukocyte esterase but no significant whites in her urine. Her lipase is normal at 32. Her CT appears nonacute. She will hold her pantoprazole over the weekend and see if her symptoms improved. Lab Data 02/24/25 15:52 02/24/25 15:52 Labs/Radiology: Radiology Impressions Abdomen/Pelvis CT 02/24/25 17:47 IMPRESSION: No acute findings. Laboratory Results WBC 6.25 10^3/uL (3.29-11.43) 02/24/25 15:52 RBC 4.37 10^6/uL (3.85-5.65) 02/24/25 15:52 Hgb 12.50 g/dL (11.27-16.99) 02/24/25 15:52 Hct 37.6 % (36-47) 02/24/25 15:52 MCV 86.0 fl (85-98) 02/24/25 15: MCH 28.6 pg (27-33) 02/24/25 15: MCHC 33.2 g/dL (30-55) 02/24/25 15:52 RDW 15.2 % (12.1-15.1) H 02/24/25 15:52 Plt Count 251 10^3/cmm (157-399) 02/24/25 15:52 MPV 11.8 fL (7.4-10.4) H 02/24/25 15:52 Neut % (Auto) 48.3 % 02/24/25 15:52 Lymph % (Auto) 41.0 % 02/24/25 15:52 [place] % (Auto) 5.9 % 02/24/25 15:52 Eos % (Auto) 4.0 % 02/24/25: Baso % (Auto) 0.6 % 02/24/25:52 Neut # (Auto) 3.02 10^3/uL (1.8-7.7) 02/24/25 15:52 Lymph # (Auto) 2.6 10^3/uL (0.8-4.8) 02/24/25 15:52 [place] # (Auto) 0.4 10^3/uL (0.2-0.9) 02/24/25 15:52 Eos # (Auto) 0.3 10^3/uL (0.0-0.8) 02/24/25 15:52 Baso # (Auto) 0.0 10^3/uL (0.0-0.1) 02/24/25 15:52 Nucleated RBC % (auto) 0 % 02/24/25 15:52 Nucleated RBCs # 0.0 /100WBC 02/24/25 15:52 Sodium 138 mmol/L (136-145) 02/24/25 15:52 Potassium 4.0 mmol/L (3.5-5.1) 02/24/25 15:52 Chloride 103 mmol/L (98-107) 02/24/25 15:52 Carbon Dioxide 18 mmol/L (22-29) L 02/24/25 15:52 Anion Gap 21.0 (5-19) H 02/24/25 15:52 BUN 14 mg/dL (6-20) 02/24/25 15:52 Creatinine 0.6 mg/dL (0.5-0.9) 02/24/25 15:52 GFR Calculation 113.8 mL/min (90-130) 02/24/25 15:52 Glucose 86 mg/dL (65-115) 02/24/25 15:52 Calculated Osmolality 286 mOsm/kg (285-295) 02/24/25 15:52 Calcium 9.4 mg/dL (8.5-10.5) 02/24/25 15:52 Total Bilirubin 0.6 mg/dL (0.15-1.2) 02/24/25 15:52 AST 16 U/L (0-32) 02/24/25 15:52 ALT 12 U/L (0-33) 02/24/25 15:52 Alkaline Phosphatase 66 U/L (35-105) 02/24/25 15:52 Total Protein 7.9 g/dL (6.6-8.7) 02/24/25 15:52 Albumin 4.2 g/dL (3.5-5.2) 02/24/25 15:52 Globulin 3.7 g/dL (1.3-4.6) 02/24/25 15:52 Lipase 32 U/L (13-60) 02/24/25 15:52 HCG, Qual Negative (Negative) 02/24/25 15:52 Urine Color Dark yellow (Yellow) A 02/24/25 18:08 Urine Appearance Cloudy (CLEAR) A 02/24/25 18:08 Urine pH 5.0 (5-7) 02/24/25 18:08 Ur Specific Winner 1.031 (1.005-1.030) H 02/24/25 18:08 Urine Protein Trace (Negative) A 02/24/25 18:08 Urine Glucose (UA) Negative (Normal) 02/24/25 18:08 Urine Ketones 2+ (Negative) H 02/24/25 18:08 Urine Blood Trace (Negative) A 02/24/25 18:08 Urine Nitrate Negative (Negative) 02/24/25 18:08 Urine Bilirubin 1+ (Negative) H 02/24/25 18:08 Urine Urobilinogen 1.0 mg/dL (Negative) 02/24/25 18:08 Ur Leukocyte Esterase 1+ (Negative) A 02/24/25 18:08 Urine RBC 0-4 /hpf (0-2) H 02/24/25 18:08 Urine WBC 0-5 /hpf (0-5) 02/24/25 18:08 Ur Squamous Epith Cells 5-10 /hpf (0-5) H 02/24/25 18:08 Calcium Oxalate Crystal 10-15 /hpf H 02/24/25 18:08 Amorphous Sediment Not Reportable 02/24/25 18:08 Urine Bacteria Mod /hpf (NONE) 02/24/25 18:08 Urine Mucus 3+ /hpf 02/24/25 18:08 Discharge Plan Discharge Patient Disposition: Home Clinical Impression: Abdominal pain Condition: Stable Prescriptions: No Action fluticasone propionate [Flonase Allergy Relief] 50 mcg/actuation spray,suspension 1 spray intranasal QAM Rx Instructions: administer into each nostril ferrous sulfate [Feosol] 325 mg (65 mg iron) tablet 325 mg PO DAILY cetirizine 10 mg tablet PO pantoprazole 40 mg tablet,delayed release (DR/EC) 40 mg PO QAM polyethylene glycol 3350 [Miralax] 17 gram/dose powder 4 g PO BID PRN cholecalciferol (vitamin D3) 125 mcg (5,000 unit) capsule 125 mcg PO .Wed. & Sat. Bariatric Multivitamins 45 mg iron- 800 mcg-120 mcg capsule PO DAILY fluoxetine 40 mg capsule 80 mg PO QAM Qty: 60 11RF bupropion HCl [Wellbutrin XL] 150 mg tablet extended release 24 hr 150 mg PO QAM Qty: 30 11RF trazodone 50 mg tablet 100 mg PO .HS PRN (Reason: insomnia) Qty: 60 11RF montelukast 10 mg tablet PO Emgality Pen 120 mg/mL pen injector See Rx Instructions .ROUTE .COMPLEX Qty: 1 6RF Dose Instruction: Inject 120mg UNDER THE SKIN monthly. Start one MONTH AFTER loading DOSE Rx Instructions: Inject 120mg UNDER THE SKIN monthly. Start one MONTH AFTER loading DOSE albuterol sulfate 90 mcg/actuation HFA aerosol inhaler 2 inh inhalation Q4H PRN (Reason: shortness of breath or wheezing) Qty: 8.5 0RF Discharge Orders: Discharge ED (Routine); Ordered 02/24/25 Ordered By: Nitish Croft Referrals: Binu Villeda MD [Primary Care Provider, Family Practice] Patient Instructions: Abdominal Pain (ED), Opioid Safety, Pain Management, Patient Portal & [facility] Instructions Activity Restrictions/Additional Instructions: Try holding your pantoprazole over the weekend to see if your symptoms improved. You should follow a liquid diet for the next 12 to 24 hours, then you may slowly add food back into your diet. Call your doctor on Thursday to let them know you were seen here with your symptoms. They may wish to see you earlier than your scheduled appointment, or have more advice. Return for any concerns. 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 Fwd Documented by User: Nitish Croft DO 02/24/25 22:54 HPI - Abdominal Pain General: Chief Complaint: Abdominal Pain Stated Complaint: dizzy weak N/V Upper ABD pain Time Seen by Provider: 02/24/25 17:41 Related Data Home Medications ?Medication ?Instructions ?Recorded ?Confirmed fluticasone propionate 50 1 spray intranasal QAM 06/09/22 02/09/25 mcg/actuation nasal spray,suspension (Flonase Allergy Relief) ferrous sulfate 325 mg (65 mg 325 mg PO DAILY 06/03/24 02/09/25 iron) tablet (Feosol) montelukast 10 mg tablet mg PO 08/11/24 02/09/25 cetirizine 10 mg tablet mg PO 11/16/24 02/09/25 cholecalciferol (vitamin D3) 125 125 mcg PO .Wed. & Sat. 02/09/25 02/09/25 mcg (5,000 unit) capsule jyhuksxl-rmqtukiq-xyym 45 mg-folic cap PO DAILY 02/09/25 02/09/25 acid 800 mcg-vit K 120 mcg capsule (Bariatric Multivitamins) pantoprazole 40 mg tablet,delayed 40 mg PO QAM 02/09/25 02/09/25 release polyethylene glycol 3350 17 4 g PO BID PRN 02/09/25 02/09/25 gram/dose oral powder (Miralax) Previous Rx's ?Medication ?Instructions ?Recorded albuterol sulfate 90 mcg/actuation 2 inh inhalation Q4H PRN shortness 07/06/22 aerosol inhaler of breath or wheezing #8.5 grams bupropion HCl 150 mg 24 hr tablet, 150 mg PO QAM #30 tabs 02/09/25 extended release (Wellbutrin XL) fluoxetine 40 mg capsule 80 mg (2 x 40 mg) PO QAM #60 caps 02/09/25 trazodone 50 mg tablet 100 mg (2 x 50 mg) PO .HS PRN 02/09/25 insomnia #60 tabs galcanezumab-gnlm 120 mg/mL See Rx Instructions .Route 02/13/25 subcutaneous pen injector .COMPLEX #1 mL (Emgality Pen) Allergies Allergy/AdvReac Type Severity Reaction Status Date / Time Latex, Natural Rubber Allergy Intermediate Burn & Verified 02/09/25 10:24 itching. soap Allergy ALGY-Redness Verified 02/24/25 14:15 of Skin PFSH ED PFSH: Medical History (Updated 02/24/25 @ 20:20 by Nitish Croft DO) Psychiatric care Family History Grandmother Hypertension High cholesterol Other Cancer Psychiatric illness Denies family history of Colon cancer Ovarian cancer Diabetes Heart disease Uterine cancer Thyroid disease Stroke Social History Smoking and tobacco/nicotine status: never used tobacco/nicotine Second hand smoke exposure: Yes Alcohol intake: current Alcohol intake frequency: holidays/special occasions only Alcohol type: beer, wine and hard liquor Substance/Drug Use: current Substance/Drug use frequency: Special occassions/opportunity only Adopted: No Caregiver/support person: No Lives independently: Yes Household members: children Housing: Apartment Marital status: Single Number of children: 1 Highest education level completed: High School Graduate service: No Current occupational status: disabled Pets and animals: Yes Pets & animals: dog(s) Leisure activites: clubs, art, music, games and reading Sexually active: Yes Do you think of yourself as: Straight/Heterosexual Current gender identity: Female La/Shinto: Orthodoxy Special la needs: No Agree to transfusion: Yes Course Vital Signs: Vital signs: Vital Signs Temperature 98.7 F 02/24/25 15:32 Pulse Rate 59 L 02/24/25 20:39 Respiratory Rate 16 02/24/25 15:32 Blood Pressure 121/74 02/24/25 20:39 Pulse Oximetry 100 02/24/25 20:39 Oxygen Delivery Me thod Room Air 02/24/25 15:32 MDM - Abdominal Pain Medical Decision Making 34-year-old female checked out to me at shift change by the previous physician. She had been experiencing pain and nausea, especially after eating after Roverto-en-Y gastric bypass. She states that it seems to be worse after trying to take pantoprazole in the morning. Her CBC is normal. Her BMP shows bicarb level of 18 otherwise normal. She has 2+ ketones in her urine, she received some fluids for this. Her urinalysis reveals 1+ leukocyte esterase but no significant whites in her urine. Her lipase is normal at 32. Her CT appears nonacute. She will hold her pantoprazole over the weekend and see if her symptoms improved. Lab Data 02/24/25 15:52 02/24/25 15:52 Labs/Radiology: Radiology Impressions Abdomen/Pelvis CT 02/24/25 17:47 IMPRESSION: No acute findings. Laboratory Results WBC 6.25 10^3/uL (3.29-11.43) 02/24/25 15:52 RBC 4.37 10^6/uL (3.85-5.65) 02/24/25 15:52 Hgb 12.50 g/dL (11.27-16.99) 02/24/25 15:52 Hct 37.6 % (36-47) 02/24/25 15:52 MCV 86.0 fl (85-98) 02/24/25 15:52 MCH 28.6 pg (27-33) 02/24/25 15:52 MCHC 33.2 g/dL (30-55) 02/24/25 15:52 RDW 15.2 % (12.1-15.1) H 02/24/25 15:52 Plt Count 251 10^3/cmm (157-399) 02/24/25 15:52 MPV 11.8 fL (7.4-10.4) H 02/24/25 15:52 Neut % (Auto) 48.3 % 02/24/25 15:52 Lymph % (Auto) 41.0 % 02/24/25:52 [place]bon % (Auto) 5.9 % 02/24/25 15: Eos % (Auto) 4.0 % 02/24/25 15: Baso % (Auto) 0.6 % 02/24/25: Neut # (Auto) 3.02 10^3/uL (1.8-7.7) 02/24/25 15:52 Lymph # (Auto) 2.6 10^3/uL (0.8-4.8) 02/24/25 15:52 [place] # (Auto) 0.4 10^3/uL (0.2-0.9) 02/24/25 15:52 Eos # (Auto) 0.3 10^3/uL (0.0-0.8) 02/24/25:52 Baso # (Auto) 0.0 10^3/uL (0.0-0.1) 02/24/25:52 Nucleated RBC % (auto) 0 % 02/24/25:52 Nucleated RBCs # 0.0 /100WBC 02/24/25 15:52 Sodium 138 mmol/L (136-145) 02/24/25 15:52 Potassium 4.0 mmol/L (3.5-5.1) 02/24/25 15:52 Chloride 103 mmol/L (98-107) 02/24/25 15:52 Carbon Dioxide 18 mmol/L (22-29) L 02/24/25 15:52 Anion Gap 21.0 (5-19) H 02/24/25 15:52 BUN 14 mg/dL (6-20) 02/24/25 15:52 Creatinine 0.6 mg/dL (0.5-0.9) 02/24/25 15:52 GFR Calculation 113.8 mL/min (90-130) 02/24/25 15:52 Glucose 86 mg/dL (65-115) 02/24/25 15:52 Calculated Osmolality 286 mOsm/kg (285-295) 02/24/25 15:52 Calcium 9.4 mg/dL (8.5-10.5) 02/24/25 15:52 Total Bilirubin 0.6 mg/dL (0.15-1.2) 02/24/25 15: AST 16 U/L (0-32) 02/24/25 15: ALT 12 U/L (0-33) 02/24/25 15: Alkaline Phosphatase 66 U/L (35-105) 02/24/25 15:52 Total Protein 7.9 g/dL (6.6-8.7) 02/24/25 15:52 Albumin 4.2 g/dL (3.5-5.2) 02/24/25 15:52 Globulin 3.7 g/dL (1.3-4.6) 02/24/25 15:52 Lipase 32 U/L (13-60) 02/24/25 15:52 HCG, Qual Negative (Negative) 02/24/25 15:52 Urine Color Dark yellow (Yellow) A 02/24/25 18:08 Urine Appearance Cloudy (CLEAR) A 02/24/25 18:08 Urine pH 5.0 (5-7) 02/24/25 18:08 Ur Specific Winner 1.031 (1.005-1.030) H 02/24/25 18:08 Urine Protein Trace (Negative) A 02/24/25 18:08 Urine Glucose (UA) Negative (Normal) 02/24/25 18:08 Urine Ketones 2+ (Negative) H 02/24/25 18:08 Urine Blood Trace (Negative) A 02/24/25 18:08 Urine Nitrate Negative (Negative) 02/24/25 18:08 Urine Bilirubin 1+ (Negative) H 02/24/25 18:08 Urine Urobilinogen 1.0 mg/dL (Negative) 02/24/25 18:08 Ur Leukocyte Esterase 1+ (Negative) A 02/24/25 18:08 Urine RBC 0-4 /hpf (0-2) H 02/24/25 18:08 Urine WBC 0-5 /hpf (0-5) 02/24/25 18:08 Ur Squamous Epith Cells 5-10 /hpf (0-5) H 02/24/25 18:08 Calcium Oxalate Crystal 10-15 /hpf H 02/24/25 18:08 Amorphous Sediment Not Reportable 02/24/25 18:08 Urine Bacteria Mod /hpf (NONE) 02/24/25 18:08 Urine Mucus 3+ /hpf 02/24/25 18:08 All radiology interpretation(s) finalized by discharge Discharge Plan Discharge Patient Disposition: Home Clinical Impression: Abdominal pain Condition: Stable Prescriptions: No Action fluticasone propionate [Flonase Allergy Relief] 50 mcg/actuation spray,suspension 1 spray intranasal QAM Rx Instructions: administer into each nostril ferrous sulfate [Feosol] 325 mg (65 mg iron) tablet 325 mg PO DAILY cetirizine 10 mg tablet PO pantoprazole 40 mg tablet,delayed release (DR/EC) 40 mg PO QAM polyethylene glycol 3350 [Miralax] 17 gram/dose powder 4 g PO BID PRN cholecalciferol (vitamin D3) 125 mcg (5,000 unit) capsule 125 mcg PO .Wed. & Sat. Bariatric Multivitamins 45 mg iron- 800 mcg-120 mcg capsule PO DAILY fluoxetine 40 mg capsule 80 mg PO QAM Qty: 60 11RF bupropion HCl [Wellbutrin XL] 150 mg tablet extended release 24 hr 150 mg PO QAM Qty: 30 11RF trazodone 50 mg tablet 100 mg PO .HS PRN (Reason: insomnia) Qty: 60 11RF montelukast 10 mg tablet PO Emgality Pen 120 mg/mL pen injector See Rx Instructions .ROUTE .COMPLEX Qty: 1 6RF Dose Instruction: Inject 120mg UNDER THE SKIN monthly. Start one MONTH AFTER loading DOSE Rx Instructions: Inject 120mg UNDER THE SKIN monthly. Start one MONTH AFTER loading DOSE albuterol sulfate 90 mcg/actuation HFA aerosol inhaler 2 inh inhalation Q4H PRN (Reason: shortness of breath or wheezing) Qty: 8.5 0RF Discharge Orders: Discharge ED (Routine); Ordered 02/24/25 Ordered By: Nitish Croft Referrals: Binu Villeda MD [Primary Care Provider, Family Practice] Patient Instructions: Abdominal Pain (ED), Opioid Safety, Pain Management, Patient Portal & [facility] Instructions Activity Restrictions/Additional Instructions: Try holding your pantoprazole over the weekend to see if your symptoms improved. You should follow a liquid diet for the next 12 to 24 hours, then you may slowly add food back into your diet. Call your doctor on Thursday to let them know you were seen here with your symptoms. They may wish to see you earlier than your scheduled appointment, or have more advice. Return for any concerns. Print Language: Greek Coding Level of Care Code ED Sewer Contractor for Amy Mitchell
--- NOTE | 2025-02-24 17:47 | CTR_ITS ---
PROCEDURE INFORMATION: Exam: CT Abdomen And Pelvis With Contrast Exam date and time: 02/24/2025 6:12 PM Age: 34 years old Clinical indication: Nausea and vomiting; Abdominal pain; Localized; Prior surgery; Surgery date: 1-6 months; C/O upper abd pain and n/v. Gastric bypass one month ago. ; Additional info: Abd pain/status post gastric bypass 1 month TECHNIQUE: Imaging protocol: Computed tomography of the abdomen and pelvis with contrast. Radiation optimization: All CT scans at this facility use at least one of these dose optimization techniques: automated exposure control; mA and/or kV adjustment per patient size (includes targeted exams where dose is matched to clinical indication); or iterative reconstruction. Contrast material: OMNI 350; Contrast volume: 100 ml; Contrast route: INTRAVENOUS (IV); COMPARISON: US pelvic complete* [id number] 07/28/2024 2:00 PM RADIATION DOSE METRICS: Total DLP (mGy-cm): 1161.51 FINDINGS: Liver: Normal. No mass. Gallbladder and biliary ducts: Post cholecystectomy. Pancreas: Normal. No ductal dilation. Spleen: There is mild nonspecific splenomegaly. Adrenal glands: Normal. No mass. Kidneys and ureters: Normal. No hydronephrosis. Stomach and bowel: Status post Roverto-en-Y gastric bypass surgery. No obstruction. No anastomotic leakage. Appendix: No evidence of appendicitis. Intraperitoneal space: Unremarkable. No free air. No significant fluid collection. Vasculature: Unremarkable. No abdominal aortic aneurysm. Lymph nodes: Unremarkable. No enlarged lymph nodes. Urinary bladder: Unremarkable as visualized. Reproductive: Unremarkable as visualized. Bones/joints: Unremarkable. No acute fracture. Soft tissues: Unremarkable. CT/CT abdomen pelvis w con* [id number] IMPRESSION: No acute findings.
[2025-02-24] MEDS: iohexol 350 mg/mL 500 mL Btl (per mL) IV (18:14)
[2025-02-24] MEDS: ondansetron 2 mg/ML SDV 2 mL 4 MG IVP (18:31)
[2025-02-24 18:33] LABS: Glucose Urine UA Negative (Normal); Nitrate Urine Negative (Negative)
[2025-02-24 19:21] LABS: Specific Gravity, Urine 1.031 (1.005-1.030)
[2025-02-24 19:29] VITALS: BP 147/82; PULSE 60; O2SAT 100
[2025-02-24 19:33] LABS: UA Manual Slide Review YES
[2025-02-24 19:34] LABS: Add Urine Microscopic? YES
[2025-02-24 19:36] LABS: UA Slide Review UA Slide Review Perf
[2025-02-24 20:08] VITALS: BP 121/74; PULSE 61; O2SAT 100
[2025-02-24 20:39] VITALS: BP 121/74; PULSE 59; O2SAT 100
== END 2025-02-24 20:41 | disposition home or self-care (01) ==
PROVIDERS: Emergency Medicine; Emergency Provider Emergency Medicine; PCP Family Medicine
DX: R10.9 Unspecified abdominal pain (principal)
CPT/HCPCS: 36415; 74177; 80053; 81001; 83690; 84703; 85025; 87086; 96374; 99285; J2405; J7030

== ENCOUNTER 2025-03-20 07:58 | Emergency (ER) | payer MEDICAID, SELFPAY ==
[2024-04-28 15:47] VITALS: BP 174/92; BMI 51.6
--- OUTSIDE RECORDS SUMMARY | 2025-03-01 23:59 | XMS_ITS | Continuity of Care Document ---
Author Name [facility] Address [address] [place] [address] Organization [facility] Care Team Providers Care Instructor Adjunct Surgical Technician Name Role Phone [facility] Unavailable Unavailable Problems Problem Status Onset Date [...] >1</sup> Assertion Allergy to substance Active Denisa [facility] Soap [facility] Results Order Name Results Value Reference Range Date Interpretation Comments Source GENERAL CHEMISTRY Creatinine, standardized 0.7 mg/dL 0.5 - 1.0 01/27 10:11 :00 Interpretive Data: Svzeze-lj-ves e transgender patients on testosterone therapy should have results assessed using the male reference range. Iqrs-qc-kaigm e transgender patients on hormone-modul ating therapy clinical judgment is advisedfor assessment. [facility] GENERAL CHEMISTRY BUN 9 mg/dL 6 - 20 01/27 10:11 :00 [facility] GENERAL CHEMISTRY Calcium 8.9 mg/dL 8.3 - 10.6 01/27 10:11 :00 [facility] GENERAL CHEMISTRY Estimated GFR for Adults 116 mL/min/1.7 3m 01/27 10:11 :00 Interpretive Data: Changed to CKD-EPI 2020 on 2020. [facility] GENERAL CHEMISTRY Glucose Lvl 141 mg/dL 70 - 139 01/27 10:11 :00 [facility] GENERAL CHEMISTRY Estimated GFR for peds Not Calculated mL/min/1.7 3m 01/27 10:11 :00 Interpretive Data: The estimated GFR was calculated using the B tru Burns equation (2009) . Reference: Pediatric GFR calculator at [employer] Website. [facility] GENERAL CHEMISTRY Chloride 105 mmol/L 98 - 107 01/27 10:11 :00 [facility] GENERAL CHEMISTRY Sodium 138 mmol/L 136 - 145 01/27 10:11 :00 [facility] GENERAL CHEMISTRY Potassium 3.8 mmol/L 3.5 - 5.1 01/27 10:11 :00 [facility] GENERAL CHEMISTRY CO2 26 mmol/L 20 - 31 01/27 10:11 :00 [facility] GENERAL CHEMISTRY Anion gap 11 mmol/L 0 - 20 01/27 10:11 :00 [facility] HEMATOLOGY PROFILES % Basophils 0.1 % 01/27 10:11 :00 [facility] HEMATOLOGY PROFILES % Eosinophils 0.0 % 01/27 10:11 :00 [facility] HEMATOLOGY PROFILES % Monocytes 6.4 % 01/27 10:11 :00 [facility] HEMATOLOGY PROFILES Absolute Neutrophils 5.99 x10(9)/L 1.70 - 7.00 01/27 10:11 :00 [facility] HEMATOLOGY PROFILES % Immature Granulocytes 0.40 % 0.02 - 0.42 01/27 10:11 :00 [facility] HEMATOLOGY PROFILES Absolute Nucleated RBCs 0.0 x10(9)/L 0.0 - 0.0 01/27 10:11 :00 Interpretive Data: Normal values not established in patients less than 18 years old. [facility] HEMATOLOGY PROFILES % Nucleated RBCs 0.0 % 01/27 10:11 :00 [facility] HEMATOLOGY PROFILES Abs Eosinophils 0.00 x10(9)/L 0.05 - 0.50 07/18 /2025 10:11 :00 [facility] HEMATOLOGY PROFILES Abs Monocytes 0.53 x10(9)/L 0.30 - 0.90 01/27 10:11 :00 [facility] HEMATOLOGY PROFILES Abs Lymphocytes 1.70 x10(9)/L 0.90 - 2.90 01/27 10:11 :00 [facility] HEMATOLOGY PROFILES % Lymphocytes 20.6 % 01/27 10:11 :00 [facility] HEMATOLOGY PROFILES % Neutrophils 72.5 % 01/27 10:11 :00 [facility] HEMATOLOGY PROFILES Abs Immature Granulocytes 0.03 x10(9)/L 0.00 - 0.03 01/27 10:11 :00 [facility] HEMATOLOGY PROFILES Abs Basophils 0.01 x10(9)/L 0.00 - 0.30 01/27 10:11 :00 [facility] HEMATOLOGY PROFILES RDW SD 48.4 fL 36.4 - 46.3 01/27 10:11 :00 [facility] HEMATOLOGY PROFILES RDW CV 15.3 % 11.9 - 15.5 01/27 10:11 :00 [facility] HEMATOLOGY PROFILES MCHC 32.8 g/dL 32.0 - 36.0 01/27 10:11 :00 [facility] HEMATOLOGY PROFILES MCH 28.4 pg 26.0 - 33.0 01/27 10:11 :00 [facility] HEMATOLOGY PROFILES PLT 294 x10(9)/L 150 - 450 01/27 10:11 :00 [facility] HEMATOLOGY PROFILES HGB 11.2 g/dL 12.0 - 15.5 01/27 10:11 :00 Interpretive Data: Tmejom-lf-vmd e transgender patients on testosterone therapy should have results assessed using the male reference range. Frla-yq-uirzu e transgender patients on hormone-modul ating therapy clinical judgment is advisedfor assessment. [facility] HEMATOLOGY PROFILES RBC 3.94 x10(12)/L 3.90 - 5.03 01/27 10:11 :00 [facility] HEMATOLOGY PROFILES WBC 8.26 x10(9)/L 3.50 - 10.50 01/27 10:11 :00 [facility] HEMATOLOGY PROFILES MPV 10.9 8.0 - 12.0 01/27 10:11 :00 [facility] HEMATOLOGY PROFILES HCT 34.1 % 34.9 - 44.5 01/27 10:11 :00 Interpretive Data: Offixe-zu-blj e transgender patients on testosterone therapy should have results assessed using the male reference range. Xkai-bp-rplex e transgender patients on hormone-modul ating therapy clinical judgment is advisedfor assessment. [facility] HEMATOLOGY PROFILES MCV 86.5 fL 81.6 - 98.3 01/27 10:11 :00 [facility] SITE LAB RESULTS POC U hCG (Rals) Negative *NA* (01/26/25 5:04 AM) 01/26 10:04 :00 [facility] SITE LAB RESULTS POC U hCG (Rals) Negative *NA* (09/09/24 9:51 AM) 09/09 15:51 :00 [facility] Surgical Report Surgical Report SURGICAL PATHOLOGY REPORT Patient Name: AFUA RATLIFF Specimen Number: [id number] Patient Collection Date: 09/09/2024 Submitting Physician: Ananth [...] in the diagnosis) , per policy. Candelaria Caldera M.D. Electronic ally Signed Out ======== History GERD Gross Descriptio n In formalin labeled 'gastric antrum' are two, 3 x 2 x 2 mm and 4 x 1 x 1 mm pieces of patel-pink mucosa. Submitted entirely in 1A. (ADAMARIS Pang ([facility])) TSL The performanc e characteri stics of the immunohist ochemical stains cited in this report (if any) were determined by the [facility] Department of Pathology. They have not been [...] each specimen. 09/09 10:55 :00 Missing Attachment [id number] can be viewed in source system [facility] Consultation Notes Results Value Date Source General Surgery Clinic Note Chief Complaint pop History of Present Illness Procedure: Robotic assisted laparoscopic Benjamin-en-Y gastric bypass Date of Procedure: 01/26/25 Highest [...] post op protocol Yes with discussion with loan clerk today Yes 3. Modifications to standard protocol: Discontinue Zofran, Start Reglan 5 mg oral PRN for nausea, Start Miralax BID for constipation 4. Cont PPI until 3 months post op -attended postoperative class or had discussion with loan clerk today to discuss dietary advancement, use of postoperative vitamins, appropriate behaviors for bed bug exterminator success The visit required complex medical management [...] nasal 50 mcg/inh spray), 50 mcg= 1 Alexis, Each Nostril, Daily galcanezumab(Emgality Prefilled Pen 120 mg/mL subcutaneous solution), 120 mg, Subcutaneous, [id number] montelukast(montelukast 10 mg oral tablet), 10 mg= [...] 2.) Esophagogastrojejunoscopy ATTENDING SURGEON: Ki Ordoñez MD MACARONI PRESS OPERATOR: 1.) Nolan Campo MD (fellow) 2.) Bettina [...] the pouch was freely mobile. A 36 Vietnamese VISIGI bougie was inserted into the gastric [...] the stapler prior to firing. The 36 Vietnamese VISIGI bougie was then passed across the gastrojejunostomy. The common enterotomy was closed with a running 3-0 Stratafix PDS spiral suture. Another running 3-0 Stratafix PDS spiral suture was used to create a second anterior row. A window in the mesentery of the loop of jejunum just lateral to the gastrojejunal anastomosis was created with the needle drivers license examiner. The jejunum was then transected with a [...] esophagogastroduodenoscopy. Ki Ordoñez MD 01/26/2025 Op/Procedure Note [id number] Patie nt Out-Room Date/Time: 26-JAN-2025 10:29 Primary [...] 1.25 mg (50,000 intl units) oral capsule), [id number] IntUnits= 1 capsule(s), Oral, qWed Sat FLUoxetine(FLUoxetine [...] labs: (pt requests to get drawn at [facility] as she received medicaid ride) completed [...] 1.25 mg (50,000 intl units) oral capsule), [id number] IntUnits= 1 capsule(s), Oral, qWed Sat FLUoxetine(FLUoxetine [...] Results Visit Information Attending Physician: Mecca Yu SPACE CONTROL SUPERVISOR Primary Care Physician: Binu Villeda MD Visit [...] labs: (pt requests to get drawn at [employer] as she received medicaid ride) completed 10/30/24--under [...] 1.25 mg (50,000 intl units) oral capsule), [id number] IntUnits= 1 capsule(s), Oral, qWed Sat FLUoxetine(FLUoxetine [...] Results Visit Information Attending Physician: Mecca Yu [facility] Primary Care Physician: Binu Villeda MD Visit Date: 11/16/2024 11/16/2024 Health Psychology Evaluation Clinic Note Provider location: [facility] Patient location: [facility] Referred by: Ki Ordoñez MD/[facility] Trainee/Carton Lettering Machine Operator: Dionne Chawla M.S. Sources of information: Records [...] ) of nearly one year live in [place], [place] with her son ([id number]) and her partner's two children. She described [...] has qualified for SSI disability benefits since 47-vkw[age] and has worked intermittently since then. Most [...] reported that she has an acquaintance through advent that she feels comfortable reaching out to [...] disorder, current symptoms include fear of abandonment, wpjxz-os-bljckh responses, and reassurance seeking. She initiated taking [...] in the context of severe depression at 88-ugcmk-zit. Ms. Ratliff endorsed current and recent suicidal [...] is provided in recommendations below (link to [facility] website). The purpose of the [...] of surgery can be requested from the [facility] or find it on their website at: [email or web address]/conditions-treat [email or web address]/surgical/[email or web address]-surgery/nutritio n-services. 2. For additional social support, the patient is encouraged to join the [facility]) Facebook page for more information on their private Facebook support group ([email or web address].[email or web address]/groups/[email or web address]). 3. If the patient experiences difficulties [...] or using a smartphone application such as Project Manager or Kaymu.pk. Starting this behavior early will help establish [...] Clinical Professor Director of Behavioral Health at [facility] Department of Health Psychology Professional Services Time [...] labs: (pt requests to get drawn at [facility] as she received medicaid ride) Ordered full bariatric lab panel including: CBC with Auto Differential Comprehensive Metabolic Panel Ferritin Level Folate Level Intact PTH Iron Level and TIBC Magnesium Level Phosphorus Level Copper, serum-[place] Vitamin B1 (Thiamin) Whole Blood-[place] Vitamin B12 Level Vitamin K1 level-[place] Vitamin A level-[place] Vitamin D Level Zinc Level-[place] TSH T4 A1c PENDING: PSYCH EVAL: in [...] Results Visit Information Attending Physician: Mecca Yu [facility] Primary Care Physician: Binu Villeda MD Visit Date: 10/06/2024 10/06/2024 Op/Procedure Note Indication for Surge ry 33 yo F with hx of obesity undergoing surgical eval for RYGB Operation Esophagogastroduodenoscopy with gastric biopsies (antrum) Surgeon(s) Ananth Robertson MD In Service Education Teacher Alex Cantu MD, PGY1 Anesthesia MAC Estimated [...] exercise module includes the recommendations from the [place] [employer], benefits of exercise and goal [...] Results Visit Information Attending Physician: Mecca Yu SPACE CONTROL SUPERVISOR Visit Date: 08/25/2024 08/25/2024 General Surgery Clinic [...] nasal 50 mcg/inh spray) 50 mcg, 1 Alexis, Each Nostril, Daily, 0 Refill(s) galcanezumab (Emgality Prefilled Pen 120 mg/mL subcutaneou 120 mg, Subcutaneous, k6uxezy, 0 Refill(s) montelukast (montelukast 10 mg) 10 [...] Ordoñez MD [facility] [address] [address] Confirmed PS2 01/31/2025 09:30 AM CDT Betty De Jesus RDN [facility] [address] [address] Confirmed Nursing/Other Orders Bariatric Diet [...] Metabolic Center SpO2 97 % 09/09/2024 17:22:02 [facility] Heart Rate 69 bpm 09/09/2024 17:22:02 [facility] SBP NIBP 148 mm[Hg] 09/09/2024 17:20:00 [facility] DBP NIBP 99 mm[Hg] 09/09/2024 17:20:00 [facility] Mean NIBP 112 mm[Hg] 09/09/2024 17:20:00 [facility] Respiratory Rate 16 breaths/min 09/09/2024 17:20:00 [facility] SpO2 96 % 09/09/2024 17:19:39 [facility] Heart Rate 67 bpm 09/09/2024 17:19:39 [facility] Mean NIBP 98 mm[Hg] 09/09/2024 17:10:01 [facility] SBP NIBP 136 mm[Hg] 09/09/2024 17:10:01 [facility] DBP NIBP 83 mm[Hg] 09/09/2024 17:10:01 [facility] Respiratory Rate 16 breaths/min 09/09/2024 17:10:00 [facility] SpO2 99 % 09/09/2024 17:03:02 [facility] Heart Rate 93 bpm 09/09/2024 17:02:57 [facility] Temperature (Celsius) 36.2 Jeanette 09/09/2024 17:02:00 [facility] Respiratory Rate 16 breaths/min 09/09/2024 17:02:00 [facility] Respiratory Rate 18 breaths/min 09/09/2024 16:06:00 [facility] SBP NIBP 154 mm[Hg] 09/09/2024 16:06:00 [facility] DBP NIBP 70 mm[Hg] 09/09/2024 16:06:00 [facility] Temperature (Celsius) 36.1 Jeanette 09/09/2024 16:06:00 [facility] Heart Rate 91 bpm 09/09/2024 16:06:00 [facility] SpO2 99 % 09/09/2024 16:06:00 [facility] Weight (kg) 148.6 kg 09/09/2024 16:06:00 [facility] Encounters Location Location Details Encounter Type Encounter Number Reason For Visit Attending Provider ADM Date DC Date Status Source [facility] [id number] Ki Ordoñez 08/09 17:07 :43 08/10 05:59 :59 [facility] Care [id number] Mecca Yu 08/25 13:55 :22 08/26 05:59 :59 [facility] [id number] Ki Ordoñez 08/25 13:58 :26 08/26 05:59 :59 [facility] Nurse Phone Call Clinic [id number] Triston Bird 09/09 13:00 :53 09/10 05:59 :59 [facility] Outpatient Day Surgery [id number] Ananth Robertson 09/09 15:39 :11 09/10 05:59 :59 [facility] Psychology Clinic [id number] Afua Thayer 10/06 14:51 :05 10/07 04:59 :59 [facility] Health Psychology [facility] [id number] Ki Ordoñez 10/06 16:13 :31 10/07 04:59 :59 [facility] [id number] Mecca Yu 10/06 16:14 :01 10/07 04:59 :59 [facility] Non-Admit [id number] Mecca Yu 11/09 13:07 :56 11/10 04:59 :59 [facility] Non-Admit [id number] Ki Ordoñez 11/09 13:08 :51 11/10 04:59 :59 [facility] [id number] Ki Ordoñez 11/15 12:44 :26 11/16 04:59 :59 [facility] [id number] Mecca Yu 11/16 12:45 :05 11/17 04:59 :59 [facility] [id number] Mceca Yu 12/22 12:45 :56 12/23 04:59 :59 [facility] [id number] Ki Ordoñez 01/03 16:19 :15 01/04 04:59 :59 [facility] [id number] Ki Ordoñez 01/03 16:20 :29 01/04 04:59 :59 [facility] Inpatient [id number] Nolan Campo 01/26 09:45 :10 01/27 18:28 :00 [facility] Nurse Phone Call Clinic [id number] Triston Bird 01/26 14:15 :26 01/27 04:59 :59 [facility] [id number] Ki Ordoñez 01/31 13:53 :24 02/01 04:59 :59 [facility] [id number] Ki Ordoñez 01/31 13:55 :55 02/01 04:59 :59 [facility] [id number] Ki Ordoñez 03/01 12:39 :47 03/02 04:59 :59 [facility] Procedures Procedure Code Date Perfomer Comments Source EGD 09/09/2024 06:00:00 [facility] Cholecystectomy [facility] Cyst removal [facility] L Knee Scope - ACL Repair, Meniscus Repair [facility] Plan of Care Plan of Care Date Source No data available for this section 03/02/2025 [facility] No data available for this section 02/01/2025 [facility] Social History Social History Date Source No data available for this section 03/02/2025 [facility] No data available for this section 02/01/2025 [facility] No data available for this section 01/27/2025 [facility] No data available for this section 01/27/2025 [facility] No data available for this section [...]
--- NOTE | 2025-03-20 08:01 | ECG_ITS ---
Virtual Paper Test Date: 2025-03-20 Pat Name: Afshan Ratliff Department: Room: Gender: Female Grades 7 8 Tutor: : 1990 Requested By: Hernesto Barker Order Number: [id number] Reading MD: TAMAR HAYNES Measurements Intervals [place] Rate: 66 P: 44 VA: 175 QRS: 34 QRSD: 109 T: 27 QT: 385 QTc: 404 Interpretive Statements SINUS RHYTHM Compared to ECG 06/11/2022 20:39:54 Sinus arrhythmia no longer present Incomplete right bundle-branch block no longer present ST (T wave) deviation no longer present Electronically Signed On 03-20-2025 10:45:17 CDT by TAMAR HAYNES [email or web address]
--- OUTSIDE RECORDS SUMMARY | 2025-03-20 08:11 | XMS_ITS | Patient Health Record ---
Author Organization [facility] Address [address] [place], [place] [id number] Care Team Providers Care Wing Commander Name Role Phone LORRAINE MCKEON Unavailable [phone] CALEB Cavazos Unavailable Unavailable Reason For Referral No Information Plan Of Treatment No Information Insurance Providers Payer Name Payer Address Payer Phone Subscriber Number Group Number Insured Name Patient Relationship to Insured Coverage Start Date Coverage End Date [facility] [address] [place] [phone] [id number] AFUA BRYANT Self - patient is the insured
--- OUTSIDE RECORDS SUMMARY | 2025-03-20 08:11 | XMS_ITS | Clinical Summary ---
Author Organization [facility] Address [address] [place] [address] Care Team Providers Care Progressive Die Maker Name Role Phone Unavailable Primary Care Provider Unavailabl e Social History Tobacco Use Types Packs/Day Years Used Date Smoking Tobacco: Never Assessed Comments Unknown Sex and Gender Information Value Date Recorded Sex Assigned at Not on file Legal Sex Female 12:12 PM TITLE INSURANCE SALES REPRESENTATIVE Gender Identity Not on file Sexual Orientation Not on file Plan of Treatment Upcoming Encounters Date Type Department Care Team ([facility] Contact Info) Description 04/20/2025 10:30 AM CDT Office Visit [facility] Neurology [facility] [address] [address] Debbie Bravo MD [address] [facility] [address] [place] [address] Health Maintenance Due Date Last Done Comments DTAP/TDAP/TD VACCINES (1 - Tdap) 2008 HEPATITIS B VACCINES (1 of 3 - 19+ 3-dose series) 09/11 HPV/Cotest (21-29) 2010 HPV VACCINES (1 - 3-dose SCDM series) 2016 CERVICAL CANCER SCREENING 10/01/2019 HPV/Cotest (30-65) 10/01/2019 PAP SMEAR 10/01/2019 INFLUENZA VACCINE (#1) 2025 Insurance #[id number] [place] [address] [facility] PLAN MEDICAID
--- OUTSIDE RECORDS SUMMARY | 2025-03-20 08:11 | XMS_ITS | Patient Health Record ---
Author Organization [facility] Address [address] [place] [address] Support Name Relationship Address Phone Afshan Ratliff Guarantor Unknown [phone] Reason For Referral No Information Medications Medication SIG (Take, Route, Frequency, Duration) Notes Start Date End Date Status Flonase Allergy Relief 50 MCG/ACT Suspension Nasal Active Tylenol oral *please review f or potential update for e-prescription and drug interaction check* Active Plan Of Treatment No Information Insurance Providers Payer Name Payer Address Payer Phone Subscriber Number Group Number Insured Name Patient Relationship to Insured Coverage Start Date Coverage End Date [facility] Community Plan [address] [address] [place] [phone] [id number] [facility]shan Ratliff Self - patient is the insured [employer] [place] [address] [place] [address] [id number] Afshan Ratliff Self - patient is the insured 1 Medical (General) History Surgical History Surgery Date(Month/Year) Gallbladder Removal; 2019-01-04 Cyst Removal; 2019-01-04 Knee Sugery; 2019-01-04
--- NOTE | 2025-03-20 08:13 | W.ED.GENADLT ---
HPI - General Adult General: Chief complaint: Dizziness Stated complaint: LOTT, nausea, lightheaded Time Seen by Provider: 03/20/25 07:59 History of Present Illness: 34-year-old female presents emergency room complaining of headache nausea lightheadedness. Patient had a hysterectomy 4 days ago. She had it before uterine fibroids. She has not had any fever. Her headache is at the base of her skull primarily on the left side. She has been nauseous with it and somewhat dizzy. She describes a sensation as static electricity through her entire body. She has not had any abdominal pain no vomiting or diarrhea. Associated symptoms: Deny chest pain, dyspnea or rash Related Data Home Medications ?Medication ?Instructions ?Recorded ?Confirmed fluticasone propionate 50 1 spray intranasal QAM 06/09/22 02/09/25 mcg/actuation nasal spray,suspension (Flonase Allergy Relief) ferrous sulfate 325 mg (65 mg 325 mg PO DAILY 06/03/24 02/09/25 iron) tablet (Feosol) montelukast 10 mg tablet mg PO 08/11/24 02/09/25 cetirizine 10 mg tablet mg PO 11/16/24 02/09/25 cholecalciferol (vitamin D3) 125 125 mcg PO .Wed. & Sat. 02/09/25 02/09/25 mcg (5,000 unit) capsule [id number] 45 mg-folic cap PO DAILY 02/09/25 02/09/25 acid 800 mcg-vit K 120 mcg capsule (Bariatric Multivitamins) pantoprazole 40 mg tablet,delayed 40 mg PO QAM 02/09/25 02/09/25 release polyethylene glycol 3350 17 4 g PO BID PRN 02/09/25 02/09/25 gram/dose oral powder (Miralax) Previous Rx's ?Medication ?Instructions ?Recorded albuterol sulfate 90 mcg/actuation 2 inh inhalation Q4H PRN shortness 07/06/22 aerosol inhaler of breath or wheezing #8.5 grams bupropion HCl 150 mg 24 hr tablet, 150 mg PO QAM #30 tabs 02/09/25 extended release (Wellbutrin XL) fluoxetine 40 mg capsule 80 mg (2 x 40 mg) PO QAM #60 caps 02/09/25 trazodone 50 mg tablet 100 mg (2 x 50 mg) PO .HS PRN 02/09/25 insomnia #60 tabs [id number] 120 mg/mL See Rx Instructions .Route 02/13/25 subcutaneous pen injector .COMPLEX #1 mL (Emgality Pen) Allergies Allergy/AdvReac Type Severity Reaction Status Date / Time Latex, Natural Rubber Allergy Intermediate Burn & Verified 02/09/25 10:24 itching. soap Allergy ALGY-Redness Verified 02/24/25 14:15 of Skin Review of Systems Const: Denies: fever(s) or chills Card: Denies: chest pain Resp: Denies: dyspnea GI: Denies: abdominal pain : Denies: dysuria, urinary frequency or urinary urgency Musc: Denies: neck pain or back pain Skin/Breast: Denies: rash PFSH ED PFSH: Medical History Psychiatric care Family History Grandmother Hypertension High cholesterol Other Cancer Psychiatric illness Denies family history of Colon cancer Ovarian cancer Diabetes Heart disease Uterine cancer Thyroid disease Stroke Social History Smoking and tobacco/nicotine status: never used tobacco/nicotine Second hand smoke exposure: Yes Alcohol intake: current Alcohol intake frequency: holidays/special occasions only Alcohol type: beer, wine and hard liquor Substance/Drug Use: current Substance/Drug use frequency: Special occassions/opportunity only Adopted: No Caregiver/support person: No Lives independently: Yes Household members: children Housing: Apartment Marital status: Single Number of children: 1 Highest education level completed: High School Graduate service: No Current occupational status: disabled Pets and animals: Yes Pets & animals: dog(s) Leisure activites: clubs, art, music, games and reading Sexually active: Yes Do you think of yourself as: Straight/Heterosexual Current gender identity: Female La/Episcopalian: Christianity Special la needs: No Agree to transfusion: Yes Female Reproductive History: Para: 1 Spontaneous abortions: Yes (X2) Physical Exam Const: GENERAL APPEARANCE: cooperative ORIENTATION/CONSCIOUSNESS: Yes awake, Yes oriented to person, Yes oriented to place and Yes oriented to time HENMT: COMMON NORMALS: normocephalic, atraumatic and hearing grossly normal bilaterally HEAD & SCALP: normocephalic and atraumatic Resp: COMMON NORMALS: normal respiratory effort, No retractions, No use of accessory muscles and clear to auscultation bilaterally AUSCULTATION: clear to auscultation bilaterally Cardio: COMMON NORMALS: regular rate, regular rhythm and No murmurs present (Cardio) RATE: regular rate RHYTHM: regular rhythm GI: COMMON NORMALS: Soft to palpation and No hepatosplenomegaly present AUSCULTATION: Yes normoactive bowel sounds PALPATION: Yes Soft to palpation, No Tenderness to palpation present (GI), No Guarding due to palpation present (GI) and Yes No hepatosplenomegaly present Extremity: COMMON NORMALS: normal to inspection, capillary refill normal, no clubbing, cyanosis or edema, no calf tenderness and no pedal edema Neuro: SENSORIUM/ORIENTATION: Yes oriented to person, Yes oriented to place and Yes oriented to time Skin: COMMON NORMALS: no rashes or lesions noted GENERAL SKIN EXAM: no rashes or lesions noted Course Vital Signs: Vital signs: Vital Signs Temperature 98.1 F 03/20/25 08:16 Pulse Rate 87 03/20/25 10:19 Respiratory Rate 18 03/20/25 08:16 Blood Pressure 138/76 03/20/25 10:19 Pulse Oximetry 95 03/20/25 10:19 Oxygen Delivery Me thod Room Air 03/20/25 08:44 [facility] - General Adult Medical Decision Making Labs reviewed. No significant findings other than her hemoglobin has dropped some probably not unexpectedly given her recent hysterectomy. On 02/24/2025 she had a hemoglobin 12.5 today she is at 10.2. She does feel somewhat better after the IV fluids most of her symptoms are related to change in posture. No significant orthostatic changes when tested. Blood pressure remains at 138-136. Will discharge patient home continue same restrictions as she had postop from her hysterectomy. Discussed with her she may benefit from iron supplementation [id number] or even use vitamins which do have significant amount of iron to them return if she has further problems. She has no white count no fever abdominal exam is benign no evidence of any other postoperative complications at this time. Medical Records I reviewed the patient's medical records. Lab Data I reviewed the patient's lab results. 03/20/25 09:45 03/20/25 09:45 Laboratory Results WBC 5.21 10^3/uL (3.29-11.43) 03/20/25 09:45 Corrected WBC Cancelled 03/20/25 08:27 RBC 3.44 10^6/uL (3.85-5.65) L 03/20/25 09:45 Hgb 10.20 g/dL (11.27-16.99) L 03/20/25 09:45 Hct 30.3 % (36-47) L 03/20/25 09:45 MCV 88.1 fl (85-98) 03/20/25 09:45 MCH 29.7 pg (27-33) 03/20/25 09:45 MCHC 33.7 g/dL (30-55) 03/20/25 09:45 RDW 15.5 % (12.1-15.1) H 03/20/25 09:45 Plt Count 201 10^3/cmm (157-399) 03/20/25 09:45 MPV 11.2 fL (7.4-10.4) H 03/20/25 09:45 Gran % Cancelled 03/20/25 08:27 Neut % (Auto) 58.3 % 03/20/25 09:45 Lymph % (Auto) 29.6 % 03/20/25 09:45 [place] % (Auto) 5.4 % 03/20/25 09:45 Eos % (Auto) 6.1 % 03/20/25 09:45 Baso % (Auto) 0.4 % 03/20/25 09:45 Neut # (Auto) 3.04 10^3/uL (1.8-7.7) 03/20/25 09:45 Lymph # (Auto) 1.5 10^3/uL (0.8-4.8) 03/20/25 09:45 [place] # (Auto) 0.3 10^3/uL (0.2-0.9) 03/20/25 09:45 Eos # (Auto) 0.3 10^3/uL (0.0-0.8) 03/20/25 09:45 Baso # (Auto) 0.0 10^3/uL (0.0-0.1) 03/20/25 09:45 Absolute Gran (auto) Cancelled 03/20/25 08:27 Nucleated RBC % (auto) 0 % 03/20/25 09:45 Nucleated RBCs # 0.0 /100WBC 03/20/25 09:45 Sodium 138 mmol/L (136-145) 03/20/25 09:45 Potassium 4.0 mmol/L (3.5-5.1) 03/20/25 09:45 Chloride 105 mmol/L (98-107) 03/20/25 09:45 Carbon Dioxide 21 mmol/L (22-29) L 03/20/25 09:45 Anion Gap 16.0 (5-19) 03/20/25 09:45 BUN 11 mg/dL (6-20) 03/20/25 09:45 Creatinine 0.5 mg/dL (0.5-0.9) 03/20/25 09:45 GFR Calculation 140.4 mL/min (90-130) H 03/20/25 09:45 Glucose 99 mg/dL (65-115) 03/20/25 09:45 Calculated Osmolality 285 mOsm/kg (285-295) 03/20/25 09:45 Calcium 8.6 mg/dL (8.5-10.5) 03/20/25 09:45 Total Bilirubin 0.5 mg/dL (0.15-1.2) 03/20/25 09:45 AST 8 U/L (0-32) 03/20/25 09:45 ALT 10 U/L (0-33) 03/20/25 09:45 Alkaline Phosphatase 61 U/L (35-105) 03/20/25 09:45 Total Protein 6.4 g/dL (6.6-8.7) L 03/20/25 09:45 Albumin 3.5 g/dL (3.5-5.2) 03/20/25 09:45 Globulin 2.9 g/dL (1.3-4.6) 03/20/25 09:45 All radiology interpretation(s) finalized by discharge Discharge Plan Discharge Patient Disposition: Home Clinical Impression: Anemia, Status post vaginal hysterectomy Condition: Stable Prescriptions: No Action fluticasone propionate [Flonase Allergy Relief] 50 mcg/actuation spray,suspension 1 spray intranasal QAM Rx Instructions: administer into each nostril ferrous sulfate [Feosol] 325 mg (65 mg iron) tablet 325 mg PO DAILY cetirizine 10 mg tablet PO pantoprazole 40 mg tablet,delayed release (DR/EC) 40 mg PO QAM polyethylene glycol 3350 [Miralax] 17 gram/dose powder 4 g PO BID PRN cholecalciferol (vitamin D3) 125 mcg (5,000 unit) capsule 125 mcg PO .Wed. & Sat. Bariatric Multivitamins 45 mg iron- 800 mcg-120 mcg capsule PO DAILY fluoxetine 40 mg capsule 80 mg PO QAM Qty: 60 11RF bupropion HCl [Wellbutrin XL] 150 mg tablet extended release 24 hr 150 mg PO QAM Qty: 30 11RF trazodone 50 mg tablet 100 mg PO .HS PRN (Reason: insomnia) Qty: 60 11RF montelukast 10 mg tablet PO Emgality Pen 120 mg/mL pen injector See Rx Instructions .ROUTE .COMPLEX Qty: 1 6RF Dose Instruction: Inject 120mg UNDER THE SKIN monthly. Start one MONTH AFTER loading DOSE Rx Instructions: Inject 120mg UNDER THE SKIN monthly. Start one MONTH AFTER loading DOSE albuterol sulfate 90 mcg/actuation HFA aerosol inhaler 2 inh inhalation Q4H PRN (Reason: shortness of breath or wheezing) Qty: 8.5 0RF Discharge Orders: Discharge ED (Routine); Ordered 03/20/25 Ordered By: Hernesto Jackson Referrals: Binu Villeda MD [Primary Care Provider, Family Practice] Discharge Diet: Usual diet Discharge Activity: Increase activity as tolerated Patient Instructions: Opioid Safety, Pain Management, Patient Portal & [place] Instructions Activity Restrictions/Additional Instructions: Thank you for choosing [facility] for your healthcare needs today. It is very important that you follow up as instructed or that you return to the Emergency Department should you have concerns or if your condition changes or worsens in any way. Emergency department visits are focused on emergent conditions, in some cases you may require further evaluation on an outpatient basis. You are seen emergency room with complaints of dizziness lightheadedness. Your hemoglobin is down likely from your recent surgery this will contribute to that. Your other labs are otherwise unremarkable. Recommended avoid exertional activities follow-up with your surgeon as previously scheduled. Continue to follow other post surgical discharge instructions that were given. (Please note that included in your discharge packet is information concerning opioid safety and pain management. This information is given to all patients were discharged from the ER regardless of their discharge diagnosis or the medicines they usually take or are prescribed.) Print Language: Serbian Coding Level of Care Code ED Silk Printer for Amy Mitchell
[2025-03-20 08:16] VITALS: BP 142/91; PULSE 68; RESP 18; TEMP 36.7; O2SAT 97; BMI 49.4
[2025-03-20 08:44] VITALS: BP 128/71; PULSE 57; O2SAT 98
[2025-03-20 10:13] LABS: Hematocrit 30.3 % (36-47); Hemoglobin 10.20 g/dL (11.27-16.99); Mean Corpuscular HGB Conc 33.7 g/dL (30-55); Mean Corpuscular Hemoglobin 29.7 pg (27-33); Mean Corpuscular Volume 88.1 fl (85-98); Nucleated Red Blood Cells % 0 %; Platelet Count 201 10^3/cmm (157-399); Red Blood Count 3.44 10^6/uL (3.85-5.65); White Blood Count 5.21 10^3/uL (3.29-11.43)
[2025-03-20 10:19] VITALS: BP 136/85; BP 136/86; BP 138/76; PULSE 65; PULSE 76; PULSE 87; PULSE 92; O2SAT 95
[2025-03-20 10:20] LABS: Alanine Aminotransferase 10 U/L (0-33); Albumin Level 3.5 g/dL (3.5-5.2); Alkaline Phosphatase 61 U/L (35-105); Anion Gap 16.0 (5-19); Aspartate Amino Transferase 8 U/L (0-32); Blood Urea Nitrogen 11 mg/dL (6-20); Calcium 8.6 mg/dL (8.5-10.5); Carbon Dioxide 21 mmol/L (22-29); Chloride 105 mmol/L (98-107); Creatinine Clr Calc Pharmacy 210.9126; Globulin 2.9 g/dL (1.3-4.6); Glucose 99 mg/dL (65-115); Osmolality Calculated 285 mOsm/kg (285-295); Potassium 4.0 mmol/L (3.5-5.1); Sodium 138 mmol/L (136-145); Total Protein 6.4 g/dL (6.6-8.7)
== END 2025-03-20 11:27 | disposition home or self-care (01) ==
PROVIDERS: Emergency Provider Family Medicine; PCP Family Medicine
DX: D64.9 Anemia, unspecified (principal); Z98.890 Other specified postprocedural states
CPT/HCPCS: 36415; 80053; 85025; 93005; 96374; 96375; 99284; J0780; J1885; J7030

== ENCOUNTER → 2025-04-26 12:58 | Outpatient (BNVA) | payer OTHER, SELFPAY ==
[2024-04-28 15:47] VITALS: BP 174/92; BMI 51.6
== END ==
PROVIDERS: PCP Family Medicine; Visit Provider Psychiatry & Neurology Neurology
DX: F41.1 Generalized anxiety disorder (principal); F33.2 Major depressive disorder, recurrent severe without psychotic features; F90.0 Attention-deficit hyperactivity disorder, predominantly inattentive type; F43.12 Post-traumatic stress disorder, chronic
CPT/HCPCS: 80061; 83036